=== PATIENT | male | born 1965 | race Caucasian/White ===

== ENCOUNTER 2019-03-27 14:45 | Inpatient (IN) ==
[2019-03-27 15:18] LABS: Microscopic, Urine URINE MICROSCOPIC (MICROSCOPIC)
[2019-03-27 15:21] LABS: Appearance,Urine CLEAR (Clear); Blood, Urine TRACE-I (Negative); Color,Urine YELLOW (Yellow); Glucose,Urine (UA) Negative (Negative); Ketones,Urine 3+ (Negative); Leukocyte Esterase,Urine Negative (Negative); Protein,Urine 1+ (Negative); Specific Gravity, Urine >= 1.030 (1.005-1.030)
--- NOTE | 2019-03-27 15:34 | Emergency Department Note ---
ED Disposition Clinical Impression: Dehydration, Intractable diarrhea, Colitis, Proctitis, Infectious colitis Disposition: Admitted as Observation Condition on Discharge: Fair Additional Instructions: Patient was admitted to the floor under Dr. Deng to Dr. Batista. Referrals: Cristobal Batista MD [Primary Care Provider] - Time of Disposition: 18:48 - Critical Care Critical Care Time: No Attestation: On 03/27/19, the high probability of a clinically significant, sudden or life threatening deterioration of the following system(s) required my full and direct attention, intervention and personal management. The time I documented below is in addition to time spent performing reported procedures but includes the following listed in this critical care notation. Medical Decision Making - Eusebio Inquiry Pt receiving controlled substance: No Vital Signs: 03/27/19 15:05 Temperature 98.4 F Temperature Source Oral Pulse Rate [Right Radial] 122 H Respiratory Rate 18 Blood Pressure [Right Arm] 129/71 Blood Pressure Mean [Right Arm] 90 02 Sat by Pulse Oximetry 97 Oxygen Delivery Method Room Air - Lab Data Lab results reviewed: Yes: I reviewed the patient's lab results. Lab Results 03/27/19 15:15: Urine Color Yellow, Urine Appearance Clear, Urine pH 6.0, Ur Specific [place] >= 1.030, Urine Protein 1+, Urine Glucose (UA) Negative, Urine Ketones 3+, Urine Blood Trace-i, Urine Nitrate Negative, Urine Bilirubin Negative, Urine Urobilinogen 1.0, Ur Leukocyte Esterase Negative, Urine RBC Occasional, Urine WBC 3-5, Ur Squamous Epith Cells 3-5, Urine Bacteria Trace 03/27/19 15:30: WBC 9.3, RBC 4.37 L, Hgb 12.8 L, Hct 38.1 L, MCV 87.2, MCH 29.3, MCHC 33.7, RDW 13.7, Plt Count 361, MPV 7.6, Neut % (Auto) 72.7, Lymph % (Auto) 13.7, [place] % (Auto) 9.2, Eos % (Auto) 3.7, Baso % (Auto) 0.7, Neut # (Auto) 6.8, Lymph # (Auto) 1.3, [place] # (Auto) 0.9, Eos # (Auto) 0.3, Baso # (Auto) 0.1 02/17/20 15:30: Sodium 135 L, Potassium 3.0 L, Chloride 99, Carbon Dioxide 20 L, Anion Gap 19.0 H, BUN 7, Creatinine 0.86, Estimated Creat Clear 119, Estimated GFR 93, Est GFR ( Amer) 112, Glucose 204 H, Calcium 7.8 L, Total Bilirubin 0.8, AST 11 L, ALT 13 L, Alkaline Phosphatase 52, C-Reactive Protein 24.3 H, Total Protein 6.5, Albumin 2.2 L, Globulin 4.3 H, Albumin/Globulin Ratio 0.5 L, Amylase 29, Lipase 148 03/27/19 15:30: ESR 94 H 03/27/19 15:30: Lactate 1.4 Result diagrams: 03/27/19 15:30 03/27/19 15:30 Orders (Tests/Meds): ED MEDICATIONS Generic Name Dose Route Start Last Admin Trade Name Freq PRN Reason Stop Dose Admin Sodium Chloride 1,000 mls @ 999 mls/hr 03/27/19 16:30 03/27/19 18:18 Sod Chlor 0.9% 1000ml Bag IV 03/27/19 17:30 999 mls/hr .Q1H1M DOMINIQUE Administration Sodium Chloride 10 ml 03/27/19 16:08 03/27/19 16:11 Rad-Saline Flush 10ml Syringe IV 04/26/19 16:07 10 ml NEEDED PRN Administration Maintain IV Site Sodium Chloride 10 ml 03/27/19 16:27 Saline Flush 10ml Syringe IV 03/28/19 04:27 NEEDED PRN Maintain IV Site Discontinued Medications Generic Name Dose Route Start Last Admin Trade Name Freq PRN Reason Stop Dose Admin Sodium Chloride 1,000 mls @ 999 mls/hr 03/27/19 15:15 03/27/19 15:30 Sod Chlor 0.9% 1000ml Bag IV 03/27/19 16:15 999 mls/hr .Q1H1M DOMINIQUE Administration Ioversol 75 ml 03/27/19 16:08 03/27/19 16:11 Rad-Optiray 350 100ml Vial IV 03/27/19 16:09 75 ml ONCE ONE Administration Protocol ORDERS Category Date Time Status Diarrhea 6-11 Panel, Cdiff PCR Stat Lab 03/27/19 15:11 Ordered Blood Culture Stat Micro 03/27/19 15:30 Received - CT Data CT Scan: Abdomen Time Received: 18:[address] Reviewed: Yes: I discussed the CT results w/the radiologist Findings Narrative: CT ABDOMEN PELVIS W CON CLINICAL INDICATION: DIARRHEA COMPARISON: CT ABDOMEN PELVIS W CON from 03/09/2019 TECHNIQUE: IV Contrast: 75ML OPTIRAY 350 Oral Contrast 20ml Gastroview Axial images obtained with sagittal and coronal reformats. All CT scans at the facility use one or more dose reduction, viz: automated exposure control, ma/kV adjustment per patient size (including targeted exams where dose is matched to indication, i.e. head), or iterative reconstruction technique. FINDINGS: LOWER THORAX: No acute finding coronary arterial calcifications are noted. ABDOMEN & PELVIS: There is fatty infiltration of the liver. The liver, spleen, pancreas, adrenal glands, and kidneys show no acute finding. No intestinal obstruction or free air. No evidence of appendicitis or diverticulitis. No pelvic mass, or abnormal fluid collection. There is colitis increased over the interval extending from the splenic flexure to the rectum. There is wall thickening and increased attenuation of adjacent pericolonic/rectal fat planes. There is some fluid within the lumen of the involved colon. No abscess free air free fluid or bowel obstruction is apparent. There is some wall thickening of nondistended urinary bladder probably nonpathological related to the nondistention. Cystitis is felt to be less likely. Degenerative disc disease is noted L5-S1. No acute bony anomalies. IMPRESSION: Colitis/proctitis from the level of the splenic flexure. This is increased over the interval. Dictated by: Esau Serna 03/27/2019 16:30 Electronically signed by Esau Serna in [place] 03/27/2019 16:30 - Physician Consults Physician Consulted: Dr. Deng Time: 18:40 Reason -: Admission Comment/Response: Discussed with Dr. Deng, regarding the patient and plan to get the patient admitted for IV antibiotics as well as IV hydration and surgical consult for colonoscopy and further management. - Reevaluation(s) Time: 18:45 Reevaluation #1: Patient has been stable throughout the course of stay in the ER. Discussed the lab values and the CT scan finding with the patient and the family. Plan to discuss the case with the primary care provider in regards to admission and colonoscopy through surgical consult. Discussed with Dr. Deng regarding the patient and he agreed to admit the patient. Nausea/Vomiting/Diarrhea HPI - General Chief complaint: Nausea/Vomiting/Diarrhea Stated complaint: diarrhea,abd pain Time Seen by Provider: 03/27/19 15:31 Mode of Arrival: Ambulatory Source of Information: Patient Limitations: No Limitations Description of Symptoms (Recalled from ER Triage Doc. by RN): received to exam 11 with c/o diarrhea x 1 month. pt states he has seen sandra for complaint but today when he called he was told to come to ed for eval. - History of Present Illness HPI Narrative: 53-year-old male presents to the emergency department with chief complaint of having nausea and vomiting since yesterday. Patient states he has been having diarrheal episode for more than a month. He states he is not able to eat much. He has history of diabetes. Every time he eats a few bites he gets full. Every time he eats he has to go to the bathroom after the eating. He had come to the emergency department about 2 weeks ago had a CT scan done for the same. No acute definitive diagnosis was found. He has taken medications for the same. Still his symptoms have been persistent. He has a scheduled a GI appointment through his primary care provider but the appointment is after 2 months. Denies having any fever or chills. Denies having any dysuria or hematuria. - Related Data Home Medications Medication Instructions Recorded Confirmed Aspirin [Aspir-Low] 81 mg PO DAILY 03/27/19 03/27/19 Atorvastatin Calcium [Atorvastatin 80 mg PO HS 03/27/19 03/27/19 80mg Tab] Clopidogrel Bisulfate [Plavix 75mg 75 mg PO DAILY 03/27/19 03/27/19 Tab] Empagliflozin [Jardiance] 25 mg PO DAILY 03/27/19 03/27/19 Glimepiride 4 mg PO BID 03/27/19 03/27/19 Metformin HCl [Metformin 1000mg 1,000 mg PO BID 03/27/19 03/27/19 Tablets] Metoprolol Tartrate [Lopressor 12.5 mg PO BID 03/27/19 03/27/19 25mg tablet] lisinopriL [Lisinopril 5mg 5 mg PO DAILY 03/27/19 03/27/19 Tablet] Allergies Allergy/AdvReac Type Severity Reaction Status Date / Time No Known Allergies Allergy Verified 03/27/19 15:10 [facility] History - Hepatitis A Screen Drug use history?: No High risk sexual behaviors?: No History of sexually transmitted infection?: No Currently employed?: No Childcare worker?: No Do you have indoor plumbing?: Yes Do you have electricity?: Yes Attestation statement:: This patient has been screened for Hepatitis A risk factors. I have reviewed the patient's past medical history: Yes Medical History: Reports:: Diabetes Mellitus Type 2 Denies:: Diabetes Mellitus Type 1 - Social History Smoking Status: Former smoker Alcohol Intake: never Occupational Status: other ROS Obtained: Yes All systems reviewed & no additional complaints Physical Exam - General General appearance: alert, in no apparent distress - Head Head exam: atraumatic, normocephalic, normal inspection - Eye Eye exam: Present: normal appearance, PERRL, EOMI - ENT ENT exam: Present: normal exam, normal oropharynx, mucous membranes moist, normal external ear exam - Neck Neck exam: Present: normal inspection, full ROM, trachea midline - Chest Chest inspection: Present: normal inspection, symmetric chest wall rise. Absent: tenderness - Respiratory Respiratory exam: Present: normal lung sounds bilaterally. Absent: respiratory distress - Cardiovascular Cardiovascular exam: Present: regular rate, normal rhythm. Absent: JVD - Abdominal Exam Abdominal exam: Present: soft, normal bowel sounds. Absent: distention, tenderness, guarding - Extremities Exam Extremities exam: Present: normal inspection, full ROM, normal capillary refill. Absent: calf tenderness - Back Exam Back exam: Present: normal inspection. Absent: tenderness - Neurological Exam Neurological exam: Present: alert, oriented X3, CN II-XII intact - Psychiatric Psychiatric exam: Present: normal affect, normal mood - Skin Skin exam: Present: warm, dry, intact, normal color
[2019-03-27 15:51] LABS: Albumin Level 2.2 g/dL (3.4-5.0); Albumin/Globulin Ratio 0.5 (1.1-1.8); Bilirubin,Total 0.8 mg/dL (0.2-1.0); Calcium 7.8 mg/dL (8.5-10.1); Globulin 4.3 gm/dl (1.3-3.2); Total Protein,Serum 6.5 g/dL (6.4-8.2)
[2019-03-27 15:54] LABS: Bacteria,Urine Trace /lpf; Bilirubin,Urine Negative (Negative); RBC,Urine Occasional #/hpf (0-3)
[2019-03-27 15:56] LABS: Basophils # 0.1 K/mm3 (0-0.2); Basophils % 0.7 % (0.1-2.0); Eosinophils # 0.3 K/mm3 (0.0-0.4); Eosinophils % 3.7 % (0.1-12.0); Hematocrit 38.1 % (42.0-52.0); Hemoglobin 12.8 g/dL (14.1-18.0); Lymphocytes # 1.3 K/mm3 (0.7-4.5); Lymphocytes % 13.7 % (10-50); Mean Corpuscular HGB Conc 33.7 g/dL (31.8-35.4); Mean Corpuscular Volume 87.2 fl (80-94); Mean Platelet Volume 7.6 fl (7.4-10.4); Monocytes # 0.9 K/mm3 (0.1-1.0); Monocytes % 9.2 % (1.7-9.3); Neutrophils # 6.8 K/mm3 (1.8-7.8); Neutrophils % 72.7 % (37.0-80.0); Platelet Count 361 K/mm3 (142-424); Red Blood Count 4.37 M/mm3 (4.60-6.20); Red Cell Distribution Width 13.7 % (11.5-17.5); White Blood Count 9.3 K/mm3 (4.8-10.8)
[2019-03-27 16:14] LABS: C-Reactive Protein 24.3 mg/dL (0.0-0.9)
--- NOTE | 2019-03-28 07:28 | Pharmacy Consult Notes ---
[facility] Pharmacy VTE Monitoring - Patient Demographics Admission date: 03/27/19 Report Date: 03/28/19 Time: 07:28 Allergies/Adverse Reactions: Patient Allergies No Known Allergies Allergy (Verified 03/27/19 15:10) Height: 1.7 m Weight: 78.13 kg Patient Problems: Current Active Problems Infectious colitis (Acute) Dehydration (Acute) Intractable diarrhea (Acute) Colitis (Acute) Proctitis (Acute) - VTE Risk Labs: VTE Related Lab Results Hgb 12.8 g/dL (14.1-18.0) L 03/27/19 15:30 Hct 38.1 % (42.0-52.0) L 03/27/19 15:30 Plt Count 361 K/mm3 (142-424) 03/27/19 15:30 BUN 7 mg/dL (7-18) 03/27/19 15:30 Creatinine 0.86 mg/dL (0.70-1.30) 03/27/19 15:30 Estimated Creat Clear 119 mL/min (50-200) 03/27/19 15:30 VTE Score: 3 VTE Risk Level: Low Risk - Prophylaxis VTE Prophylaxis Ordered?: Yes Types of VTE Prophylaxis: TEDS Knee High Location of Applied Device: Bilateral Lower Extremeties Pharmacologic Type: Other (clopidogrel)
[2019-03-28 07:31] LABS: Eosinophils # 0.3 K/mm3 (0.0-0.4); Monocytes # 0.8 K/mm3 (0.1-1.0)
[2019-03-28 07:48] LABS: Anion Gap 15.6 mEq/L (5-15); Basophils % 0.5 % (0.1-2.0); Calcium 7.1 mg/dL (8.5-10.1); Eosinophils % 3.4 % (0.1-12.0); Hematocrit 33.5 % (42.0-52.0); Lymphocytes # 0.9 K/mm3 (0.7-4.5); Mean Corpuscular HGB Conc 32.9 g/dL (31.8-35.4); Mean Corpuscular Volume 88.2 fl (80-94); Mean Platelet Volume 7.7 fl (7.4-10.4); Monocytes % 9.1 % (1.7-9.3); Neutrophils # 6.5 K/mm3 (1.8-7.8); Platelet Count 317 K/mm3 (142-424); Red Cell Distribution Width 13.6 % (11.5-17.5); White Blood Count 8.5 K/mm3 (4.8-10.8)
--- NOTE | 2019-03-28 08:16 | Consult Report ---
*Admission Date: 03/27/19 *Reason for consult:: Colitis, possible colonoscopy *History of present illness: Patient is a 53-year-old white male. He states that for about a month he has had some symptoms of diarrhea and some vague abdominal pain. He is also had some diminished appetite. He had been seen in the emergency department about 3 weeks ago with the symptoms and CT scan at that time was reportedly unremarkable. Of note, the patient is on Plavix for history of coronary artery disease. He has had some rectal bleeding. His symptoms have been progressive yesterday with development of some nausea and ongoing diarrhea. He presented to the emergency department where he was seen and evaluated. CT scan revealed findings of diffuse left-sided colitis with thickening from the splenic flexure to the rectum reportedly. He was admitted for inpatient management and surgical consultation was requested. Review of Systems - Review of Systems Review of systems:: pertinent systems reviewed and negative unless documented below [facility] History Medical History: Reports:: Diabetes Mellitus Type 2, Hyperlipidemia, Hypertension, Myocardial Infarction (10 YEARS AGO) Denies:: Diabetes Mellitus Type 1 *Have you ever received a pneumonia vaccine?: No *Have you received a flu vaccine this season?: Yes Other Surgeries: Yes: Cardiac Catheterization - *Social History Educational Level: Completed High School Smoking Status: Former smoker Tobacco Type: cigarettes # Packs/Day (cigarettes): 1 #Yrs smoked (if former smoker): 18 Alcohol Intake: never *Occupational Status:: employed Housing: house Household Members: spouse, children *Travel in the last 8 weeks: None Family Hx:: Heart Attack Meds Home Medications Medication Instructions Recorded Confirmed Type Aspirin [Aspir-Low] 81 mg PO DAILY 03/27/19 03/27/19 History Atorvastatin Calcium [Atorvastatin 80 mg PO HS 03/27/19 03/28/19 History 80mg Tab] Clopidogrel Bisulfate [Plavix 75mg 75 mg PO DAILY 03/27/19 03/28/19 History Tab] Empagliflozin [Jardiance] 25 mg PO DAILY 03/27/19 03/28/19 History Glimepiride 4 mg PO BID 03/27/19 03/28/19 History Metformin HCl [Metformin 1000mg 1,000 mg PO BID 03/27/19 03/28/19 History Tablets] Metoprolol Tartrate [Lopressor 12.5 mg PO BID 03/27/19 03/28/19 History 25mg tablet] lisinopriL [Lisinopril 5mg 5 mg PO DAILY 03/27/19 03/28/19 History Tablet] Allergies Allergy/AdvReac Type Severity Reaction Status Date / Time No Known Allergies Allergy Verified 03/27/19 15:10 Exam Vital signs and Labs for Last 24 Hours: Temp Pulse Resp BP Pulse Ox 99.5 F 99 H 17 97/52 L 97 03/28/19 04:00 03/28/19 04:00 03/28/19 04:00 03/28/19 04:00 03/28/19 04:00 Laboratory Results - last 24 hr 03/27/19 15:15: Urine Color Yellow, Urine Appearance Clear, Urine pH 6.0, Ur Specific [place] >= 1.030, Urine Protein 1+, Urine Glucose (UA) Negative, Urine Ketones 3+, Urine Blood Trace-i, Urine Nitrate Negative, Urine Bilirubin Negat tonie, Urine Urobilinogen 1.0, Ur Leukocyte Esterase Negative, Urine RBC Occasional, Urine WBC 3-5, Ur Squamous Epith Cells 3-5, Urine Bacteria Trace 03/27/19 15:30: WBC 9.3, RBC 4.37 L, Hgb 12.8 L, Hct 38.1 L, MCV 87.2, MCH 29.3, MCHC 33.7, RDW 13.7, Plt Count 361, MPV 7.6, Neut % (Auto) 72.7, Lymph % (Auto) 13.7, [place] % (Auto) 9.2, Eos % (Auto) 3.7, Baso % (Auto) 0.7, Neut # (Auto) 6.8, Lymph # (Auto) 1.3, [place] # (Auto) 0.9, Eos # (Auto) 0.3, Baso # (Auto) 0.1 03/27/19 15:30: Sodium 135 L, Potassium 3.0 L, Chloride 99, Carbon Dioxide 20 L, Anion Gap 19.0 H, BUN 7, Creatinine 0.86, Estimated Creat Clear 119, Estimated GFR 93, Est GFR ( Amer) 112, Glucose 204 H, Calcium 7.8 L, Total Bilirubin 0.8, AST 11 L, ALT 13 L, Alkaline Phosphatase 52, C-Reactive Protein 24.3 H, Total Protein 6.5, Albumin 2.2 L, Globulin 4.3 H, Albumin/Globulin Ratio 0.5 L, Amylase 29, Lipase 148 03/27/19 15:30: ESR 94 H 03/27/19 15:30: Lactate 1.4 03/27/19 18:40: Stl Aeromonas (PCR) Not detected, Stl C. cayetanensis PCR Not detected, Stool Rotavirus (PCR) Not detected, Stl Adenov F 40/41 PCR Not detected, Stool Astrovirus (PCR) Not detected, Stool Campylobacter PCR Not detected, Stl C.difficile Tox PCR Not detected, Stool Cryptosporidium PCR Not detected, Stl E.coli Shiga Tox PCR Not detected, Stool E coli O157 PCR Not detected, Stl Enterotoxigenic E PCR Not detected, Stool EPEC (PCR) Not detected, Stool EAEC (PCR) Not detected, Stl E. histolytica PCR Not detected, Stool Giardia Lamblia PCR Not detected, Stool Salmonella PCR Not detected, Stool S apovirus (PCR) Not detected, Stl P. shigelloides PCR Not detected, Stl Shigella/EIEC PCR Not detected, St Y.enterocolitica PCR Not detected, Stool Vibrio (PCR) Not detected, Stl Vibrio cholerae PCR Not detected, Stl Norovirus GI/GII PCR Not detected 03/28/19 01:00: POC Glucose 218 H 03/28/19 06:50: WBC 8.5, RBC 3.80 L, Hgb 11.0 L D, Hct 33.5 L, MCV 88.2, MCH 29.0, MCHC 32.9, RDW 13.6, Plt Count 317, MPV 7.7, Neut % (Auto) 77.0, Lymph % (Auto) 10.0, [place] % (Auto) 9.1, Eos % (Auto) 3.4, Baso % (Auto) 0.5, Neut # (Auto) 6.5, Lymph # (Auto) 0.9, [place] # (Auto) 0.8, Eos # (Auto) 0.3, Baso # (Auto) 0.0 03/28/19 06:50: Sodium 134 L, Potassium 2.6 L*, Chloride 101, Carbon Dioxide 20 L, Anion Gap 15.6 H, BUN 4 L D, Creatinine 0.79, Estimated Creat Clear 118, Estimated GFR 102, Est GFR ( Amer) 124, Glucose 177 H, Calcium 7.1 L I & O for Last 24 hours: Intake & Output 03/25/19 03/26/19 03/27/19 03/28/19 11:59 11:59 11:59 11:59 Intake Total 250 / 250 Output Total 121 / 121 Balance 129 / 129 Weight 172 lb 3.954 oz Narrative: On examination his abdomen is soft. He does have some tenderness without guarding or rebound in the left lower quadrant. Results - Labs 03/28/19 06:50 03/28/19 06:50 Laboratory Results - last 24 hr 03/27/19 15:15: Urine Color Yellow, Urine Appearance Clear, Urine pH 6.0, Ur Specific [place] >= 1.030, Urine Protein 1+, Urine Glucose (UA) Negative, Urine Ketones 3+, Urine Blood Trace-i, Urine Nitrate Negative, Urine Bilirubin Negative, Urine Urobilinogen 1.0, Ur Leukocyte Esterase Negative, Urine RBC Occasional, Urine WBC 3-5, Ur Squamous Epith Cells 3-5, Urine Bacteria Trace 03/27/19 15:30: WBC 9.3, RBC 4.37 L, Hgb 12.8 L, Hct 38.1 L, MCV 87.2, MCH 29.3, MCHC 33.7, RDW 13.7, Plt Count 361, MPV 7.6, Neut % (Auto) 72.7, Lymph % (Auto) 13.7, [place] % (Auto) 9.2, Eos % (Auto) 3.7, Baso % (Auto) 0.7, Neut # (Auto) 6.8, Lymph # (Auto) 1.3, [place] # (Auto) 0.9, Eos # (Auto) 0.3, Baso # (Auto) 0.1 03/27/19 15:30: Sodium 135 L, Potassium 3.0 L, Chloride 99, Carbon Dioxide 20 L, Anion Gap 19.0 H, BUN 7, Creatinine 0.86, Estimated Creat Clear 119, Estimated GFR 93, Est GFR ( Amer) 112, Glucose 204 H, Calcium 7.8 L, Total Bilirubin 0.8, AST 11 L, ALT 13 L, Alkaline Phosphatase 52, C-Reactive Protein 24.3 H, Total Protein 6.5, Albumin 2.2 L, Globulin 4.3 H, Albumin/Globulin Ratio 0.5 L, Amylase 29, Lipase 148 03/27/19 15:30: ESR 94 H 03/27/19 15:30: Lactate 1.4 03/27/19 18:40: Stl Aeromonas (PCR) Not detected, Stl C. cayetanensis PCR Not detected, Stool Rotavirus (PCR) Not detected, Stl Adenov F 40/41 PCR Not detected, Stool Astrovirus (PCR) Not detected, Stool Campylobacter PCR Not detected, Stl C.difficile Tox PCR Not detected, Stool Cryptosporidium PCR Not detected, Stl E.coli Shiga Tox PCR Not detected, Stool E coli O157 PCR Not detected, Stl Enterotoxigenic E PCR Not detected, Stool EPEC (PCR) Not detected, Stool EAEC (PCR) Not detected, Stl E. histolytica PCR Not detected, Stool Giardia Lamblia PCR Not detected, Stool Salmonella PCR Not detected, Stool Sapovirus (PCR) Not detected, Stl P. shigelloides PCR Not detected, Stl Shigella/EIEC PCR Not detected, St Y.enterocolitica PCR Not detected, Stool Vibrio (PCR) Not detected, Stl Vibrio cholerae PCR Not detected, Stl Norovirus GI/GII PCR Not detected 03/28/19 01:00: POC Glucose 218 H 03/28/19 06:50: WBC 8.5, RBC 3.80 L, Hgb 11.0 L D, Hct 33.5 L, MCV 88.2, MCH 29.0, MCHC 32.9, RDW 13.6, Plt Count 317, MPV 7.7, Neut % (Auto) 77.0, Lymph % (Auto) 10.0, [place] % (Auto) 9.1, Eos % (Auto) 3.4, Baso % (Auto) 0.5, Neut # (Auto) 6.5, Lymph # (Auto) 0.9, [place] # (Auto) 0.8, Eos # (Auto) 0.3, Baso # (Auto) 0.0 03/28/19 06:50: Sodium 134 L, Potassium 2.6 L*, Chloride 101, Carbon Dioxide 20 L, Anion Gap 15.6 H, BUN 4 L D, Creatinine 0.79, Estimated Creat Clear 118, Ludy mated GFR 102, Est GFR ( Amer) 124, Glucose 177 H, Calcium 7.1 L Assessment and Plan - Assessment and plan all Dx Assessment and Plan for all problems:: Patient has findings and clinical scenario consistent with colitis. Etiology is uncertain. Stool PCR panel is negative for infectious etiology at this time. No indications for immediate colonoscopy for diagnostic purposes at this time. Recommend continuation of medical therapy. Could require sigmoidoscopy if etiol ogy of left-sided colitis is unclear.
--- NOTE | 2019-03-28 09:27 | History & Physical Report ---
*Admission Date: 03/27/19 <Arin Alejandra 03/28/19 09:37> *Chief complaint: Nausea, vomiting, diarrhea <Arin Alejandra 03/28/19 09:37> *History of present illness: Mr. Fountain is a 53-year-old male with a history of hypertension, diabetes, hyperlipidemia, and acute MS in 2009 with stent placement who presented to the emergency room with acute nausea, vomiting, and diarrhea. Patient reports that he has had diarrhea for the past month. Symptoms progressed and he has been worse for the last 5 days. He has been unable to retain food, liquids or meds. He denies having a fever. He has had some bloody stools but denies hematemesis. He describes stomach cramping. He thus presented to [facility] emergency room for evaluation. In the emergency room he received a liter of IV fluids. CT of the abdomen revealed colitis/proctitis from the level of the splenic flexure which had increased from previous CT scan 2 weeks ago. He was then admitted for IV fluids, antibiotics, and surgical consult. He has been seen by surgeon Dr. Summers today. With assessment that the patient's findings and clinical scenario are more consistent with colitis with negative stool PCR panel for infectious etiology. He felt that there were no indications for immediate colonoscopy and recommended continuation of medical therapy. This a.m. patient is feeling somewhat better. He has been n.p.o. for the consult this morning. He did have diarrhea stools during the night since admission. He will try clear liquids this morning. <Arin Alejandra 03/28/19 09:37> [facility] History I have reviewed the patient's past medical history: Yes <Arin Alejandra 03/28/19 09:37> Medical History: Reports:: Diabetes Mellitus Type 2, Hyperlipidemia, Hypertension, Myocardial Infarction (10 YEARS AGO) Denies:: Diabetes Mellitus Type 1 <JustynArin 03/28/19 09:37> *Have you ever received a pneumonia vaccine?: No <JustynArin - 03/28/19 09:37> *Have you received a flu vaccine this season?: Yes <Arin Alejandra 03/28/19 09:37> Other Surgeries: Yes: Cardiac Catheterization, Coronary Stent <Arin Alejandra 03/28/19 09:37> - *Social History Educational Level: Completed High School <JustynArin 03/28/19 09:37> Smoking Status: Former smoker <JustynArin 03/28/19 09:37> Tobacco Type: cigarettes <JustynArin 03/28/19 09:37> # Packs/Day (cigarettes): 1 <JustynArin 03/28/19 09:37> #Yrs smoked (if former smoker): 18 <AlejandraArin 03/28/19 09:37> Alcohol Intake: never <JustynArin 03/28/19 09:37> *Occupational Status:: employed <AlejandraArin 03/28/19 09:37> Housing: house <JustynArin 03/28/19 09:37> Household Members: spouse, children <AlejandraArin 03/28/19 09:37> *Travel in the last 8 weeks: None <Alejandra,Arin 03/28/19 09:37> Family Hx:: Diabetes, Heart Attack <Alejandra,Arin 03/28/19 09:37> Review of Systems - Constitutional Reports weakness, Denies headache(s) <Alejandra,Arin 03/28/19 09:37> - Eyes Denies change in vision <JustynArin 03/28/19 09:37> - ENT Denies ear pain, Denies sore throat <Alejandra,Arin 03/28/19 09:37> - *Cardiovascular Reports leg swelling (Right knee and lower leg), Denies chest pain, Denies shortness of breath <Arin Alejandra 03/28/19 09:37> - *Respiratory Denies chest congestion, Denies cough, Denies shortness of breath <Alejandra,Arin 03/28/19 09:37> - *Gastrointestinal Reports abdominal pain, Reports loose stools, Reports bright, red blood in stools, Reports nausea, Reports vomiting, Denies heartburn, Denies vomiting blood <Arin Alejandra 03/28/19 09:37> - *Genitourinary Denies difficulty urinating <Arin Alejandra 03/28/19 09:37> - *Musculoskeletal Reports joint pain (Right knee; has been wearing soft knee brace) <Arin Alejandra - 03/28/19 09:37> - *Neurologic Denies frequent falls, Denies seizure-like activity, Denies fainting, Denies dizziness <Maddison Alejandrahy - 03/28/19 09:37> Meds Home Medications Medication Instructions Recorded Confirmed Type Aspirin [Aspir-Low] 81 mg PO DAILY 03/27/19 03/27/19 History Atorvastatin Calcium [Atorvastatin 80 mg PO HS 03/27/19 03/28/19 History 80mg Tab] Clopidogrel Bisulfate [Plavix 75mg 75 mg PO DAILY 03/27/19 03/28/19 History Tab] Empagliflozin [Jardiance] 25 mg PO DAILY 03/27/19 03/28/19 History Glimepiride 4 mg PO BID 03/27/19 03/28/19 History Metformin HCl [Metformin 1000mg 1,000 mg PO BID 03/27/19 03/28/19 History Tablets] Metoprolol Tartrate [Lopressor 12.5 mg PO BID 03/27/19 03/28/19 History 25mg tablet] lisinopriL [Lisinopril 5mg 5 mg PO DAILY 03/27/19 03/28/19 History Tablet] Diclofenac Sodium [Diclofenac 75mg 75 mg PO BID 03/28/19 03/28/19 History Tab] <Cristobal Batista - 03/28/19 14:32> Allergies Allergy/AdvReac Type Severity Reaction Status Date / Time No Known Allergies Allergy Verified 03/27/19 15:10 <Cristobal Batista - 03/28/19 14:32> Exam Vital signs and Labs for Last 24 Hours: Temp Pulse Resp BP Pulse Ox 99.0 F 98 H 18 82/50 L 96 03/28/19 08:00 03/28/19 08:00 03/28/19 08:00 03/28/19 08:00 03/28/19 08:00 Laboratory Results - last 24 hr 03/27/19 15:15: Urine Color Yellow, Urine Appearance Clear, Urine pH 6.0, Ur Specific Protection >= 1.030, Urine Protein 1+, Urine Glucose (UA) Negative, Urine Ketones 3+, Urine Blood Trace-i, Urine Nitrate Negative, Urine Bilirubin Negative, Urine Urobilinogen 1.0, Ur Leukocyte Esterase Negative, Urine RBC Occasional, Urine WBC 3-5, Ur Squamous Epith Cells 3-5, Urine Bacteria Trace 03/27/19 15:30: WBC 9.3, RBC 4.37 L, Hgb 12.8 L, Hct 38.1 L, MCV 87.2, MCH 29.3, MCHC 33.7, RDW 13.7, Plt Count 361, MPV 7.6, Neut % (Auto) 72.7, Lymph % (Auto) 13.7, [place] % (Auto) 9.2, Eos % (Auto) 3.7, Baso % (Auto) 0.7, Neut # (Auto) 6.8, Lymph # (Auto) 1.3, [place] # (Auto) 0.9, Eos # (Auto) 0.3, Baso # (Auto) 0.1 03/27/19 15:30: Sodium 135 L, Potassium 3.0 L, Chloride 99, Carbon Dioxide 20 L, Anion Gap 19.0 H, BUN 7, Creatinine 0.86, Estimated Creat Clear 119, Estimated GFR 93, Est GFR ( Amer) 112, Glucose 204 H, Calcium 7.8 L, Total Bilirubin 0.8, AST 11 L, ALT 13 L, Alkaline Phosphatase 52, C-Reactive Protein 24.3 H, Total Protein 6.5, Albumin 2.2 L, Globulin 4.3 H, Albumin/Globulin Ratio 0.5 L, Amylase 29, Lipase 148 03/27/19 15:30: ESR 94 H 03/27/19 15:30: Lactate 1.4 03/27/19 18:40: Stl Aeromonas (PCR) Not detected, Stl C. [place]ayet[place]ensis PCR Not detected, Stool Rotavirus (PCR) Not detected, Stl Adenov F 40/41 PCR Not detected, Stool Astrovirus (PCR) Not detected, Stool Campylobacter PCR Not detected, Stl C.difficile Tox PCR Not detected, Stool Cryptosporidium PCR Not detected, Stl E.coli Shiga Tox PCR Not detected, Stool E coli O157 PCR Not detected, Stl Enterotoxigenic E PCR Not detected, Stool EPEC (PCR) Not detected, Stool EAEC (PCR) Not detected, Stl E. histolytica PCR Not detected, Stool Giardia [place] PCR Not detected, Stool Salmonella PCR Not detected, Stool Sapovirus (PCR) Not detected, Stl P. shigelloides PCR Not detected, Stl Shigella/EIEC PCR Not detected, St Y.enterocolitica PCR Not detected, Stool Vibrio (PCR) Not detected, Stl Vibrio cholerae PCR Not detected, Stl Norovirus GI/GII PCR Not detected 03/28/19 01:00: POC Glucose 218 H 03/28/19 05:31: POC Glucose 175 H 03/28/19 06:50: WBC 8.5, RBC 3.80 L, Hgb 11.0 L D, Hct 33.5 L, MCV 88.2, MCH 29.0, MCHC 32.9, RDW 13.6, Plt Count 317, MPV 7.7, Neut % (Auto) 77.0, Lymph % (Auto) 10.0, [place] % (Auto) 9.1, Eos % (Auto) 3.4, Baso % (Auto) 0.5, Neut # (Auto) 6.5, Lymph # (Auto) 0.9, [place] # (Auto) 0.8, Eos # (Auto) 0.3, Baso # (Auto) 0.0 03/28/19 06:50: Sodium 134 L, Potassium 2.6 L*, Chloride 101, Carbon Dioxide 20 L, Anion Gap 15.6 H, BUN 4 L D, Creatinine 0.79, Estimated Creat Clear 118, Estimated GFR 102, Est GFR ( Amer) 124, Glucose 177 H, Calcium 7.1 L 03/28/19 11:33: POC Glucose 246 H <Cristobal Batista - 03/28/19 14:32> Temp Pulse Resp BP Pulse Ox 99.0 F 98 H 18 82/50 L 96 03/28/19 08:00 03/28/19 08:00 03/28/19 08:00 03/28/19 08:00 03/28/19 08:00 Laboratory Results - last 24 hr 03/27/19 15:15: Urine Color Yellow, Urine Appearance Clear, Urine pH 6.0, Ur Specific Protection >= 1.030, Urine Protein 1+, Urine Glucose (UA) Negative, Urine Ketones 3+, Urine Blood Trace-i, Urine Nitrate Negative, Urine Bilirubin Negative, Urine Urobilinogen 1.0, Ur Leukocyte Esterase Negative, Urine RBC Occasional, Urine WBC 3-5, Ur Squamous Epith Cells 3-5, Urine Bacteria Trace 03/27/19 15:30: WBC 9.3, RBC 4.37 L, Hgb 12.8 L, Hct 38.1 L, MCV 87.2, MCH 29.3, MCHC 33.7, RDW 13.7, Plt Count 361, MPV 7.6, Neut % (Auto) 72.7, Lymph % (Auto) 13.7, [place] % (Auto) 9.2, Eos % (Auto) 3.7, Baso % (Auto) 0.7, Neut # (Auto) 6.8, Lymph # (Auto) 1.3, [place] # (Auto) 0.9, Eos # (Auto) 0.3, Baso # (Auto) 0.1 03/27/19 15:30: Sodium 135 L, Potassium 3.0 L, Chloride 99, Carbon Dioxide 20 L, Anion Gap 19.0 H, BUN 7, Creatinine 0.86, Estimated Creat Clear 119, Estimated GFR 93, Est GFR ( Amer) 112, Glucose 204 H, Calcium 7.8 L, Total Bilirubin 0.8, AST 11 L, ALT 13 L, Alkaline Phosphatase 52, C-Reactive Protein 24.3 H, Total Protein 6.5, Albumin 2.2 L, Globulin 4.3 H, Albumin/Globulin Ratio 0.5 L, Amylase 29, Lipase 148 03/27/19 15:30: ESR 94 H 03/27/19 15:30: Lactate 1.4 03/27/19 18:40: Stl Aeromonas (PCR) Not detected, Stl C. cayetanensis PCR Not detected, Stool Rotavirus (PCR) Not detected, Stl Adenov F 40/41 PCR Not detected, Stool Astrovirus (PCR) Not detected, Stool Campylobacter PCR Not detected, Stl C.difficile Tox PCR Not detected, Stool Cryptosporidium PCR Not detected, Stl E.coli Shiga Tox PCR Not detected, Stool E coli O157 PCR Not detected, Stl Enterotoxigenic E PCR Not detected, Stool EPEC (PCR) Not detected, Stool EAEC (PCR) Not detected, Stl E. histolytica PCR Not detected, Stool Giardia [place] PCR Not detected, Stool Salmonella PCR Not detected, Stool Sapovirus (PCR) Not detected, Stl P. shigelloides PCR Not detected, Stl Shigella/EIEC PCR Not detected, St Y.enterocolitica PCR Not detected, Stool Vibrio (PCR) Not detected, Stl Vibrio cholerae PCR Not detected, Stl Norovirus GI/GII PCR Not detected 03/28/19 01:00: POC Glucose 218 H 03/28/19 06:50: WBC 8.5, RBC 3.80 L, Hgb 11.0 L D, Hct 33.5 L, MCV 88.2, MCH 29.0, MCHC 32.9, RDW 13.6, Plt Count 317, MPV 7.7, Neut % (Auto) 77.0, Lymph % (Auto) 10.0, [place] % (Auto) 9.1, Eos % (Auto) 3.4, Baso % (Auto) 0.5, Neut # (Auto) 6.5, Lymph # (Auto) 0.9, [place] # (Auto) 0.8, Eos # (Auto) 0.3, Baso # (Auto) 0.0 03/28/19 06:50: Sodium 134 L, Potassium 2.6 L*, Chloride 101, Carbon Dioxide 20 L, Anion Gap 15.6 H, BUN 4 L D, Creatinine 0.79, Estimated Creat Clear 118, Estimated GFR 102, Est GFR ( Amer) 124, Glucose 177 H, Calcium 7.1 L <Arin Alejandra - 03/28/19 09:37> I & O for Last 24 hours: Intake & Output 03/26/19 03/27/19 03/28/19 03/29/19 11:59 11:59 11:59 11:59 Intake Total 370 / 370 Output Total 121 / 121 Balance 249 / 249 Weight 172 lb 3.954 oz <Cristobal Batista - 03/28/19 14:32> Intake & Output 03/25/19 03/26/19 03/27/19 03/28/19 11:59 11:59 11:59 11:59 Intake Total 370 / 370 Output Total 121 / 121 Balance 249 / 249 Weight 172 lb 3.954 oz <Arin Alejandra - 03/28/19 09:37> Radiology Reports for the Last 24 Hours: 03/27/2019 CT of the abdomen IMPRESSION: Colitis/proctitis from the level of the splenic flexure. This is increased over the interval. <[facility] 03/28/19 09:37> - Constitutional no acute distress <[facility] 03/28/19 09:37> - *Routine HEENT Exam Head: Present: normocephalic, atraumatic <[facility] 03/28/19 09:37> Eye: Present: PERRL. Absent: conjunctival icterus, scleral injection <[facility] 03/28/19 09:37> ENT: Present: mucous membranes moist, oropharynx clear <[facility] 03/28/19 09:37> - *Routine Neck Exam Present: supple. Absent: carotid bruit, lymphadenopathy, thyromegaly <[facility] 03/28/19 09:37> - *Routine Respiratory Exam Present: CTA bilaterally (Anteriorly and posteriorly) <[facility] 03/28/19 09:37> - *Routine Cardiovascular Exam Present: RRR [facility] 03/28/[facility] 09:37> - *Routine Abdominal Exam Present: soft, normoactive bowel sounds, tenderness (in right and left lower quadrants). Absent: distended <[facility] 03/28/19 09:37> - *Routine Extremities Exam Present: edema (Right knee and lower leg). Absent: calf tenderness <[facility] 03/28/19 09:37> - *Routine Neurological Exam Present: alert, oriented X3 <Alejandra,[facility] 03/28/19 09:37> Assessment and Plan (1) Colitis Current visit: Yes Status: Acute Category: Medical Code(s): K52.9 - Noninfective gastroenteritis and colitis, unspecified (2) Proctitis Current visit: Yes Status: Acute Category: Medical Code(s): K62.89 - Other specified diseases of anus and rectum (3) Hypotension Current visit: Yes Status: Acute Category: Medical Code(s): I95.9 - Hypotension, unspecified (4) Type 2 diabetes mellitus Current visit: Yes Status: Acute Category: Medical Code(s): E11.9 - Type 2 diabetes mellitus without complications (5) ASCVD (arteriosclerotic cardiovascular disease) Current visit: Yes Status: Acute Category: Medical Code(s): I25.10 - Atherosclerotic heart disease of [place] coronary artery without angina pectoris (6) Dehydration Current visit: Yes Status: Acute Category: Medical Code(s): E86.0 - Dehydration (7) Intractable diarrhea Current visit: Yes Status: Acute Category: Medical Code(s): R19.7 - Diarrhea, unspecified (8) Hypokalemia Current visit: Yes Status: Acute Category: Medical Code(s): E87.6 - Hypokalemia <Cristobal Batista - 03/28/19 14:32> (1) Hypotension Current visit: Yes Status: Acute Category: Medical Code(s): I95.9 - Hypotension, unspecified (2) Type 2 diabetes mellitus Current visit: Yes Status: Acute Category: Medical Code(s): E11.9 - Type 2 diabetes mellitus without complications (3) ASCVD (arteriosclerotic cardiovascular disease) Current visit: Yes Status: Acute Category: Medical Code(s): I25.10 - Atherosclerotic heart disease of [place] coronary artery without angina pectoris (4) Colitis Current visit: Yes Status: Acute Category: Medical Code(s): K52.9 - Noninfective gastroenteritis and colitis, unspecified (5) Dehydration Current visit: Yes Status: Acute Category: Medical Code(s): E86.0 - Dehydration (6) Infectious colitis Current visit: Yes Status: Acute Category: Medical Code(s): A09 - Infectious gastroenteritis and colitis, unspecified (7) Intractable diarrhea Current visit: Yes Status: Acute Category: Medical Code(s): R19.7 - Diarrhea, unspecified (8) Proctitis Current visit: Yes Status: Acute Category: Medical Code(s): K62.89 - Other specified diseases of anus and rectum (9) Hypokalemia Current visit: Yes Status: Acute Category: Medical Code(s): E87.6 - Hypokalemia <Arin Alejandra - 03/28/19 09:22> - Assessment and plan all Dx Assessment and Plan for all problems:: Patient seen and examined. Concur with above assessment and plan. Sugical c onsultation has also been ordered. <LynneCristobal vickers Humza - 03/28/19 14:32> CBC with a normal white blood cell count of 8500 and hemoglobin of 11 and hematocrit of 33.5 this a.m. Blood chemistry show a sodium of 134 and potassium of 2.6, BUN of 4 and creatinine of 0.79. Blood sugar was 218 this a.m. Patient has been started on IV fluids with potassium at 125/h. We will continue with the Levaquin and Flagyl IV. Diabetic medicines have been ordered. GI rest with clear liquids and Zofran as needed <Arin Alejandra - 03/28/19 09:37>
--- NOTE | 2019-03-29 07:00 | Progress Note ---
Subjective Narrative: When asked how he is feeling patient states "I am here". Specifically he does seem to be improved and states that he has less discomfort, tolerated clear liquids and it tasted good to him. He has had less bleeding and diarrhea. He denies any nausea. Exam Vital signs and Labs for Last 24 Hours: Temp Pulse Resp BP Pulse Ox 98.7 F 101 H 17 113/94 H 98 03/29/19 04:00 03/29/19 04:00 03/28/19 20:00 03/29/19 04:00 03/29/19 04:00 Laboratory Results - last 24 hr 03/28/19 05:31: POC Glucose 175 H 03/28/19 06:50: WBC 8.5, RBC 3.80 L, Hgb 11.0 L D, Hct 33.5 L, MCV 88.2, MCH 29.0, MCHC 32.9, RDW 13.6, Plt Count 317, MPV 7.7, Neut % (Auto) 77.0, Lymph % (Auto) 10.0, [place] % (Auto) 9.1, Eos % (Auto) 3.4, Baso % (Auto) 0.5, Neut # (Auto) 6.5, Lymph # (Auto) 0.9, [place] # (Auto) 0.8, Eos # (Auto) 0.3, Baso # (Auto) 0.0 03/28/19 06:50: Sodium 134 L, Potassium 2.6 L*, Chloride 101, Carbon Dioxide 20 L, Anion Gap 15.6 H, BUN 4 L D, Creatinine 0.79, Estimated Creat Clear 118, Estimated GFR 102, Est GFR ( Amer) 124, Glucose 177 H, Calcium 7.1 L 03/28/19 11:33: POC Glucose 246 H 03/28/19 16:38: POC Glucose 153 H 03/28/19 21:35: POC Glucose 157 H 03/29/19 05:18: POC Glucose 151 H I & O for Last 24 hours: Intake & Output 03/26/19 03/27/19 03/28/19 03/29/19 11:59 11:59 11:59 11:59 Intake Total 470 / 470 1714 / 1714 Output Total 121 / 121 850 / 850 Balance 349 / 349 864 / 864 Weight 172 lb 3.954 oz 172 lb 0.074 oz - *Routine Abdominal Exam Present: soft Progress Note: A&P (1) Colitis Status: Acute Current Visit: Yes (2) Proctitis Status: Acute Current Visit: Yes (3) Hypotension Status: Acute Current Visit: Yes (4) Type 2 diabetes mellitus Status: Acute Current Visit: Yes (5) ASCVD (arteriosclerotic cardiovascular disease) Status: Acute Current Visit: Yes (6) Dehydration Status: Acute Current Visit: Yes (7) Intractable diarrhea Status: Acute Current Visit: Yes (8) Hypokalemia Status: Acute Current Visit: Yes Assessment and Plan for All Diagnoses:: He is clinically improving with medical management of diffuse left-sided colitis. Patient does have an outpatient appointment with gastroenterology on June 04. If he remains an inpatient for the next 48 hours inpatient gastroenterology consultation may be considered with possible flexible sigmoidoscopy if felt to be indicated.
[2019-03-29 07:38] LABS: Basophils % 0.4 % (0.1-2.0); Eosinophils # 0.3 K/mm3 (0.0-0.4); Eosinophils % 3.5 % (0.1-12.0); Hematocrit 33.4 % (42.0-52.0); Lymphocytes # 0.9 K/mm3 (0.7-4.5); Lymphocytes % 9.7 % (10-50); Mean Corpuscular Volume 87.5 fl (80-94); Mean Platelet Volume 7.8 fl (7.4-10.4); Monocytes # 0.8 K/mm3 (0.1-1.0); Monocytes % 8.6 % (1.7-9.3); Neutrophils # 7.4 K/mm3 (1.8-7.8); Neutrophils % 77.7 % (37.0-80.0); Platelet Count 334 K/mm3 (142-424); Red Blood Count 3.81 M/mm3 (4.60-6.20); Red Cell Distribution Width 13.9 % (11.5-17.5); White Blood Count 9.6 K/mm3 (4.8-10.8)
[2019-03-29 07:46] LABS: Anion Gap 14.2 mEq/L (5-15); Calcium 7.7 mg/dl (8.4-10.2)
--- NOTE | 2019-03-29 08:14 | Progress Note ---
<Arin Alejandra - Last Filed: 03/29/19 08:10> Internal Medicine - PN: Subj *Date: 03/29/19 *Time: 08:10 Interval history: Patient states he feels better today. He and his both slept well. He was able to retain clear liquids yesterday. No further vomiting. He actually had some formed stool yesterday and states that he has seen less red stools. He is voiding QS now. Blood pressure is low this morning at 94/57. He is afebrile. Potassium has improved but is still low at 3.2. White blood cell count is 9600 with a hemoglobin of 11 hematocrit of 33.4. He has been seen by surgery who feels that he has clinically improved with medical management of diffuse left-sided colitis. Exam Vital signs and Labs for Last 24 Hours: Temp Pulse Resp BP Pulse Ox 98.1 F 103 H 16 94/57 L 97 03/29/19 07:59 03/29/19 07:59 03/29/19 07:59 03/29/19 07:59 03/29/19 07:59 Laboratory Results - last 24 hr 03/28/19 05:31: POC Glucose 175 H 03/28/19 11:33: POC Glucose 246 H 03/28/19 16:38: POC Glucose 153 H 03/28/19 21:35: POC Glucose 157 H 03/29/19 05:18: POC Glucose 151 H 03/29/19 06:50: WBC 9.6, RBC 3.81 L, Hgb 11.0 L, Hct 33.4 L, MCV 87.5, MCH 28.9, MCHC 33.0, RDW 13.9, Plt Count 334, MPV 7.8, Neut % (Auto) 77.7, Lymph % (Auto) 9.7 L, [place] % (Auto) 8.6, Eos % (Auto) 3.5, Baso % (Auto) 0.4, Neut # (Auto) 7.4, Lymph # (Auto) 0.9, [place] # (Auto) 0.8, Eos # (Auto) 0.3, Baso # (Auto) 0.0 03/29/19 06:50: Sodium 137, Potassium 3.2 L, Chloride 104, Carbon Dioxide 22, Anion Gap 14.2, BUN 2 L, Creatinine 0.80, Estimated Creat Clear 116, Estimated GFR 101, Est GFR ( Amer) 122, Glucose 125 H, Calcium 7.7 L I & O for Last 24 hours: Intake & Output 03/26/19 03/27/19 03/28/19 03/29/19 11:59 11:59 11:59 11:59 Intake Total 470 / 470 1714 / 1714 Output Total 121 / 121 850 / 850 Balance 349 / 349 864 / 864 Weight 172 lb 3.954 oz 172 lb 0.074 oz Assessment and Plan (1) Colitis Current visit: Yes Status: Acute Category: Medical Code(s): K52.9 - Noninfective gastroenteritis and colitis, unspecified (2) Proctitis Current visit: Yes Status: Acute Category: Medical Code(s): K62.89 - Other specified diseases of anus and rectum (3) Hypotension Current visit: Yes Status: Acute Category: Medical Code(s): I95.9 - Hypotension, unspecified (4) Type 2 diabetes mellitus Current visit: Yes Status: Acute Category: Medical Code(s): E11.9 - Type 2 diabetes mellitus without complications (5) ASCVD (arteriosclerotic cardiovascular disease) Current visit: Yes Status: Acute Category: Medical Code(s): I25.10 - Atherosclerotic heart disease of [place] coronary artery without angina pectoris (6) Dehydration Current visit: Yes Status: Acute Category: Medical Code(s): E86.0 - Dehydration (7) Intractable diarrhea Current visit: Yes Status: Acute Category: Medical Code(s): R19.7 - Diarrhea, unspecified (8) Hypokalemia Current visit: Yes Status: Acute Category: Medical Code(s): E87.6 - H ypokalemia - Assessment and plan all Dx Assessment and Plan for all problems:: We will need to continue with IV antibiotics and IV fluids. We will try adv ancing diet to full liquids. <Cristobal Batista - Last Filed: 03/29/19 09:35> Internal Medicine - PN: Subj *Date: 03/29/19 *Time: 09:35 Exam Vital signs and Labs for Last 24 Hours: Temp Pulse Resp BP Pulse Ox 98.1 F 103 H 16 94/57 L 97 03/29/19 07:59 03/29/19 07:59 03/29/19 07:59 03/29/19 07:59 03/29/19 07:59 Laboratory Results - last 24 hr 03/28/19 05:31: POC Glucose 175 H 03/28/19 11:33: POC Glucose 246 H 03/28/19 16:38: POC Glucose 153 H 03/28/19 21:35: POC Glucose 157 H 03/29/19 05:18: POC Glucose 151 H 03/29/19 06:50: WBC 9.6, RBC 3.81 L, Hgb 11.0 L, Hct 33.4 L, MCV 87.5, MCH 28.9, MCHC 33.0, RDW 13.9, Plt Count 334, MPV 7.8, Neut % (Auto) 77.7, Lymph % (Auto) 9.7 L, [place] % (Auto) 8.6, Eos % (Auto) 3.5, Baso % (Auto) 0.4, Neut # (Auto) 7.4, Lymph # (Auto) 0.9, [place] # (Auto) 0.8, Eos # (Auto) 0.3, Baso # (Auto) 0.0 03/29/19 06:50: Sodium 137, Potassium 3.2 L, Chloride 104, Carbon Dioxide 22, Anion Gap 14.2, BUN 2 L, Creatinine 0.80, Estimated Creat Clear 116, Estimated GFR 101, Est GFR ( Amer) 122, Glucose 125 H, Calcium 7.7 L I & O for Last 24 hours: Intake & Output 03/26/19 03/27/19 03/28/19 03/29/19 11:59 11:59 11:59 11:59 Intake Total 470 / 470 2073 / 2073 Output Total 121 / 121 850 / 850 Balance 349 / 349 1224 / 1224 Weight 172 lb 3.954 oz 172 lb 0.074 oz Assessment and Plan (1) Colitis Current visit: Yes Status: Acute Category: Medical Code(s): K52.9 - Noninfective gastroenteritis and colitis, unspecified (2) Proctitis Current visit: Yes Status: Acute Category: Medical Code(s): K62.89 - Other specified diseases of anus and rectum (3) Hypotension Current visit: Yes Status: Acute Category: Medical Code(s): I95.9 - Hypotension, unspecified (4) Type 2 diabetes mellitus Current visit: Yes Status: Acute Category: Medical Code(s): E11.9 - Type 2 diabetes mellitus without complications (5) ASCVD (arteriosclerotic cardiovascular disease) Current visit: Yes Status: Acute Category: Medical Code(s): I25.10 - Atherosclerotic heart disease of [place] coronary artery without angina pectoris (6) Dehydration Current visit: Yes Status: Acute Category: Medical Code(s): E86.0 - Dehydration (7) Intractable diarrhea Current visit: Yes Status: Acute Category: Medical Code(s): R19.7 - Diarrhea, unspecified (8) Hypokalemia Current visit: Yes Status: Acute Category: Medical Code(s): E87.6 - Hypokalemia - Assessment and plan all Dx Assessment and Plan for all problems:: Patient seen and examined. Concur with above assessment and plan.
--- NOTE | 2019-03-30 06:50 | Progress Note ---
Subjective Patient reports: feels better Exam Vital signs and Labs for Last 24 Hours: Temp Pulse Resp BP Pulse Ox 98.5 F 113 H 17 95/54 L 96 03/30/19 04:00 03/30/19 04:00 03/30/19 04:00 03/30/19 04:00 03/30/19 04:00 Laboratory Results - last 24 hr 03/29/19 06:50: WBC 9.6, RBC 3.81 L, Hgb 11.0 L, Hct 33.4 L, MCV 87.5, MCH 28.9, MCHC 33.0, RDW 13.9, Plt Count 334, MPV 7.8, Neut % (Auto) 77.7, Lymph % (Auto) 9.7 L, [place] % (Auto) 8.6, Eos % (Auto) 3.5, Baso % (Auto) 0.4, Neut # (Auto) 7.4, Lymph # (Auto) 0.9, [place] # (Auto) 0.8, Eos # (Auto) 0.3, Baso # (Auto) 0.0 03/29/19 06:50: Sodium 137, Potassium 3.2 L, Chloride 104, Carbon Dioxide 22, Anion Gap 14.2, BUN 2 L, Creatinine 0.80, Estimated Creat Clear 116, Estimated GFR 101, Est GFR ( Amer) 122, Glucose 125 H, Calcium 7.7 L 03/29/19 10:36: POC Glucose 220 H 03/29/19 16:02: POC Glucose 116 H 03/29/19 20:34: POC Glucose 115 H I & O for Last 24 hours: Intake & Output 03/27/19 03/28/19 03/29/19 03/30/19 11:59 11:59 11:59 11:59 Intake Total 470 / 470 2324 / 2324 3440 / 3440 Output Total 121 / 121 850 / 850 Balance 349 / 349 1474 / 1474 3440 / 3440 Weight 172 lb 3.954 oz 172 lb 0.074 oz 171 lb 4 oz Microbiology Reports for the Last 24 Hours: Microbiology 03/27/19 15:30 Blood Blood Culture - Preliminary NO GROWTH AFTER 48 HOURS 03/27/19 15:30 Blood Blood Culture - Preliminary NO GROWTH AFTER 48 HOURS - Constitutional no acute distress - *Routine Respiratory Exam Absent: respiratory distress - *Routine Abdominal Exam Present: soft Progress Note: A&P (1) Colitis Status: Acute Assessment and plan: Continuing to slowly improve clinically. He states that he "feels even better this morning". Continue current therapy (antibiotics) Colonoscopy in relatively near future; however, no need for urgent evaluation if he continues to improve Current Visit: Yes (2) Proctitis Status: Acute Current Visit: Yes (3) Hypotension Status: Acute Current Visit: Yes (4) Type 2 diabetes mellitus Status: Acute Current Visit: Yes (5) ASCVD (arteriosclerotic cardiovascular disease) Status: Acute Current Visit: Yes (6) Dehydration Status: Acute Current Visit: Yes (7) Intractable diarrhea Status: Acute Current Visit: Yes (8) Hypokalemia Status: Acute Current Visit: Yes
--- NOTE | 2019-03-30 08:09 | Progress Note ---
<Evelyn Gallagher - Last Filed: 03/30/19 08:05> Internal Medicine - PN: Subj *Date: 03/30/19 *Time: 08:05 Interval history: Patient states he had a rough day yesterday. He vomited around 7 times. He tried to eat but was unable. He is still having diarrhea but there is no blood. He is having stomach upset when taking his medications. He was able to rest better last night. Exam Vital signs and Labs for Last 24 Hours: Temp Pulse Resp BP Pulse Ox 98.1 F 102 H 18 94/56 L 100 03/30/19 07:40 03/30/19 07:40 03/30/19 07:40 03/30/19 07:40 03/30/19 07:40 Laboratory Results - last 24 hr 03/29/19 10:36: POC Glucose 220 H 03/29/19 16:02: POC Glucose 116 H 03/29/19 20:34: POC Glucose 115 H I & O for Last 24 hours: Intake & Output 03/27/19 03/28/19 03/29/19 03/30/19 11:59 11:59 11:59 11:59 Intake Total 470 / 470 2324 / 2324 3440 / 3440 Output Total 121 / 121 850 / 850 Balance 349 / 349 1474 / 1474 3440 / 3440 Weight 172 lb 3.954 oz 172 lb 0.074 oz 171 lb 4 oz Microbiology Reports for the Last 24 Hours: Microbiology 03/27/19 15:30 Blood Blood Culture - Preliminary NO GROWTH AFTER 48 HOURS 03/27/19 15:30 Blood Blood Culture - Preliminary NO GROWTH AFTER 48 HOURS - Constitutional no acute distress - *Routine Respiratory Exam Present: CTA bilaterally - *Routine Cardiovascular Exam Present: RRR - *Routine Abdominal Exam Present: soft, normoactive bowel sounds. Absent: tenderness - *Routine Extremities Exam Absent: cyanosis, clubbing, edema - *Routine Skin Exam Present: warm. Absent: rash - *Routine Neurological Exam Present: alert, oriented X3 Assessment and Plan (1) Colitis Current visit: Yes Status: Acute Category: Medical Code(s): K52.9 - Noninfective gastroenteritis and colitis, unspecified (2) Proctitis Current visit: Yes Status: Acute Category: Medical Code(s): K62.89 - Other specified diseases of anus and rectum (3) Hypotension Current visit: Yes Status: Acute Category: Medical Code(s): I95.9 - Hypotension, unspecified (4) Type 2 diabetes mellitus Current visit: Yes Status: Acute Category: Medical Code(s): E11.9 - Type 2 diabetes mellitus without complications (5) ASCVD (arteriosclerotic cardiovascular disease) Current visit: Yes Status: Acute Category: Medical Code(s): I25.10 - Atherosclerotic heart disease of [place] coronary artery without angina pectoris (6) Dehydration Current visit: Yes Status: Acute Category: Medical Code(s): E86.0 - Dehydration (7) Intractable diarrhea Current visit: Yes Status: Acute Category: Medical Code(s): R19.7 - Diarrhea, unspecified (8) Hypokalemia Current visit: Yes Status: Acute Category: Medical Code(s): E87.6 - Hypokalemia - Assessment and plan all Dx Assessment and Plan for all problems:: We will continue antibiotics. Patient did not tolerate diet yesterday. We will see if he tolerates a diet today. <Cristobal Batista - Last Filed: 03/30/19 09:07> Internal Medicine - PN: Subj *Date: 03/30/19 *Time: 09:06 Exam Vital signs and Labs for Last 24 Hours: Temp Pulse Resp BP Pulse Ox 98.1 F 102 H 18 94/56 L 100 03/30/19 07:40 03/30/19 07:40 03/30/19 07:40 03/30/19 07:40 03/30/19 07:40 Laboratory Results - last 24 hr 03/29/19 10:36: POC Glucose 220 H 03/29/19 16:02: POC Glucose 116 H 03/29/19 20:34: POC Glucose 115 H I & O for Last 24 hours: Intake & Output 03/27/19 03/28/19 03/29/19 03/30/19 11:59 11:59 11:59 11:59 Intake Total 470 / 470 2324 / 2324 3800 / 3800 Output Total 121 / 121 850 / 850 400 / 400 Balance 349 / 349 1474 / 1474 3400 / 3400 Weight 172 lb 3.954 oz 172 lb 0.074 oz 171 lb 4 oz Microbiology Reports for the Last 24 Hours: Microbiology 03/27/19 15:30 Blood Blood Culture - Preliminary NO GROWTH AFTER 48 HOURS 03/27/19 15:30 Blood Blood Culture - Preliminary NO GROWTH AFTER 48 HOURS Assessment and Plan (1) Colitis Current visit: Yes Status: Acute Category: Medical Code(s): K52.9 - Noninfective gastroenteritis and colitis, unspecified (2) Proctitis Current visit: Yes Status: Acute Category: Medical Code(s): K62.89 - Other specified diseases of anus and rectum (3) Hypotension Current visit: Yes Status: Acute Category: Medical Code(s): I95.9 - Hypotension, unspecified (4) Type 2 diabetes mellitus Current visit: Yes Status: Acute Category: Medical Code(s): E11.9 - Type 2 diabetes mellitus without complications (5) ASCVD (arteriosclerotic cardiovascular disease) Current visit: Yes Status: Acute Category: Medical Code(s): I25.10 - Atherosclerotic heart disease of [place] coronary artery without angina pectoris (6) Dehydration Current visit: Yes Status: Acute Category: Medical Code(s): E86.0 - Dehydration (7) Intractable diarrhea Current visit: Yes Status: Acute Category: Medical Code(s): R19.7 - Diarrhea, unspecified (8) Hypokalemia Current visit: Yes Status: Acute Category: Medical Code(s): E87.6 - Hypokalemia - Assessment and plan all Dx Assessment and Plan for all problems:: Patient seen and examined. Concur with above. Note he refused Zofran several times yesterday. Encouraged him to use when needed.
[2019-03-31 06:31] LABS: Basophils # 0.1 K/mm3 (0-0.2); Basophils % 0.6 % (0.1-2.0); Eosinophils # 0.3 K/mm3 (0.0-0.4); Eosinophils % 2.7 % (0.1-12.0); Hemoglobin 11.5 g/dL (14.1-18.0); Lymphocytes # 1.3 K/mm3 (0.7-4.5); Mean Corpuscular HGB Conc 33.9 g/dL (31.8-35.4); Mean Platelet Volume 7.5 fl (7.4-10.4); Monocytes # 1.1 K/mm3 (0.1-1.0); Monocytes % 10.5 % (1.7-9.3); Neutrophils % 74.3 % (37.0-80.0); Platelet Count 364 K/mm3 (142-424); Red Blood Count 3.95 M/mm3 (4.60-6.20); White Blood Count 10.8 K/mm3 (4.8-10.8)
[2019-03-31 06:39] LABS: Calcium 7.4 mg/dl (8.4-10.2)
--- NOTE | 2019-03-31 08:06 | Progress Note ---
<Evelyn Gallagher - Last Filed: 03/31/19 08:03> Internal Medicine - PN: Subj *Date: 03/31/19 *Time: 08:03 Interval history: Patient states he has had no further vomiting. He did have a few more diarrheal stools yesterday but no blood. This morning he states he feels like he needs to pass a stool, but is unable. He is worried about an obstruction. He was unable to eat any solid foods but is drinking liquid. He slept better last night. Exam Vital signs and Labs for Last 24 Hours: Temp Pulse Resp BP Pulse Ox 98.4 F 99 H 18 112/62 100 03/31/19 04:28 03/31/19 04:28 03/31/19 04:28 03/31/19 04:28 03/31/19 04:28 Laboratory Results - last 24 hr 03/30/19 06:34: POC Glucose 117 H 03/30/19 11:05: POC Glucose 112 H 03/30/19 16:27: POC Glucose 78 03/30/19 21:17: POC Glucose 119 H 03/31/19 05:10: POC Glucose 108 03/31/19 06:23: Sodium 136, Potassium 3.0 L, Chloride 105, Carbon Dioxide 23, Anion Gap 11.0, BUN 2 L, Creatinine 0.70, Estimated Creat Clear 133, Estimated GFR 118, Est GFR ( Amer) 142, Glucose 82, Calcium 7.4 L I & O for Last 24 hours: Intake & Output 03/28/19 03/29/19 03/30/19 03/31/19 11:59 11:59 11:59 11:59 Intake Total 470 / 470 2324 / 2324 4050 / 4050 2733 / 2733 Output Total 121 / 121 850 / 850 400 / 400 300 / 300 Balance 349 / 349 1474 / 1474 3650 / 3650 2433 / 2433 Weight 172 lb 3.954 oz 172 lb 0.074 oz 171 lb 4 oz 172 lb - Constitutional no acute distress - *Routine Respiratory Exam Present: CTA bilaterally - *Routine Cardiovascular Exam Present: RRR - *Routine Abdominal Exam Present: soft, normoactive bowel sounds, tenderness (RLQ) - *Routine Extremities Exam Absent: cyanosis, clubbing, edema - *Routine Skin Exam Present: warm. Absent: rash - *Routine Neurological Exam Present: alert, oriented X3 Assessment and Plan (1) Colitis Current visit: Yes Status: Acute Category: Medical Code(s): K52.9 - Noninfective gastroenteritis and colitis, unspecified (2) Proctitis Current visit: Yes Status: Acute Category: Medical Code(s): K62.89 - Other specified diseases of anus and rectum (3) Hypotension Current visit: Yes Status: Acute Category: Medical Code(s): I95.9 - Hypotension, unspecified (4) Type 2 diabetes mellitus Current visit: Yes Status: Acute Category: Medical Code(s): E11.9 - Type 2 diabetes mellitus without complications (5) ASCVD (arteriosclerotic cardiovascular disease) Current visit: Yes Status: Acute Category: Medical Code(s): I25.10 - Atherosclerotic heart disease of [place] coronary artery without angina pectoris (6) Dehydration Current visit: Yes Status: Acute Category: Medical Code(s): E86.0 - Dehydration (7) Intractable diarrhea Current visit: Yes Status: Acute Category: Medical Code(s): R19.7 - Diarrhea, unspecified (8) Hypokalemia Current visit: Yes Status: Acute Category: Medical Code(s): E87.6 - Hypokalemia - Assessment and plan all Dx Assessment and Plan for all problems:: Will likely need more abdominal imaging today. Will discuss with Dr. Batista. Potassium is lower today. Will start on oral potassium supplementation. <Cristobal Batista - Last Filed: 03/31/19 12:29> Internal Medicine - PN: Subj *Date: 03/31/19 *Time: 12:25 Exam Vital signs and Labs for Last 24 Hours: Temp Pulse Resp BP Pulse Ox 98.2 F 96 H 16 98/61 L 95 03/31/19 08:00 03/31/19 08:00 03/31/19 08:00 03/31/19 08:00 03/31/19 08:00 Laboratory Results - last 24 hr 03/30/19 16:27: POC Glucose 78 03/30/19 21:17: POC Glucose 119 H 03/31/19 05:10: POC Glucose 108 03/31/19 06:23: WBC 10.8, RBC 3.95 L, Hgb 11.5 L, Hct 34.0 L, MCV 86.0, MCH 29.1, MCHC 33.9, RDW 14.0, Plt Count 364, MPV 7.5, Neut % (Auto) 74.3, Lymph % (Auto) 12.0, [place] % (Auto) 10.5 H, Eos % (Auto) 2.7, Baso % (Auto) 0.6, Neut # (Auto) 8.0 H, Lymph # (Auto) 1.3, [place] # (Auto) 1.1 H, Eos # (Auto) 0.3, Baso # (Auto) 0.1 03/31/19 06:23: Sodium 136, Potassium 3.0 L, Chloride 105, Carbon Dioxide 23, Anion Gap 11.0, BUN 2 L, Creatinine 0.70, Estimated Creat Clear 133, Estimated GFR 118, Est GFR ( Amer) 142, Glucose 82, Calcium 7.4 L 03/31/19 11:28: POC Glucose 126 H I & O for Last 24 hours: Intake & Output 03/29/19 03/30/19 03/31/19 04/01/19 11:59 11:59 11:59 11:59 Intake Total 2324 / 2324 4050 / 4050 2853 / 2853 Output Total 850 / 850 400 / 400 300 / 300 Balance 1474 / 1474 3650 / 3650 2553 / 2553 Weight 172 lb 0.074 oz 171 lb 4 oz 172 lb Assessment and Plan (1) Colitis Current visit: Yes Status: Acute Category: Medical Code(s): K52.9 - Noninfective gastroenteritis and colitis, unspecified (2) Proctitis Current visit: Yes Status: Acute Category: Medical Code(s): K62.89 - Other specified diseases of anus and rectum (3) Hypotension Current visit: Yes Status: Acute Category: Medical Code(s): I95.9 - Hypotension, unspecified (4) Type 2 diabetes mellitus Current visit: Yes Status: Acute Category: Medical Code(s): E11.9 - Type 2 diabetes mellitus without complications (5) ASCVD (arteriosclerotic cardiovascular disease) Current visit: Yes Status: Acute Category: Medical Code(s): I25.10 - Atherosclerotic heart disease of [place] coronary artery without angina pectoris (6) Dehydration Current visit: Yes Status: Acute Category: Medical Code(s): E86.0 - Dehydration (7) Hypokalemia Current visit: Yes Status: Acute Category: Medical Code(s): E87.6 - Hypokalemia - Assessment and plan all Dx Assessment and Plan for all problems:: States he can not "stomach" his medication or solid foods. He is tolerating some fluids. No abdominal pain or vomiting. He is having frequent urge to defecate but stool frequency has decreased and occasionally has some form. Will add additional KCl supplement and repeat CT scan with contrast.
--- NOTE | 2019-03-31 08:59 | Progress Note ---
Internal Medicine - PN: Subj *Date: 03/31/19 *Time: 08:59 Exam Vital signs and Labs for Last 24 Hours: Temp Pulse Resp BP Pulse Ox 98.2 F 96 H 16 98/61 L 95 03/31/19 08:00 03/31/19 08:00 03/31/19 08:00 03/31/19 08:00 03/31/19 08:00 Laboratory Results - last 24 hr 03/30/19 06:34: POC Glucose 117 H 03/30/19 11:05: POC Glucose 112 H 03/30/19 16:27: POC Glucose 78 03/30/19 21:17: POC Glucose 119 H 03/31/19 05:10: POC Glucose 108 03/31/19 06:23: Sodium 136, Potassium 3.0 L, Chloride 105, Carbon Dioxide 23, Anion Gap 11.0, BUN 2 L, Creatinine 0.70, Estimated Creat Clear 133, Estimated GFR 118, Est GFR ( Amer) 142, Glucose 82, Calcium 7.4 L I & O for Last 24 hours: Intake & Output 03/28/19 03/29/19 03/30/19 03/31/19 23:59 23:59 23:59 23:59 Intake Total 1180 / 1180 3554 / 3554 2310 / 2310 2653 / 2653 Output Total 571 / 971 400 / 400 700 / 700 Balance 609 / 209 3154 / 3154 1610 / 1610 2653 / 2653 Weight 78.13 kg 78 kg 77.678 kg 78.018 kg Assessment and Plan (1) Colitis Current visit: Yes Status: Acute Category: Medical Code(s): K52.9 - Noninfective gastroenteritis and colitis, unspecified (2) Proctitis Current visit: Yes Status: Acute Category: Medical Code(s): K62.89 - Other specified diseases of anus and rectum (3) Hypotension Current visit: Yes Status: Acute Category: Medical Code(s): I95.9 - Hypotension, unspecified (4) Type 2 diabetes mellitus Current visit: Yes Status: Acute Category: Medical Code(s): E11.9 - Type 2 diabetes mellitus without complications (5) ASCVD (arteriosclerotic cardiovascular disease) Current visit: Yes Status: Acute Category: Medical Code(s): I25.10 - Atherosclerotic heart disease of [place] coronary artery without angina pectoris (6) Dehydration Current visit: Yes Status: Acute Category: Medical Code(s): E86.0 - Dehydration (7) Intractable diarrhea Current visit: Yes Status: Acute Category: Medical Code(s): R19.7 - Diarrhea, unspecified (8) Hypokalemia Current visit: Yes Status: Acute Category: Medical Code(s): E87.6 - Hypokalemia The patient's infection will respond to the chosen ABx?: Yes Is the patient receiving the right drug, dose, and route?: Yes Could a more targeted ABx be ordered?: No (STILL WITH DIARRHEA, UNABLE TO EAT, CONT ABX.)
--- NOTE | 2019-03-31 09:03 | Progress Note ---
Subjective Narrative: Patient complains of the sensation of incomplete defecation. Denies appreciable abdominal pain. Has tolerated liquids. Exam Vital signs and Labs for Last 24 Hours: Temp Pulse Resp BP Pulse Ox 98.2 F 96 H 16 98/61 L 95 03/31/19 08:00 03/31/19 08:00 03/31/19 08:00 03/31/19 08:00 03/31/19 08:00 Laboratory Results - last 24 hr 03/30/19 06:34: POC Glucose 117 H 03/30/19 11:05: POC Glucose 112 H 03/30/19 16:27: POC Glucose 78 03/30/19 21:17: POC Glucose 119 H 03/31/19 05:10: POC Glucose 108 03/31/19 06:23: Sodium 136, Potassium 3.0 L, Chloride 105, Carbon Dioxide 23, Anion Gap 11.0, BUN 2 L, Creatinine 0.70, Estimated Creat Clear 133, Estimated GFR 118, Est GFR ( Amer) 142, Glucose 82, Calcium 7.4 L I & O for Last 24 hours: Intake & Output 03/28/19 03/29/19 03/30/19 03/31/19 11:59 11:59 11:59 11:59 Intake Total 470 / 470 2324 / 2324 4050 / 4050 2853 / 2853 Output Total 121 / 121 850 / 850 400 / 400 300 / 300 Balance 349 / 349 1474 / 1474 3650 / 3650 2553 / 2553 Weight 172 lb 3.954 oz 172 lb 0.074 oz 171 lb 4 oz 172 lb - *Routine Abdominal Exam Present: soft Progress Note: A&P (1) Colitis Status: Acute Current Visit: Yes (2) Proctitis Status: Acute Current Visit: Yes (3) Hypotension Status: Acute Current Visit: Yes (4) Type 2 diabetes mellitus Status: Acute Current Visit: Yes (5) ASCVD (arteriosclerotic cardiovascular disease) Status: Acute Current Visit: Yes (6) Dehydration Status: Acute Current Visit: Yes (7) Intractable diarrhea Status: Acute Current Visit: Yes (8) Hypokalemia Status: Acute Current Visit: Yes Assessment and Plan for All Diagnoses:: Agree with follow-up CT scan with oral contrast as well as IV as this will help assess interval change advisor the past 4 days. No indications for surgical intervention at this time.
--- NOTE | 2019-03-31 15:54 | Progress Note ---
Subjective Narrative: Patient seen this afternoon after his CT scan. When asked how he is doing he states "I am here". He has had some loose nonbloody bowel movements. Exam Vital signs and Labs for Last 24 Hours: Temp Pulse Resp BP Pulse Ox 98.2 F 96 H 16 98/61 L 95 03/31/19 08:00 03/31/19 08:00 03/31/19 08:00 03/31/19 08:00 03/31/19 08:00 Laboratory Results - last 24 hr 03/30/19 16:27: POC Glucose 78 03/30/19 21:17: POC Glucose 119 H 03/31/19 05:10: POC Glucose 108 03/31/19 06:23: WBC 10.8, RBC 3.95 L, Hgb 11.5 L, Hct 34.0 L, MCV 86.0, MCH 29.1, MCHC 33.9, RDW 14.0, Plt Count 364, MPV 7.5, Neut % (Auto) 74.3, Lymph % (Auto) 12.0, [place] % (Auto) 10.5 H, Eos % (Auto) 2.7, Baso % (Auto) 0.6, Neut # (Auto) 8.0 H, Lymph # (Auto) 1.3, [place] # (Auto) 1.1 H, Eos # (Auto) 0.3, Baso # (Auto) 0.1 03/31/19 06:23: Sodium 136, Potassium 3.0 L, Chloride 105, Carbon Dioxide 23, Anion Gap 11.0, BUN 2 L, Creatinine 0.70, Estimated Creat Clear 133, Estimated GFR 118, Est GFR ( Amer) 142, Glucose 82, Calcium 7.4 L 03/31/19 11:28: POC Glucose 126 H I & O for Last 24 hours: Intake & Output 03/29/19 03/30/19 03/31/19 04/01/19 11:59 11:59 11:59 11:59 Intake Total 2324 / 2324 4050 / 4050 2953 / 2953 120 / 120 Output Total 850 / 850 400 / 400 300 / 300 Balance 1474 / 1474 3650 / 3650 2653 / 2653 120 / 120 Weight 172 lb 0.074 oz 171 lb 4 oz 172 lb - *Routine Abdominal Exam Comments: His abdomen is soft with some mild subjective tenderness in the right lower q uadrant without guarding or rebound. Progress Note: A&P (1) Colitis Status: Acute Current Visit: Yes (2) Proctitis Status: Acute Current Visit: Yes (3) Hypotension Status: Acute Current Visit: Yes (4) Type 2 diabetes mellitus Status: Acute Current Visit: Yes (5) ASCVD (arteriosclerotic cardiovascular disease) Status: Acute Current Visit: Yes (6) Dehydration Status: Acute Current Visit: Yes (7) Hypokalemia Status: Acute Current Visit: Yes Assessment and Plan for All Diagnoses:: I reviewed his CT scan images and then reviewed these with the radiologist. He does have persistent thickening of the wall with edema of the left colon from the splenic flexure to the rectum. I had noted some concern about the cecum on the imaging. When discussed with the radiologist there were findings of possible cecal pneumatosis coli. However, this seems rather unlikely given the marked anatomic distance between this and the thickening of the colon on the left. Also, there is no evidence of any thickening of the wall in the cecum. Also, clinically the patient seems to be slowly improving. Of note there is no evidence of any obstruction on the CT imaging. The mesenteric vessels including celiac, superior mesenteric artery, and inferior mesenteric artery appear to be patent on CT scan. At this time plan will be for very close monitoring with ongoing medical management and nonoperative management of diffuse left-sided colitis of uncertain etiology. I will slowly advance him to a full liquid diet.
[2019-04-01 07:22] LABS: Albumin Level 2.2 g/dl (3.5-5.0); Albumin/Globulin Ratio 0.8 (1.1-1.8); Anion Gap 11.4 mEq/L (5-15); Bilirubin,Total 0.3 mg/dl (0.2-1.3); Globulin 2.7 g/dL (1.3-3.2); Total Protein,Serum 4.9 g/dl (6.3-8.2)
[2019-04-01 07:23] LABS: Calcium 7.2 mg/dl (8.4-10.2)
[2019-04-01 07:33] LABS: Basophils # 0.1 K/mm3 (0-0.2); Basophils % 0.4 % (0.1-2.0); Eosinophils # 0.1 K/mm3 (0.0-0.4); Eosinophils % 0.8 % (0.1-12.0); Hematocrit 32.7 % (42.0-52.0); Hemoglobin 10.9 g/dL (14.1-18.0); Lymphocytes # 0.9 K/mm3 (0.7-4.5); Lymphocytes % 8.8 % (10-50); Mean Corpuscular HGB Conc 33.4 g/dL (31.8-35.4); Mean Corpuscular Volume 86.3 fl (80-94); Mean Platelet Volume 7.8 fl (7.4-10.4); Monocytes # 0.9 K/mm3 (0.1-1.0); Monocytes % 8.6 % (1.7-9.3); Neutrophils # 8.7 K/mm3 (1.8-7.8); Neutrophils % 81.4 % (37.0-80.0); Platelet Count 350 K/mm3 (142-424); Red Blood Count 3.79 M/mm3 (4.60-6.20); White Blood Count 10.7 K/mm3 (4.8-10.8)
--- NOTE | 2019-04-01 08:04 | Progress Note ---
Internal Medicine - PN: Subj *Date: 04/01/19 *Time: 08:22 Interval history: States he had a rough night. Having frequent, small BMs, mostly mucous. One episode of vomiting. Denies abdominal pain. Refusing po meds and diet. Exam Vital signs and Labs for Last 24 Hours: Temp Pulse Resp BP Pulse Ox 100.3 F H 110 H 18 93/57 L 96 04/01/19 04:00 04/01/19 04:00 04/01/19 04:00 04/01/19 04:00 04/01/19 04:00 Laboratory Results - last 24 hr 03/31/19 06:23: WBC 10.8, RBC 3.95 L, Hgb 11.5 L, Hct 34.0 L, MCV 86.0, MCH 29.1, MCHC 33.9, RDW 14.0, Plt Count 364, MPV 7.5, Neut % (Auto) 74.3, Lymph % (Auto) 12.0, [place] % (Auto) 10.5 H, Eos % (Auto) 2.7, Baso % (Auto) 0.6, Neut # (Auto) 8.0 H, Lymph # (Auto) 1.3, [place] # (Auto) 1.1 H, Eos # (Auto) 0.3, Baso # (Auto) 0.1 03/31/19 11:28: POC Glucose 126 H 03/31/19 16:38: POC Glucose 102 03/31/19 20:43: POC Glucose 112 H 04/01/19 06:05: POC Glucose 127 H 04/01/19 06:44: WBC 10.7, RBC 3.79 L, Hgb 10.9 L, Hct 32.7 L, MCV 86.3, MCH 28.8, MCHC 33.4, RDW 14.0, Plt Count 350, MPV 7.8, Neut % (Auto) 81.4 H, Lymph % (Auto) 8.8 L, [place] % (Auto) 8.6, Eos % (Auto) 0.8, Baso % (Auto) 0.4, Neut # (Auto) 8.7 H, Lymph # (Auto) 0.9, [place] # (Auto) 0.9, Eos # (Auto) 0.1, Baso # (Auto) 0.1 04/01/19 06:44: Lactate 1.0 04/01/19 06:44: Sodium 134 L, Potassium 3.4 L, Chloride 104, Carbon Dioxide 22, Anion Gap 11.4, BUN 3 L D, Creatinine 0.60 L, Estimated Creat Clear 156, Estimated GFR 140, Est GFR ( Amer) 170, Glucose 109 H, Calcium 7.2 L, Tot al Bilirubin 0.3, AST 25, ALT 10 L, Alkaline Phosphatase 45, Total Protein 4.9 L , Albumin 2.2 L, Globulin 2.7, Albumin/Globulin Ratio 0.8 L I & O for Last 24 hours: Intake & Output 03/29/19 03/30/19 03/31/19 04/01/19 11:59 11:59 11:59 11:59 Intake Total 2324 / 2324 4050 / 4050 3103 / 3103 3537 / 3537 Output Total 850 / 850 400 / 400 300 / 300 Balance 1474 / 1474 3650 / 3650 2803 / 2803 3537 / 3537 Weight 172 lb 0.074 oz 171 lb 4 oz 172 lb 172 lb 6.424 oz Narrative: He is aroused from sleep. Appears in no acute distress. Somewhat stoic. Lungs are clear. Abdomen is soft and nondistended. Minimal right lower quadrant tenderness. Assessment and Plan (1) Colitis Current visit: Yes Status: Acute Category: Medical Code(s): K52.9 - Noninfective gastroenteritis and colitis, unspecified (2) Proctitis Current visit: Yes Status: Acute Category: Medical Code(s): K62.89 - Other specified diseases of anus and rectum (3) Hypotension Current visit: Yes Status: Acute Category: Medical Code(s): I95.9 - Hypotension, unspecified (4) Type 2 diabetes mellitus Current visit: Yes Status: Acute Category: Medical Code(s): E11.9 - Type 2 diabetes mellitus without complications (5) ASCVD (arteriosclerotic cardiovascular disease) Current visit: Yes Status: Acute Category: Medical Code(s): I25.10 - Atherosclerotic heart disease of [place] coronary artery without angina pectoris (6) Dehydration Current visit: Yes Status: Acute Category: Medical Code(s): E86.0 - Dehydration (7) Hypokalemia Current visit: Yes Status: Acute Category: Medical Code(s): E87.6 - Hypokalemia - Assessment and plan all Dx Assessment and Plan for all problems:: CT scan reviewed and noted comments from Dr. Summers yesterday. Continue antibiotics for now.. He will need source of nutrition soon. GI consult for Wednesday.
--- NOTE | 2019-04-01 13:33 | Progress Note ---
Subjective Narrative: Patient states that he had a "rough night". He had numerous episodes of diarrhea fecal urgency. He did note mucus. Denies any blood. He denies any abdominal pain. He did have an episode of vomiting and has been reluctant to take full liquids for this reason. Exam Vital signs and Labs for Last 24 Hours: Temp Pulse Resp BP Pulse Ox 98.2 F 97 H 12 105/63 L 97 04/01/19 08:00 04/01/19 08:27 04/01/19 08:27 04/01/19 08:00 04/01/19 08:27 Laboratory Results - last 24 hr 03/31/19 16:38: POC Glucose 102 03/31/19 20:43: POC Glucose 112 H 04/01/19 06:05: POC Glucose 127 H 04/01/19 06:44: WBC 10.7, RBC 3.79 L, Hgb 10.9 L, Hct 32.7 L, MCV 86.3, MCH 28.8, MCHC 33.4, RDW 14.0, Plt Count 350, MPV 7.8, Neut % (Auto) 81.4 H, Lymph % (Auto) 8.8 L, [place] % (Auto) 8.6, Eos % (Auto) 0.8, Baso % (Auto) 0.4, Neut # (Auto) 8.7 H, Lymph # (Auto) 0.9, [place] # (Auto) 0.9, Eos # (Auto) 0.1, Baso # (Auto) 0.1 04/01/19 06:44: Lactate 1.0 04/01/19 06:44: Sodium 134 L, Potassium 3.4 L, Chloride 104, Carbon Dioxide 22, Anion Gap 11.4, BUN 3 L D, Creatinine 0.60 L, Estimated Creat Clear 156, Estimated GFR 140, Est GFR ( Amer) 170, Glucose 109 H, Calcium 7.2 L, Total Bilirubin 0.3, AST 25, ALT 10 L, Alkaline Phosphatase 45, Total Protein 4.9 L, Albumin 2.2 L, Globulin 2.7, Albumin/Globulin Ratio 0.8 L 04/01/19 11:43: POC Glucose 108 I & O for Last 24 hours: Intake & Output 03/30/19 03/31/19 04/01/19 04/02/19 11:59 11:59 11:59 11:59 Intake Total 4050 / 4050 3103 / 3103 3897 / 3897 Output Total 400 / 400 300 / 300 Balance 3650 / 3650 2803 / 2803 3897 / 3897 Weight 171 lb 4 oz 172 lb 172 lb 6.424 oz - *Routine Abdominal Exam Present: soft. Absent: tenderness Progress Note: A&P (1) Colitis Status: Acute Current Visit: Yes (2) Proctitis Status: Acute Current Visit: Yes (3) Hypotension Status: Acute Current Visit: Yes (4) Type 2 diabetes mellitus Status: Acute Current Visit: Yes (5) ASCVD (arteriosclerotic cardiovascular disease) Status: Acute Current Visit: Yes (6) Dehydration Status: Acute Current Visit: Yes (7) Hypokalemia Status: Acute Current Visit: Yes Assessment and Plan for All Diagnoses:: His colitis of uncertain etiology has shown minimal clinical or radiographic i mprovement. Of note, blood work today including lactate and CBC are unremarkable. Agree with gastroenterology evaluation. Plan for n.p.o. after midnight tomorrow night in case sigmoidoscopy is felt necessary. His progressive fecal urgency may be secondary to water-soluble contrast taken for his CT scan of the abdomen and pelvis yesterday. This does seem to be improving this morning.
--- NOTE | 2019-04-02 08:04 | Progress Note ---
Internal Medicine - PN: Subj *Date: 04/02/19 *Time: 08:57 Interval history: He again states he had a rough night. By this is he means he has continued urge to defecate but is having only very small amounts of stool and mucus. He still states he cannot eat but denies nausea, dysphagia, or vomiting. Exam Vital signs and Labs for Last 24 Hours: Temp Pulse Resp BP Pulse Ox 97.8 F 94 H 16 102/66 L 98 04/02/19 07:40 04/02/19 07:40 04/02/19 07:40 04/02/19 07:40 04/02/19 07:40 Laboratory Results - last 24 hr 04/01/19 11:43: POC Glucose 108 04/01/19 16:30: POC Glucose 145 H 04/01/19 20:45: POC Glucose 130 H 04/02/19 06:06: POC Glucose 139 H I & O for Last 24 hours: Intake & Output 03/30/19 03/31/19 04/01/19 04/02/19 11:59 11:59 11:59 11:59 Intake Total 4050 / 4050 3103 / 3103 4147 / 4147 2130 / 2130 Output Total 400 / 400 300 / 300 Balance 3650 / 3650 2803 / 2803 4147 / 4147 2130 / 2130 Weight 171 lb 4 oz 172 lb 172 lb 6.424 oz 172 lb 6.424 oz Microbiology Reports for the Last 24 Hours: Microbiology 03/27/19 15:30 Blood Blood Culture - Final NO GROWTH AFTER 5 DAYS 03/27/19 15:30 Blood Blood Culture - Final NO GROWTH AFTER 5 DAYS Assessment and Plan (1) Colitis Current visit: Yes Status: Acute Category: Medical Code(s): K52.9 - Noninfective gastroenteritis and colitis, unspecified (2) Proctitis Current visit: Yes Status: Acute Category: Medical Code(s): K62.89 - Other specified diseases of anus and rectum (3) Hypotension Current visit: Yes Status: Acute Category: Medical Code(s): I95.9 - Hypotension, unspecified (4) Type 2 diabetes mellitus Current visit: Yes Status: Acute Category: Medical Code(s): E11.9 - Type 2 diabetes mellitus without complications (5) ASCVD (arteriosclerotic cardiovascular disease) Current visit: Yes Status: Acute Category: Medical Code(s): I25.10 - Atherosclerotic heart disease of [place] coronary artery without angina pectoris (6) Dehydration Current visit: Yes Status: Acute Category: Medical Code(s): E86.0 - Dehydration (7) Hypokalemia Current visit: Yes Status: Acute Category: Medical Code(s): E87.6 - Hypokalemia - Assessment and plan all Dx Assessment and Plan for all problems:: He has shown minimal response with adequate antibiotic therapy. His white count has remained normal and he has been afebrile. This raises the question of inflammatory bowel disease as the etiology of his symptoms. He is scheduled for GI consultation tomorrow with Dr. Mcdaniels and will be made n.p.o. after midnight tonight for possible endoscopy. His inability and/or unwillingness to take anything by mouth is puzzling as he denies nausea, dysphagia, or pain with eating.
--- NOTE | 2019-04-02 08:10 | Progress Note ---
Subjective Narrative: Patient states that he had another "rough night". When asked specifically the etiology of this "rough night" he is somewhat unable to give specifics. He denies any abdominal pain, denies nausea and any additional vomiting. He states he has had some diarrhea and urgency. Exam Vital signs and Labs for Last 24 Hours: Temp Pulse Resp BP Pulse Ox 97.8 F 94 H 16 102/66 L 98 04/02/19 07:40 04/02/19 07:40 04/02/19 07:40 04/02/19 07:40 04/02/19 07:40 Laboratory Results - last 24 hr 04/01/19 11:43: POC Glucose 108 04/01/19 16:30: POC Glucose 145 H 04/01/19 20:45: POC Glucose 130 H 04/02/19 06:06: POC Glucose 139 H I & O for Last 24 hours: Intake & Output 03/30/19 03/31/19 04/01/19 04/02/19 11:59 11:59 11:59 11:59 Intake Total 4050 / 4050 3103 / 3103 4147 / 4147 2130 / 2130 Output Total 400 / 400 300 / 300 Balance 3650 / 3650 2803 / 2803 4147 / 4147 2130 / 2130 Weight 171 lb 4 oz 172 lb 172 lb 6.424 oz 172 lb 6.424 oz Microbiology Reports for the Last 24 Hours: Microbiology 03/27/19 15:30 Blood Blood Culture - Final NO GROWTH AFTER 5 DAYS 03/27/19 15:30 Blood Blood Culture - Final NO GROWTH AFTER 5 DAYS - *Routine Abdominal Exam Present: soft. Absent: tenderness Progress Note: A&P (1) Colitis Status: Acute Current Visit: Yes (2) Proctitis Status: Acute Current Visit: Yes (3) Hypotension Status: Acute Current Visit: Yes (4) Type 2 diabetes mellitus Status: Acute Current Visit: Yes (5) ASCVD (arteriosclerotic cardiovascular disease) Status: Acute Current Visit: Yes (6) Dehydration Status: Acute Current Visit: Yes (7) Hypokalemia Status: Acute Current Visit: Yes Assessment and Plan for All Diagnoses:: Patient has shown minimal subjective improvement in his symptoms of colitis. Gastroenterology consultation is planned for tomorrow. I will make the patient n.p.o. after midnight in case sigmoidoscopy is entertained for more definitive investigation into the etiology of his colitis.
--- NOTE | 2019-04-03 08:20 | Progress Note ---
<Arin Alejandra - Last Filed: 04/03/19 08:16> Internal Medicine - PN: Subj *Date: 04/03/19 *Time: 08:16 Interval history: Patient had a terrible night last night. He did not sleep. He was up several times to the bedside commode with liquid, mucousy, bloody stools. He has had several episodes of severe abdominal cramping requiring the position. He took a few sips of water yesterday and has been n.p.o. for GI consult today. He had no further vomiting or nausea. He denies chest pain and shortness of breath. He describes difficulty with swallowing pills. He denies sore throat and feels his throat is just dry. Nursing notes reviewed. He is is to be seen by gastroenterology today. He continues with IV fluids. Exam Vital signs and Labs for Last 24 Hours: Temp Pulse Resp BP Pulse Ox 98.6 F 101 H 14 100/64 L 97 04/03/19 04:00 04/03/19 04:00 04/03/19 04:00 04/03/19 04:00 04/03/19 04:00 Laboratory Results - last 24 hr 04/02/19 10:47: POC Glucose 146 H 04/02/19 16:22: POC Glucose 101 04/02/19 20:47: POC Glucose 121 H 04/03/19 05:23: POC Glucose 139 H I & O for Last 24 hours: Intake & Output 03/31/19 04/01/19 04/02/19 04/03/19 11:59 11:59 11:59 11:59 Intake Total 3103 / 3103 4147 / 4147 2380 / 2380 4182 / 4182 Output Total 300 / 300 600 / 600 Balance 2803 / 2803 4147 / 4147 2380 / 2380 3582 / 3582 Weight 172 lb 172 lb 6.424 oz 172 lb 6.424 oz 172 lb 6.424 oz - Constitutional no acute distress - *Routine Neck Exam Present: supple. Absent: lymphadenopathy, thyromegaly, tenderness - *Routine Respiratory Exam Present: CTA bilaterally - *Routine Cardiovascular Exam Present: RRR - *Routine Abdominal Exam Present: soft, normoactive bowel sounds. Absent: tenderness, distended - *Routine Extremities Exam Present: edema (Trace in lower legs) - *Routine Neurological Exam Present: alert, oriented X3 Assessment and Plan (1) Colitis Current visit: Yes Status: Acute Category: Medical Code(s): K52.9 - Noninfective gastroenteritis and colitis, unspecified (2) Proctitis Current visit: Yes Status: Acute Category: Medical Code(s): K62.89 - Other specified diseases of anus and rectum (3) Hypotension Current visit: Yes Status: Acute Category: Medical Code(s): I95.9 - Hypotension, unspecified (4) Type 2 diabetes mellitus Current visit: Yes Status: Acute Category: Medical Code(s): E11.9 - Type 2 diabetes mellitus without complications (5) ASCVD (arteriosclerotic cardiovascular disease) Current visit: Yes Status: Acute Category: Medical Code(s): I25.10 - Atherosclerotic heart disease of [place] coronary artery without angina pectoris (6) Dehydration Current visit: Yes Status: Acute Category: Medical Code(s): E86.0 - Dehydration (7) Hypokalemia Current visit: Yes Status: Acute Category: Medical Code(s): E87.6 - Hypokalemia - Assessment and plan all Dx Assessment and Plan for all problems:: We will give 2 more rounds of potassium IV today. We will obtain labs after this. Continue with IV fluids and antibiotics. Gastroenterology to see patient today. <Cristobal Batista - Last Filed: 04/03/19 17:18> Internal Medicine - PN: Subj *Date: 04/03/19 *Time: 17:17 Interval history: Patient seen and examined. Concur with above Exam Vital signs and Labs for Last 24 Hours: Temp Pulse Resp BP Pulse Ox 99.9 F H 90 16 115/71 96 04/03/19 13:57 04/03/19 15:10 04/03/19 15:10 04/03/19 15:10 04/03/19 15:10 Laboratory Results - last 24 hr 04/02/19 20:47: POC Glucose 121 H 04/03/19 05:23: POC Glucose 139 H 04/03/19 11:07: POC Glucose 109 04/03/19 16:07: Sodium 134 L, Potassium 4.5 D, Chloride 102, Carbon Dioxide 23, Anion Gap 13.5, BUN 4 L D, Creatinine 0.60 L, Estimated Creat Clear 156, Estimated GFR 140, Est GFR ( Amer) 170, Glucose 102 H, Calcium 7.5 L 04/03/19 16:07: ESR > 140 H 04/03/19 16:07: C-Reactive Protein 178.8 H 04/03/19 17:00: POC Glucose 104 I & O for Last 24 hours: Intake & Output 04/01/19 04/02/19 04/03/19 04/04/19 11:59 11:59 11:59 11:59 Intake Total 4147 / 4147 2380 / 2380 4522.833 / 4522.833 0 / 0 Output Total 601 / 601 Balance 4147 / 4147 2380 / 2380 3921.833 / 3921.833 0 / 0 Weight 172 lb 6.424 oz 172 lb 6.424 oz 172 lb 6.424 oz Assessment and Plan (1) Colitis Current visit: Yes Status: Acute Category: Medical Code(s): K52.9 - Noninfective gastroenteritis and colitis, unspecified (2) Proctitis Current visit: Yes Status: Acute Category: Medical Code(s): K62.89 - Other specified diseases of anus and rectum (3) Hypotension Current visit: Yes Status: Acute Category: Medical Code(s): I95.9 - Hypotension, unspecified (4) Type 2 diabetes mellitus Current visit: Yes Status: Acute Category: Medical Code(s): E11.9 - Type 2 diabetes mellitus without complications (5) ASCVD (arteriosclerotic cardiovascular disease) Current visit: Yes Status: Acute Category: Medical Code(s): I25.10 - Atherosclerotic heart disease of [place] coronary artery without angina pectoris (6) Dehydration Current visit: Yes Status: Acute Category: Medical Code(s): E86.0 - Dehydration (7) Hypokalemia Current visit: Yes Status: Acute Category: Medical Code(s): E87.6 - Hypokalemia
--- NOTE | 2019-04-03 13:54 | Progress Note ---
[facility] Anesthesia Checklist - Patient Identification Patient Identification: Arm Band - Structural Data Admitted From: Inpatient Planned Operative Procedure/s: flexible sigmoidoscopy Consent for Planned Operative Procedure(s) Verified: Yes Verified Documents: Surgical Consent, History and Physical - NPO Status Verified Time NPO: 00:00 - Additional verifications Anesthesia Reactions: No - Airway Assessment C-Spine Mobility Assessed: Yes (mp2) TMJ Mobility Assessed: Yes Dentition: Edentulous - Neurological Assessment Level of Consciousness: Awake, Alert - Anesthesia Plan Anesthesia Risk discussed: Yes Anesthesia Plan: Verified ASA Class: III Anesthesia Type: MAC [facility] History I have reviewed the patient's past medical history: Yes Medical History: Reports:: Coronary Artery Disease, Diabetes Mellitus Type 2, Hyperlipidemia, Hypertension, Myocardial Infarction (10 YEARS AGO) Denies:: Diabetes Mellitus Type 1 *Have you ever received a pneumonia vaccine?: No *Have you received a flu vaccine this season?: Yes Anesthesia experience/problems:: nac Other Surgeries: Yes: Cardiac Catheterization, Coronary Stent - *Social History Educational Level: Completed High School Smoking Status: Former smoker Tobacco Type: cigarettes # Packs/Day (cigarettes): 1 #Yrs smoked (if former smoker): 18 Alcohol Intake: never Substance Use Type: denies use *Occupational Status:: employed Housing: house Household Members: spouse, children *Travel in the last 8 weeks: None Family Hx:: Diabetes, Heart Attack
--- NOTE | 2019-04-03 13:56 | Procedure Note ---
[facility] Procedure Note Procedure Note:: Colonoscopy procedure Report: Colonoscopy to the hepatic flexure with cold biopsies Endoscopist: Savage Mcdaniels II, MD Referring physician: Humza Batista MD Date of Procedure: April 03, 2019 Equipment: Olympus 180 variable stiffness pediatric colonoscope Sedation: MAC sedation Indication: Mr. Fountain is a 53-year-old gentleman who is hospitalized with diarrhea, lower abdominal pressure and weight loss. The patient does report some rectal bleeding as well. His CAT scan did show proctocolitis from the level of the splenic flexure distal. His labs did show hemoglobin 12.8 and hematocrit 38.1 on March 27. These did decline down to 10.9 and 32.7 on April 01. The patient's PCR gastrointestinal panel was negative for microbial pathogens. The patient has not had any prior colonoscopy. He reports no family history of colitis, Crohn's disease or colon cancer. Procedure: Prior to the procedure, a history and physical exam was performed, and patient's medications and allergies were reviewed. The risks, benefits and alternatives of the sedation and procedure were discussed with the patient. All questions were answered and informed consent was obtained. The patient was brought to the procedure room. Patient identification and proposed procedure were verified by the physician and the nurse. The patient was placed in a left lateral decubitus position and the scope was passed under direct vision. Throughout the procedure, the patient's blood pressure, pulse, and oxygen saturations were monitored continuously. The colonoscopy was accomplished without difficulty. The patient tolerated the procedure well. Findings: On digital rectal examination there was normal rectal tone. There were no external hemorrhoids. There were no fistulas or fissures. The colonoscope was then introduced through the anal canal into the rectum and advanced to the hepatic flexure. There was some brown liquid stool at the hepatic flexure in the ascending colon and transverse. Starting at near the splenic flexure and the descending colon was moderate to severely active colitis with mucosal edema, erythema, loss of vascular pattern, granularity with spontaneous bleeding. There was also ulceration/erosion and the colitis with circumferential and from the splenic flexure all the way to the pectinate line/anus. This was consistent with moderate to severe left-sided ulcerative colitis. Multiple cold biopsies were taken. There were no pseudomembranes. Impression: 1. Moderate to severe left-sided ulcerative colitis (from splenic flexure to anal verge) Plan: I will follow-up the biopsies and send labs to include CRP, sed rate, iron studies and IBD panel. I suspect a positive p-ANCA. I am going to initiate corticosteroids with initial hydrocortisone (100 mg IV every 8 hours) or Solu-Medrol (60 mg IV every 8 hours). I would transition to oral prednisone 60 mg x 7 days, 50 mg x 7 days, 40 mg x 7 days, etc. If the biopsies and p-ANCA are most consistent with severe acute/chronic ulcerative colitis/IBD, I would favor initiation of a good biologic as induction and ma intenance of remission therapy. I would take a top down (rather than step up) approach because of the severity of this colitis. I will have him follow-up in the office within a couple of weeks.
[2019-04-03 16:30] LABS: Anion Gap 13.5 mEq/L (5-15); Calcium 7.5 mg/dl (8.4-10.2)
[2019-04-03 16:35] LABS: C-Reactive Protein 178.8 mg/L (0-4)
--- NOTE | 2019-04-04 08:29 | Progress Note ---
<Arin Alejandra - Last Filed: 04/04/19 08:26> Internal Medicine - PN: Subj *Date: 04/04/19 *Time: 08:26 Interval history: Patient feels better this a.m. He actually slept some during the night. He had only a brief episode of severe abdominal pain. describes a normal stool. He was up to the bathroom less frequently last night. He was able to eat some dinner last night without any nausea or vomiting. He says swallowing is normal today. He is actually eating eggs this morning and enjoying. Patient had colonoscopy yesterday per Dr. Mcdaniels with findings of moderate to severe left-sided ulcerative colitis from the splenic flexure to the anal verge. Biopsies were obtained as well. He was started on steroids IV which he will remain on until transitioned to oral prednisone. Laboratory yesterday after administration of IV potassium showed a sodium of 134 and improvement of potassium to normal at 4.5. BUN was 4 and creatinine was 0.6. Exam Vital signs and Labs for Last 24 Hours: Temp Pulse Resp BP Pulse Ox 97.8 F 85 18 97/54 L 98 04/04/19 04:15 04/04/19 04:15 04/04/19 04:15 04/04/19 04:15 04/04/19 04:15 Laboratory Results - last 24 hr 04/03/19 11:07: POC Glucose 109 04/03/19 16:07: Sodium 134 L, Potassium 4.5 D, Chloride 102, Carbon Dioxide 23, Anion Gap 13.5, BUN 4 L D, Creatinine 0.60 L, Estimated Creat Clear 156, Estimated GFR 140, Est GFR ( Amer) 170, Glucose 102 H, Calcium 7.5 L 04/03/19 16:07: ESR > 140 H 04/03/19 16:07: Ferritin 662 H, C-Reactive Protein 178.8 H 04/03/19 17:00: POC Glucose 104 04/03/19 21:03: POC Glucose 193 H 04/04/19 06:29: POC Glucose 221 H I & O for Last 24 hours: Intake & Output 04/01/19 04/02/19 04/03/19 04/04/19 11:59 11:59 11:59 11:59 Intake Total 4147 / 4147 2380 / 2380 4522.833 / 4522.833 2357 / 2357 Output Total 601 / 601 Balance 4147 / 4147 2379 / 2379 3921.833 / 3921.833 2357 Weight 172 lb 6.424 oz 172 lb 6.424 oz 172 lb 6.424 oz 172 lb 6.424 oz - Constitutional no acute distress (Sitting up in the bed and appears comfortable and happy eating his breakfast.) - *Routine Respiratory Exam Present: CTA bilaterally (Anteriorly and posteriorly) - *Routine Cardiovascular Exam Present: RRR - *Routine Abdominal Exam Present: soft, normoactive bowel sounds. Absent: tenderness, distended - *Routine Extremities Exam Present: MIGUEL stockings. Absent: edema, calf tenderness - *Routine Neurological Exam Present: alert, oriented X3 Assessment and Plan (1) Colitis Current visit: Yes Status: Acute Category: Medical Code(s): K52.9 - Noninfective gastroenteritis and colitis, unspecified (2) Proctitis Current visit: Yes Status: Acute Category: Medical Code(s): K62.89 - Other specified diseases of anus and rectum (3) Hypotension Current visit: Yes Status: Acute Category: Medical Code(s): I95.9 - Hypotension, unspecified (4) Type 2 diabetes mellitus Current visit: Yes Status: Acute Category: Medical Code(s): E11.9 - Type 2 diabetes mellitus without complications (5) ASCVD (arteriosclerotic cardiovascular disease) Current visit: Yes Status: Acute Category: Medical Code(s): I25.10 - Atherosclerotic heart disease of [place] coronary artery without angina pectoris (6) Dehydration Current visit: Yes Status: Acute Category: Medical Code(s): E86.0 - Dehydration (7) Hypokalemia Current visit: Yes Status: Acute Category: Medical Code(s): E87.6 - Hypokalemia (8) Ulcerative colitis Current visit: Yes Status: Acute Category: Medical Code(s): K51.90 - Ulcerative colitis, unspecified, without complications - Assessment and plan all Dx Assessment and Plan for all problems:: With addition of steroids patient is feeling better and symptoms are greatly improved. We will need to watch blood sugar with initiation of the steroids. Encouraged to be out of bed today. Patient states he may try to take some of his p.o. medicines. <Cristobal Batista - Last Filed: 04/04/19 08:39> Internal Medicine - PN: Subj *Date: 04/04/19 *Time: 08:38 Exam Vital signs and Labs for Last 24 Hours: Temp Pulse Resp BP Pulse Ox 97.9 F 89 16 110/70 95 04/04/19 08:00 04/04/19 08:00 04/04/19 08:00 04/04/19 08:00 04/04/19 08:00 Laboratory Results - last 24 hr 04/03/19 11:07: POC Glucose 109 04/03/19 16:07: Sodium 134 L, Potassium 4.5 D, Chloride 102, Carbon Dioxide 23, Anion Gap 13.5, BUN 4 L D, Creatinine 0.60 L, Estimated Creat Clear 156, Estimated GFR 140, Est GFR ( Amer) 170, Glucose 102 H, Calcium 7.5 L 04/03/19 16:07: ESR > 140 H 04/03/19 16:07: Ferritin 662 H, C-Reactive Protein 178.8 H 04/03/19 17:00: POC Glucose 104 04/03/19 21:03: POC Glucose 193 H 04/04/19 06:29: POC Glucose 221 H I & O for Last 24 hours: Intake & Output 04/01/19 04/02/19 04/03/19 04/04/19 11:59 11:59 11:59 11:59 Intake Total 4147 / 4147 2380 / 2380 4522.833 / 4522.833 2358 / 2358 Output Total 601 / 601 Balance 4147 / 4147 2380 / 2380 3921.833 / 3921.833 2358 / 2358 Weight 172 lb 6.424 oz 172 lb 6.424 oz 172 lb 6.424 oz 169 lb 2 oz Assessment and Plan (1) Ulcerative colitis Current visit: Yes Status: Acute Category: Medical Code(s): K51.90 - Ulcerative colitis, unspecified, without complications (2) Hypotension Current visit: Yes Status: Acute Category: Medical Code(s): I95.9 - Hypotension, unspecified (3) Type 2 diabetes mellitus Current visit: Yes Status: Acute Category: Medical Code(s): E11.9 - Type 2 diabetes mellitus without complications (4) ASCVD (arteriosclerotic cardiovascular disease) Current visit: Yes Status: Acute Category: Medical Code(s): I25.10 - Atherosclerotic heart disease of [place] coronary artery without angina pectoris (5) Dehydration Current visit: Yes Status: Acute Category: Medical Code(s): E86.0 - Dehydration (6) Hypokalemia Current visit: Yes Status: Acute Category: Medical Code(s): E87.6 - Hypokalemia - Assessment and plan all Dx Assessment and Plan for all problems:: Patient seen and examined. Concur with above assessment and plan.
[2019-04-05 07:09] LABS: Basophils % 0.3 % (0.1-2.0); Eosinophils % 0.3 % (0.1-12.0); Hematocrit 31.8 % (42.0-52.0); Hemoglobin 10.1 g/dL (14.1-18.0); Lymphocytes # 0.6 K/mm3 (0.7-4.5); Lymphocytes % 8.3 % (10-50); Mean Corpuscular HGB Conc 31.9 g/dL (31.8-35.4); Mean Corpuscular Volume 91.5 fl (80-94); Monocytes # 0.7 K/mm3 (0.1-1.0); Monocytes % 9.6 % (1.7-9.3); Neutrophils # 5.8 K/mm3 (1.8-7.8); Neutrophils % 81.5 % (37.0-80.0); Platelet Count 300 K/mm3 (142-424); Red Blood Count 3.47 M/mm3 (4.60-6.20); Red Cell Distribution Width 13.9 % (11.5-17.5); White Blood Count 7.2 K/mm3 (4.8-10.8)
[2019-04-05 07:19] LABS: Anion Gap 12.3 mEq/L (5-15)
[2019-04-05 07:20] LABS: Calcium 7.4 mg/dl (8.4-10.2)
--- NOTE | 2019-04-05 08:51 | Progress Note ---
<Arin Alejandra - Last Filed: 04/05/19 08:47> Internal Medicine - PN: Subj *Date: 04/05/19 *Time: 08:47 Interval history: Patient did not have a very good night. He was up to the bedside commode several times. He states he slept about 1 hour. He describes 2 severe cramping episodes. He did eat well yesterday without nausea and vomiting. He did ambulate in the room. This a.m. patient seems quite frustrated. Is tired of having stools. He describes them as being more normal now. A.m. labs show a hemoglobin of 10.1 hematocrit of 31.8 with a white blood cell count of 7200 blood chemistries show a sodium of 133 and a normal potassium of 4.3. Blood sugars have been more elevated since being started on the steroids Exam Vital signs and Labs for Last 24 Hours: Temp Pulse Resp BP Pulse Ox 97.7 F 89 18 131/78 95 04/05/19 08:00 04/05/19 08:00 04/05/19 08:00 04/05/19 08:00 04/05/19 08:00 Laboratory Results - last 24 hr 04/04/19 11:41: POC Glucose 254 H 04/04/19 16:31: POC Glucose 247 H 04/04/19 20:24: POC Glucose 239 H 04/05/19 06:15: POC Glucose 284 H 04/05/19 06:37: WBC 7.2, RBC 3.47 L, Hgb 10.1 L, Hct 31.8 L, MCV 91.5, MCH 29.2, MCHC 31.9, RDW 13.9, Plt Count 300, MPV 8.0, Neut % (Auto) 81.5 H, Lymph % (Auto) 8.3 L, [place] % (Auto) 9.6 H, Eos % (Auto) 0.3, Baso % (Auto) 0.3, Neut # (Auto) 5.8, Lymph # (Auto) 0.6 L, [place] # (Auto) 0.7, Eos # (Auto) 0.0, Baso # (Auto) 0.0 04/05/19 06:37: Sodium 133 L, Potassium 4.3, Chloride 103, Carbon Dioxide 22, Anion Gap 12.3, BUN 11 D, Creatinine 0.60 L, Estimated Creat Clear 153, Estimated GFR 140, Est GFR ( Amer) 170, Glucose 288 H, Calcium 7.4 L I & O for Last 24 hours: Intake & Output 04/02/19 04/03/19 04/04/19 04/05/19 11:59 11:59 11:59 11:59 Intake Total 2380 / 2380 4522.833 / 4522.833 2608 / 2608 440 / 440 Output Total 601 / 601 Balance 2380 / 2380 3921.833 / 3921.833 2608 / 2608 440 / 440 Weight 172 lb 6.424 oz 172 lb 6.424 oz 169 lb 2 oz 169 lb 2.007 oz - Constitutional no acute distress - *Routine Respiratory Exam Present: CTA bilaterally (Anteriorly and posteriorly) - *Routine Cardiovascular Exam Present: RRR - *Routine Abdominal Exam Present: soft, normoactive bowel sounds. Absent: tenderness, distended - *Routine Extremities Exam Present: MIGUEL stockings. Absent: edema - *Routine Neurological Exam Present: alert, oriented X3 Assessment and Plan (1) Ulcerative colitis Current visit: Yes Status: Acute Category: Medical Code(s): K51.90 - Ulcerative colitis, unspecified, without complications (2) Hypotension Current visit: Yes Status: Acute Category: Medical Code(s): I95.9 - Hypotension, unspecified (3) Type 2 diabetes mellitus Current visit: Yes Status: Acute Category: Medical Code(s): E11.9 - Type 2 diabetes mellitus without complications (4) ASCVD (arteriosclerotic cardiovascular disease) Current visit: Yes Status: Acute Category: Medical Code(s): I25.10 - Atherosclerotic heart disease of [place] coronary artery without angina pectoris (5) Dehydration Current visit: Yes Status: Acute Category: Medical Code(s): E86.0 - Dehydration (6) Hypokalemia Current visit: Yes Status: Acute Category: Medical Code(s): E87.6 - Hypokalemia - Assessment and plan all Dx Assessment and Plan for all problems:: Continue current care <Cristobal Batista - Last Filed: 04/05/19 15:30> Internal Medicine - PN: Subj *Date: 04/05/19 *Time: 15:26 Exam Vital signs and Labs for Last 24 Hours: Temp Pulse Resp BP Pulse Ox 97.7 F 89 18 131/78 95 04/05/19 08:00 04/05/19 08:00 04/05/19 08:00 04/05/19 08:00 04/05/19 08:00 Laboratory Results - last 24 hr 04/04/19 16:31: POC Glucose 247 H 04/04/19 20:24: POC Glucose 239 H 04/05/19 06:15: POC Glucose 284 H 04/05/19 06:37: WBC 7.2, RBC 3.47 L, Hgb 10.1 L, Hct 31.8 L, MCV 91.5, MCH 29.2, MCHC 31.9, RDW 13.9, Plt Count 300, MPV 8.0, Neut % (Auto) 81.5 H, Lymph % (Auto) 8.3 L, [place] % (Auto) 9.6 H, Eos % (Auto) 0.3, Baso % (Auto) 0.3, Neut # (Auto) 5.8, Lymph # (Auto) 0.6 L, [place] # (Auto) 0.7, Eos # (Auto) 0.0, Baso # (Auto) 0.0 04/05/19 06:37: Sodium 133 L, Potassium 4.3, Chloride 103, Carbon Dioxide 22, Anion Gap 12.3, BUN 11 D, Creatinine 0.60 L, Estimated Creat Clear 153, Estimated GFR 140, Est GFR ( Amer) 170, Glucose 288 H, Calcium 7.4 L 04/05/19 11:47: POC Glucose 246 H I & O for Last 24 hours: Intake & Output 04/03/19 04/04/19 04/05/19 04/06/19 11:59 11:59 11:59 11:59 Intake Total 4522.833 / 4522.833 2608 / 2608 440 / 440 Output Total 601 / 601 Balance 3921.833 / 3921.833 2608 / 2608 440 / 440 Weight 172 lb 6.424 oz 169 lb 2 oz 169 lb 2.007 oz Assessment and Plan (1) Ulcerative colitis Current visit: Yes Status: Acute Category: Medical Code(s): K51.90 - Ulcerative colitis, unspecified, without complications (2) Hypotension Current visit: Yes Status: Acute Category: Medical Code(s): I95.9 - Hypotension, unspecified (3) Type 2 diabetes mellitus Current visit: Yes Status: Acute Category: Medical Code(s): E11.9 - Type 2 diabetes mellitus without complications (4) ASCVD (arteriosclerotic cardiovascular disease) Current visit: Yes Status: Acute Category: Medical Code(s): I25.10 - Atherosclerotic heart disease of [place] coronary artery without angina pectoris (5) Dehydration Current visit: Yes Status: Acute Category: Medical Code(s): E86.0 - Dehydration (6) Hypokalemia Current visit: Yes Status: Acute Category: Medical Code(s): E87.6 - Hypokalemia - Assessment and plan all Dx Assessment and Plan for all problems:: Concur with above assessment. I explained to the patient that he is progressing as expected and should not be surprised that he is still having loose stools and it is encouraging that his stools are beginning to have some form. His labs are stable. He is again reluctant, and indeed refusing to take his oral medication. I explained the plan to transition him from the IV steroids to oral steroids today and encouraged him to take the medication as directed with anticipation of discharge soon.
--- NOTE | 2019-04-05 14:46 | Progress Note ---
Subjective Narrative: Patient complains of some ongoing symptoms of cramping pain and some diarrhea. He is frustrated with his clinical progress. He does, however, states that his stools are becoming more formed. He did tolerate his lunch. Exam Vital signs and Labs for Last 24 Hours: Temp Pulse Resp BP Pulse Ox 97.7 F 89 18 131/78 95 04/05/19 08:00 04/05/19 08:00 04/05/19 08:00 04/05/19 08:00 04/05/19 08:00 Laboratory Results - last 24 hr 04/04/19 16:31: POC Glucose 247 H 04/04/19 20:24: POC Glucose 239 H 04/05/19 06:15: POC Glucose 284 H 04/05/19 06:37: WBC 7.2, RBC 3.47 L, Hgb 10.1 L, Hct 31.8 L, MCV 91.5, MCH 29.2, MCHC 31.9, RDW 13.9, Plt Count 300, MPV 8.0, Neut % (Auto) 81.5 H, Lymph % (Auto) 8.3 L, [place] % (Auto) 9.6 H, Eos % (Auto) 0.3, Baso % (Auto) 0.3, Neut # (Auto) 5.8, Lymph # (Auto) 0.6 L, [place] # (Auto) 0.7, Eos # (Auto) 0.0, Baso # (Auto) 0.0 04/05/19 06:37: Sodium 133 L, Potassium 4.3, Chloride 103, Carbon Dioxide 22, Anion Gap 12.3, BUN 11 D, Creatinine 0.60 L, Estimated Creat Clear 153, Estimated GFR 140, Est GFR ( Amer) 170, Glucose 288 H, Calcium 7.4 L 04/05/19 11:47: POC Glucose 246 H I & O for Last 24 hours: Intake & Output 04/03/19 04/04/19 04/05/19 04/06/19 11:59 11:59 11:59 11:59 Intake Total 4522.833 / 4522.833 2608 / 2608 440 / 440 Output Total 601 / 601 Balance 3921.833 / 3921.833 2608 / 2608 440 / 440 Weight 172 lb 6.424 oz 169 lb 2 oz 169 lb 2.007 oz - *Routine Abdominal Exam Present: soft. Absent: tenderness Progress Note: A&P (1) Ulcerative colitis Status: Acute Current Visit: Yes (2) Hypotension Status: Acute Current Visit: Yes (3) Type 2 diabetes mellitus Status: Acute Current Visit: Yes (4) ASCVD (arteriosclerotic cardiovascular disease) Status: Acute Current Visit: Yes (5) Dehydration Status: Acute Current Visit: Yes (6) Hypokalemia Status: Acute Current Visit: Yes Assessment and Plan for All Diagnoses:: Continue medical management for probable ulcerative colitis
--- NOTE | 2019-04-06 08:07 | Progress Note ---
<Evelyn Gallagher - Last Filed: 04/06/19 08:06> Internal Medicine - PN: Subj *Date: 04/06/19 *Time: 08:06 Interval history: Patient states he is feeling better this morning. He denies any abdominal pain and has been able to tolerate some food. His stools are starting to form. He slept well last night. Exam Vital signs and Labs for Last 24 Hours: Temp Pulse Resp BP Pulse Ox 97.9 F 63 17 105/63 L 96 04/06/19 07:49 04/06/19 07:49 04/06/19 07:49 04/06/19 07:49 04/06/19 07:49 Laboratory Results - last 24 hr 04/03/19 16:07: Iron 24 L, TIBC 110 L, Iron Saturation 22, Unsaturated IBC 86 L 04/05/19 11:47: POC Glucose 246 H 04/05/19 16:20: POC Glucose 199 H 04/05/19 19:57: POC Glucose 279 H 04/06/19 06:07: POC Glucose 223 H I & O for Last 24 hours: Intake & Output 04/03/19 04/04/19 04/05/19 04/06/19 11:59 11:59 11:59 11:59 Intake Total 4522.833 / 4522.833 2608 / 2608 440 / 440 3203 / 3203 Output Total 601 / 601 602 / 602 Balance 3921.833 / 3921.833 2608 / 2608 440 / 440 2601 / 2601 Weight 172 lb 6.424 oz 169 lb 2 oz 169 lb 2.007 oz 169 lb 2.007 oz - Constitutional no acute distress - *Routine Respiratory Exam Present: CTA bilaterally - *Routine Cardiovascular Exam Present: RRR - *Routine Abdominal Exam Present: soft, normoactive bowel sounds. Absent: tenderness - *Routine Extremities Exam Absent: cyanosis, clubbing, edema - *Routine Skin Exam Present: warm. Absent: rash Assessment and Plan (1) Ulcerative colitis Status: Acute Category: Medical Code(s): K51.90 - Ulcerative colitis, unspecified, without complications (2) Hypotension Status: Acute Category: Medical Code(s): I95.9 - Hypotension, unspecified (3) Type 2 diabetes mellitus Status: Acute Category: Medical Code(s): E11.9 - Type 2 diabetes mellitus without complications (4) ASCVD (arteriosclerotic cardiovascular disease) Status: Acute Category: Medical Code(s): I25.10 - Atherosclerotic heart disease of [place] coronary artery without angina pectoris (5) Dehydration Status: Acute Category: Medical Code(s): E86.0 - Dehydration (6) Hypokalemia Status: Acute Category: Medical Code(s): E87.6 - Hypokalemia - Assessment and plan all Dx Assessment and Plan for all problems:: Possible discharge home today on continued steroids. The patient does have a follow-up with Dr. Mcdaniels in early April. <Cristobal Batista - Last Filed: 04/07/19 08:47> Internal Medicine - PN: Subj *Date: 04/07/19 *Time: 08:46 Exam Vital signs and Labs for Last 24 Hours: Temp Pulse Resp BP Pulse Ox 97.9 F 63 17 105/63 L 96 04/06/19 07:49 04/06/19 07:49 04/06/19 07:49 04/06/19 07:49 04/06/19 07:49 Laboratory Results - last 24 hr 04/03/19 16:07: Iron 24 L, TIBC 110 L, Iron Saturation 22, Unsaturated IBC 86 L, Atypical p-ANCA <1:20, S.cerevisiae IgG Ab <20.0, S.cerevisiae IgA Ab 33.5 H I & O for Last 24 hours: Intake & Output 04/04/19 04/05/19 04/06/19 04/07/19 11:59 11:59 11:59 11:59 Intake Total 2608 / 2608 440 / 440 3203 / 3203 Output Total 602 / 602 Balance 2608 / 2608 440 / 440 2601 / 2601 Weight 169 lb 2 oz 169 lb 2.007 oz 169 lb 2.007 oz Assessment and Plan (1) Ulcerative colitis Status: Acute Category: Medical Code(s): K51.90 - Ulcerative colitis, unspecified, without complications (2) Hypotension Status: Acute Category: Medical Code(s): I95.9 - Hypotension, unspecified (3) Type 2 diabetes mellitus Status: Acute Category: Medical Code(s): E11.9 - Type 2 diabetes mellitus without complications (4) ASCVD (arteriosclerotic cardiovascular disease) Status: Acute Category: Medical Code(s): I25.10 - Atherosclerotic heart disease of [place] coronary artery without angina pectoris (5) Dehydration Status: Acute Category: Medical Code(s): E86.0 - Dehydration (6) Hypokalemia Status: Acute Category: Medical Code(s): E87.6 - Hypokalemia - Assessment and plan all Dx Assessment and Plan for all problems:: Patient seen and examined this AM. He is stable for discharge home on oral steroids.
--- NOTE | 2019-04-10 14:02 | Discharge Summary ---
General - General Admission date:: 03/27/19 <Cristobal Batista - 04/22/19 08:45> 03/27/19 <Evelyn Gallagher - 04/10/19 14:04> Discharge date: 04/06/19 <AileenEvelyn - 04/10/19 14:04> HPI HPI: Mr. Fountain is a 53-year-old male with a history of hypertension, diabetes, hyperlipidemia, and acute [place] in 2009 with stent placement who presented to the emergency room with acute nausea, vomiting, and diarrhea. Patient reports that he has had diarrhea for the past month. Symptoms progressed and he has been worse for the last 5 days. He has been unable to retain food, liquids or meds. He denies having a fever. He has had some bloody stools but denies hematemesis. He describes stomach cramping. He thus presented to [facility] emergency room for evaluation. In the emergency room he received a liter of IV fluids. CT of the abdomen revealed colitis/proctitis from the level of the splenic flexure which had increased from previous CT scan 2 weeks ago. He was then admitted for IV fluids, antibiotics, and surgical consult. <Evelyn Gallagher - 04/10/19 14:04> Hospital Course Hospital Course: Patient was started on Levaquin and Flagyl IV. Antiemetics were ordered as well. Patient was seen in consultation by Dr. Summers and he felt that the patient's presentation was consistent with colitis. His stool PCR panel was negative for infectious etiology. Dr. Summers felt there was no need for immediate colonoscopy and recommended continued medical therapy. The patient was able to retain some clear liquids. His diet was therefore advanced to full liquids. He was unable to tolerate this and vomited around 7 times. He continued with diarrhea, but the blood in the stool did improve. The patient refused numerous medications and solid food. He stated he just could not "stomach" them. He was having a frequent urge to defecate, but his stool frequency had decreased. A CT of the abdomen was ordered with contrast and he was started on some potassium supplementation due to hypokalemia. His abdominal CT showed continued colitis/proctitis of uncertain etiology. There was also a small amount of ascites noted as well. The patient continued to refuse p.o. meds and his diet. He continued with small frequent bowel movements and some nausea and vomiting. GI was consulted but was unable to see the patient until 04/03/2019. He was continued on IV antibiotics and IV fluids as well as a liquid diet. His white blood cell count did normalize and he was afebrile. This raised the question of inflammatory bowel disease as the etiology of his symptoms. He was made n.p.o. for possible endoscopy by Dr. Mcdaniels. Dr. Mcdaniels saw the patient on 04/03/2019 and performed a colonoscopy. He found moderate to left-sided ulcerative colitis and initiated the patient on corticosteroid therapy. He did further lab work as well as biopsies. He wanted to follow-up with the patient in a few weeks in his office. Once on the steroids, the patient began feeling better. His abdominal pain improved and he was able to eat small amounts without nausea or vomiting. His stools became mor e formed. The patient was transitioned from IV steroids to oral steroids. He had been reluctant and refused most of his oral medication and Dr. Batista encouraged him to take the medication as directed with the anticipation of discharge. By 04/06/2019, he was feeling better and had finally rested well. He was able to tolerate some of his diet. He was stable to be discharged home on continued oral steroids and will follow-up with Dr. Mcdaniels. <Evelyn Gallagher - 04/10/19 14:04> Objective Vital signs: Temp Pulse Resp BP Pulse Ox 97.9 F 63 17 105/63 L 96 04/06/19 07:49 04/06/19 07:49 04/06/19 07:49 04/06/19 07:49 04/06/19 07:49 <Cristobal Batista - 04/22/19 08:45> Temp Pulse Resp BP Pulse Ox 97.9 F 63 17 105/63 L 96 04/06/19 07:49 04/06/19 07:49 04/06/19 07:49 04/06/19 07:49 04/06/19 07:49 <Evelyn Gallagher - 04/10/19 14:04> Narrative: - Constitutional no acute distress - *Routine Respiratory Exam Present: CTA bilaterally - *Routine Cardiovascular Exam Present: RRR - *Routine Abdominal Exam Present: soft, normoactive bowel sounds. Absent: tenderness - *Routine Extremities Exam Absent: cyanosis, clubbing, edema - *Routine Skin Exam Present: warm. Absent: rash <Evelyn Gallagher - 04/10/19 14:04> DS: Diagnosis - Discharge Diagnosis (1) Ulcerative colitis Status: Acute (2) Hypotension Status: Acute (3) Type 2 diabetes mellitus Status: Acute (4) ASCVD (arteriosclerotic cardiovascular disease) Status: Acute (5) Dehydration Status: Acute (6) Hypokalemia Status: Acute <Evelyn Gallagher - 04/10/19 13:53> (1) Ulcerative colitis Status: Acute (2) Hypotension Status: Acute (3) Type 2 diabetes mellitus Status: Acute (4) ASCVD (arteriosclerotic cardiovascular disease) Status: Acute (5) Dehydration Status: Acute (6) Hypokalemia Status: Acute <Cristobal Batista - 04/22/19 08:45> Discharge Plan - Patient Discharge Instructions ACTIVITY: Continue current activity <Evelyn Gallagher - 04/10/19 14:04> DIET: diabetic diet <Evelyn Gallagher 04/10/19 14:04> Patient Instructions: Ulcerative Colitis, DI for Hypokalemia <Cristobal Batista - 04/22/19 08:45> Forms: <Cristobal Batista - 04/22/19 08:45> - Follow up Plan Follow up with: Cristobal Batista MD [Primary Care Provider] - 04/11/19 Ayesha Marcus APRN [Nurse Practitioner] - 04/17/19 1:30 pm <Cristobal Batista - 04/22/19 08:45> Disposition: Home, Self-Care <Cristobal Batista - 04/22/19 08:45> Home Medications: Home Medications Medication Instructions Recorded Confirmed Type Aspirin [Aspir-Low] 81 mg PO DAILY 03/27/19 03/27/19 History Atorvastatin Calcium [Atorvastatin 80 mg PO HS 03/27/19 03/28/19 History 80mg Tab] Clopidogrel Bisulfate [Plavix 75mg 75 mg PO DAILY 03/27/19 03/28/19 History Tab] Empagliflozin [Jardiance] 25 mg PO DAILY 03/27/19 03/28/19 History Glimepiride 4 mg PO BID 03/27/19 03/28/19 History Metformin HCl [Metformin 1000mg 1,000 mg PO BID 03/27/19 03/28/19 History Tablets] Metoprolol Tartrate [Lopressor 12.5 mg PO BID 03/27/19 03/28/19 History 25mg tablet] lisinopriL [Lisinopril 5mg 5 mg PO DAILY 03/27/19 03/28/19 History Tablet] Diclofenac Sodium [Diclofenac 75mg 75 mg PO BID 03/28/19 03/28/19 History Tab] predniSONE [Deltasone 20mg 20 mg PO TID #20 tab 04/06/19 Rx tablet] <Cristobal Batista - 04/22/19 08:45> Prescriptions/Medication Reconciliation: New predniSONE [Deltasone 20mg tablet] 20 mg PO TID #20 tab Continued Metformin HCl [Metformin 1000mg Tablets] 1,000 mg PO BID lisinopriL [Lisinopril 5mg Tablet] 5 mg PO DAILY Glimepiride 4 mg PO BID Empagliflozin [Jardiance] 25 mg PO DAILY Clopidogrel Bisulfate [Plavix 75mg Tab] 75 mg PO DAILY Metoprolol Tartrate [Lopressor 25mg tablet] 12.5 mg PO BID Aspirin [Aspir-Low] 81 mg PO DAILY Diclofenac Sodium [Diclofenac 75mg Tab] 75 mg PO BID Atorvastatin Calcium [Atorvastatin 80mg Tab] 80 mg PO HS <Cristobal Batista - 04/22/19 08:45> - Problem Reconciliation Problems Reviewed?: Yes <Cristobal Batista - 04/22/19 08:45> Yes <Evelyn Gallagher - 04/10/19 14:04> - Additional Information Additional Information: Concur with plan for discharge as outlined above. <Cristobal Batista - 04/22/19 08:45>
== END 2019-04-06 09:48 | disposition home or self-care (01) | DRG 387 ==
LOC: 2ND 14:45 → ER 14:45 → OBSVTOIN 19:51 → 2ND 19:52
PROVIDERS: ADMIT Family Medicine; ATTEND Family Medicine
CPT/HCPCS: 36415; 74177; 80048; 80053; 81001; 82150; 82728; 82962; 83540; 83550; 83605; 83690; 85025; 85651; 86140; 86256; 86671; 87040; 87506; 96365; 96366; 99284; J1956; J2405; Q9967

== ENCOUNTER 2019-04-24 10:37 | Inpatient (IN) ==
[2019-04-24 12:12] LABS: Albumin Level 2.8 g/dl (3.5-5.0); Albumin/Globulin Ratio 0.8 (1.1-1.8); Anion Gap 13.5 mEq/L (5-15); Bilirubin,Total 0.4 mg/dl (0.2-1.3); Globulin 3.5 g/dL (1.3-3.2); Total Protein,Serum 6.3 g/dl (6.3-8.2)
[2019-04-24 12:13] LABS: Calcium 8.6 mg/dl (8.4-10.2)
[2019-04-24 12:18] LABS: C-Reactive Protein 153.2 mg/L (0-4)
--- NOTE | 2019-04-24 12:30 | Pharmacy Consult Notes ---
[facility] Pharmacy VTE Monitoring - Patient Demographics Admission date: 04/24/19 Report Date: 04/24/19 Time: 12:30 Allergies/Adverse Reactions: Patient Allergies No Known Allergies Allergy (Verified 03/27/19 15:10) Height: 1.75 m Weight: 62.766 kg - VTE Risk Labs: VTE Related Lab Results BUN 6 mg/dl (9-20) L 04/24/19 11:10 Creatinine 0.50 mg/dl (0.66-1.25) L 04/24/19 11:10 Estimated Creat Clear 150 mL/min (50-200) 04/24/19 11:10 Clinical Trial Participant: No - Prophylaxis VTE Prophylaxis Ordered?: Yes Types of VTE Prophylaxis: TEDS Knee High
[2019-04-24 12:35] LABS: Basophils % 0.2 % (0.1-2.0); Eosinophils # 0.3 K/mm3 (0.0-0.4); Eosinophils % 4.8 % (0.1-12.0); Hematocrit 27.5 % (42.0-52.0); Hemoglobin 8.6 g/dL (14.1-18.0); Lymphocytes # 1.3 K/mm3 (0.7-4.5); Lymphocytes % 19.6 % (10-50); Mean Corpuscular HGB Conc 31.5 g/dL (31.8-35.4); Mean Corpuscular Volume 90.3 fl (80-94); Mean Platelet Volume 7.3 fl (7.4-10.4); Monocytes # 0.2 K/mm3 (0.1-1.0); Monocytes % 3.7 % (1.7-9.3); Neutrophils # 4.6 K/mm3 (1.8-7.8); Neutrophils % 71.6 % (37.0-80.0); Platelet Count 550 K/mm3 (142-424); Red Blood Count 3.04 M/mm3 (4.60-6.20); Red Cell Distribution Width 14.4 % (11.5-17.5); White Blood Count 6.4 K/mm3 (4.8-10.8)
[2019-04-24 13:25] LABS: Erythrocyte Sedimentation Rate > 140 mm/hr (0-20)
--- NOTE | 2019-04-24 18:08 | History & Physical Report ---
*Admission Date: 04/24/19 *Chief complaint: vomting and weight loss *History of present illness: Mr. Fountain is a 53-year-old white male with a history of heart disease, hypertension, hyperlipidemia, and diabetes mellitus who was hospitalized at [facility] last month for 10 days when he was diagnosed with ulcerative colitis for the first time. He was discharged home on high-dose steroids with plans to follow-up with Dr. Mcdaniels to consider initiation of biologic agents. Since going home, he has had a very slow recovery. He has never had a real good appetite. He has persisted with diarrhea which initially was bloody but over the last week or two, he has had more formed stools although still 5 or 6/day but has not seen any blood. Two weeks prior to being diagnosed with ulcerative colitis, a documented weight in the office was 195 on 03/16/2019. On his first post hospital visit in the office on 04/11/2019, his weight was down to 168. He returned to the office today with a 2-day history of nausea, vomiting, anorexia. Weight in the office today was down to 148. He appeared weak and cachectic and mucous membranes were dry and his blood pressure was low. I spoke with Ayesha Marcus APRN for Dr. Mcdaniels and made her aware of his condition. Of note, he was started on mesalamine and iron per Dr. Mcdaniels about a week ago. He has continued on a tapering schedule of steroids. He has not been able to take any medications for the past 2 days. He is being admitted for IV fluid hydration, further laboratory work-up, and repeat CT scan of the abdomen. [facility] History Medical History: Reports:: Coronary Artery Disease, Diabetes Mellitus Type 2, Hyperlipidemia, Hypertension, Myocardial Infarction Denies:: Cancer, Diabetes Mellitus Type 1, MRSA *Have you ever received a pneumonia vaccine?: No *Have you received a flu vaccine this season?: Yes Other Medical History: Reports: Hypothyroidism. Denies: Arthritis Other Surgeries: Yes: Cardiac Catheterization, Colonoscopy, Coronary Stent Amputation: No - *Social History Educational Level: Completed High School Smoking Status: Former smoker Tobacco Type: cigarettes # Packs/Day (cigarettes): 1 #Yrs smoked (if former smoker): 18 Alcohol Intake: never Substance Use Type: denies use *Occupational Status:: employed Housing: house Household Members: children *Travel in the last 8 weeks: None Family Hx:: Diabetes, Heart Attack Review of Systems - Constitutional Reports anorexia, Reports fatigue, Reports lack of energy, Reports weakness, Reports weight loss - Eyes Denies change in vision - ENT Reports dry mouth, Denies hearing loss, Denies nasal congestion, Denies sore throat - *Cardiovascular Denies chest pain, Denies shortness of breath, Denies irregular heart rhythm - *Respiratory Denies chest congestion, Denies cough - *Gastrointestinal Reports abdominal pain (mild cramps), Denies heartburn, Denies difficulty swallowing, Denies bright, red blood in stools - *Genitourinary Denies difficulty urinating - *Musculoskeletal Denies joint swelling - Integumentary/Breasts Denies change in skin color - *Neurologic Reports behavioral changes, Denies confusion - Psychiatric Reports lack of enjoyment - Endocrine Denies cold intolerance, Denies excessive sweating - Hematologic/Lymphatic Denies easy bruising Meds Home Medications Medication Instructions Recorded Confirmed Type Aspirin [Aspir-Low] 81 mg PO DAILY 03/27/19 04/24/19 History Atorvastatin Calcium [Atorvastatin 80 mg PO HS 03/27/19 04/24/19 History 80mg Tab] Clopidogrel Bisulfate [Plavix 75mg 75 mg PO DAILY 03/27/19 04/24/19 History Tab] Glimepiride 4 mg PO BID 03/27/19 04/24/19 History Metformin HCl [Metformin 1000mg 1,000 mg PO BID 03/27/19 04/24/19 History Tablets] Metoprolol Tartrate [Lopressor 25 mg PO BID 03/27/19 04/24/19 History 25mg tablet] Diclofenac Sodium [Diclofenac 75mg 75 mg PO BID 03/28/19 04/24/19 History Tab] Ferrous Gluconate [Ferrous 324 mg PO DAILY 04/24/19 04/24/19 History Gluconate 324mg Tab] Mesalamine [Mesalamine ER] 4 cap PO DAILY 04/24/19 04/24/19 History predniSONE [Deltasone 20mg 20 mg PO TID 04/24/19 04/24/19 History tablet] Allergies Allergy/AdvReac Type Severity Reaction Status Date / Time No Known Allergies Allergy Verified 03/27/19 15:10 Exam Vital signs and Labs for Last 24 Hours: Temp Pulse Resp BP Pulse Ox 97.9 F 95 H 16 102/55 L 100 04/24/19 16:00 04/24/19 16:00 04/24/19 16:00 04/24/19 16:00 04/24/19 16:00 Laboratory Results - last 24 hr 04/24/19 11:10: WBC 6.4, RBC 3.04 L, Hgb 8.6 L, Hct 27.5 L, MCV 90.3, MCH 28.4, MCHC 31.5 L, RDW 14.4, Plt Count 550 H, MPV 7.3 L, Neut % (Auto) 71.6, Lymph % (Auto) 19.6, Emanuel % (Auto) 3.7, Eos % (Auto) 4.8, Baso % (Auto) 0.2, Neut # (Auto) 4.6, Lymph # (Auto) 1.3, Emanuel # (Auto) 0.2, Eos # (Auto) 0.3, Baso # (Auto) 0.0, ESR > 140 H 04/24/19 11:10: Sodium 132 L, Potassium 3.5, Chloride 94 L, Carbon Dioxide 28, Anion Gap 13.5, BUN 6 L, Creatinine 0.50 L, Estimated Creat Clear 150, Estimated GFR 173, Est GFR ( Amer) 210, Glucose 162 H, Calcium 8.6, Total Bilirubin 0.4, AST 20, ALT 23, Alkaline Phosphatase 67, C-Reactive Protein 153.2 H, Total Protein 6.3 D, Albumin 2.8 L, Globulin 3.5 H, Albumin/Globulin Ratio 0.8 L I & O for Last 24 hours: Intake & Output 04/22/19 04/23/19 04/24/19 04/25/19 11:59 11:59 11:59 11:59 Weight 138 lb 6 oz Narrative: Appears weak and cachectic. Color is pale. Voice is hoarse. No respiratory distress. HEENT shows the cranium to be atraumatic and normocephalic. Sclera and conjunctive are clear. Nares patent. Mucous membranes are slightly dry. Neck is supple with no masses, thyromegaly, or bruits. Lungs are clear to auscultation. Heart is regular with no murmurs. Abdomen is soft and nondistended with no unusual masses or tenderness. Bowel sounds are present but diminished. Lower extremities show no edema. Assessment and Plan (1) Nausea and vomiting Current visit: Yes Status: Acute Category: Medical Code(s): R11.2 - Nausea with vomiting, unspecified (2) Weight loss Current visit: Yes Status: Acute Category: Medical Code(s): R63.4 - Abnormal weight loss (3) Hypovolemia Current visit: Yes Status: Acute Category: Medical Code(s): E86.1 - Hypovolemia (4) Hypotension Current visit: No Status: Acute Category: Medical Code(s): I95.9 - Hypotension, unspecified (5) Ulcerative colitis Current visit: No Status: Acute Category: Medical Code(s): K51.90 - Ulcerative colitis, unspecified, without complications (6) History of coronary artery disease Current visit: Yes Status: Acute Category: Medical Code(s): Z86.79 - Personal history of other diseases of the circulatory system (7) Type 2 diabetes mellitus Current visit: No Status: Acute Category: Medical Code(s): E11.9 - Type 2 diabetes mellitus without complications - Assessment and plan all Dx Assessment and Plan for all problems:: He has had a nearly 40 pound weight loss since his diagnosis of ulcerative colitis. According to his , his appetite was starting to fruit or nut picker some last week but over the weekend he developed nausea and vomiting and could not estrellita erate any solid foods or medication. He was able to drink some liquids. When he was seen in the office today, he was very weak and appeared cachectic and his blood pressure was low. He is being admitted for IV fluid hydration. We will also plan to repeat his CT scan of the abdomen and pelvis.
[2019-04-25 06:58] LABS: Anion Gap 7.3 mEq/L (5-15)
[2019-04-25 07:23] LABS: Basophils % 0.2 % (0.1-2.0); Eosinophils # 0.2 K/mm3 (0.0-0.4); Eosinophils % 5.9 % (0.1-12.0); Lymphocytes # 0.5 K/mm3 (0.7-4.5); Lymphocytes % 15.7 % (10-50); Mean Corpuscular HGB Conc 30.2 g/dL (31.8-35.4); Mean Corpuscular Volume 91.1 fl (80-94); Mean Platelet Volume 7.9 fl (7.4-10.4); Monocytes # 0.1 K/mm3 (0.1-1.0); Monocytes % 4.5 % (1.7-9.3); Neutrophils # 2.3 K/mm3 (1.8-7.8); Neutrophils % 73.7 % (37.0-80.0); Platelet Count 433 K/mm3 (142-424); Red Blood Count 2.56 M/mm3 (4.60-6.20); Red Cell Distribution Width 14.4 % (11.5-17.5); White Blood Count 3.2 K/mm3 (4.8-10.8)
[2019-04-25 07:45] LABS: Calcium 7.5 mg/dl (8.4-10.2)
[2019-04-25 07:46] LABS: Hemoglobin 7.1 g/dL (14.1-18.0)
[2019-04-25 07:47] LABS: Hematocrit 23.4 % (42.0-52.0)
--- NOTE | 2019-04-25 09:09 | Progress Note ---
Internal Medicine - PN: Subj *Date: 04/25/19 *Time: 08:17 Interval history: States he was up to the bedside commode several times during the night with diarrhea. No reports of blood in the stool. Denies abdominal pain. No vomiting since admission but has refuses oral medications out of fear of upsetting his stomach. Exam Vital signs and Labs for Last 24 Hours: Temp Pulse Resp BP Pulse Ox 99.8 F H 93 H 16 94/58 L 98 04/25/19 08:00 04/25/19 08:00 04/25/19 08:00 04/25/19 08:00 04/25/19 08:00 Laboratory Results - last 24 hr 04/24/19 11:10: WBC 6.4, RBC 3.04 L, Hgb 8.6 L, Hct 27.5 L, MCV 90.3, MCH 28.4, MCHC 31.5 L, RDW 14.4, Plt Count 550 H, MPV 7.3 L, Neut % (Auto) 71.6, Lymph % (Auto) 19.6, [place] % (Auto) 3.7, Eos % (Auto) 4.8, Baso % (Auto) 0.2, Neut # (Auto) 4.6, Lymph # (Auto) 1.3, [place] # (Auto) 0.2, Eos # (Auto) 0.3, Baso # (Auto) 0.0, ESR > 140 H 04/24/19 11:10: Sodium 132 L, Potassium 3.5, Chloride 94 L, Carbon Dioxide 28, Anion Gap 13.5, BUN 6 L, Creatinine 0.50 L, Estimated Creat Clear 150, Estimated GFR 173, Est GFR ( Amer) 210, Glucose 162 H, Calcium 8.6, Total Bilirubin 0.4, AST 20, ALT 23, Alkaline Phosphatase 67, C-Reactive Protein 153.2 H, Total Protein 6.3 D, Albumin 2.8 L, Globulin 3.5 H, Albumin/Globulin Ratio 0.8 L 04/24/19 11:10: TSH 2.30 04/24/19 20:10: POC Glucose 273 H 04/25/19 06:05: WBC 3.2 L D, RBC 2.56 L, Hgb 7.1 L*, Hct 23.4 L*, MCV 91.1, MCH 27.5, MCHC 30.2 L, RDW 14.4, Plt Count 433 H, MPV 7.9, Neut % (Auto) 73.7, Lymph % (Auto) 15.7, [place] % (Auto) 4.5, Eos % (Auto) 5.9, Baso % (Auto) 0.2, Neut # (Auto) 2.3, Lymph # (Auto) 0.5 L, [place] # (Auto) 0.1, Eos # (Auto) 0.2, Baso # (Auto) 0.0 04/25/19 06:05: Sodium 132 L, Potassium 3.3 L, Chloride 100, Carbon Dioxide 28, Anion Gap 7.3, BUN 2 L D, Creatinine 0.50 L, Estimated Creat Clear 153, Estimated GFR 173, Est GFR ( Amer) 210, Glucose 138 H, Calcium 7.5 L D I & O for Last 24 hours: Intake & Output 04/22/19 04/23/19 04/24/19 04/25/19 11:59 11:59 11:59 11:59 Intake Total 2735 / 2735 Output Total 300 / 300 Balance 2435 / 2435 Weight 138 lb 6 oz 141 lb 6 oz Narrative: Affect is flat. He appears in no distress. Color is pale. Lungs are clear to auscultation. Abdomen is thin, soft, nondistended with no tenderness. Assessment and Plan (1) Nausea and vomiting Current visit: Yes Status: Acute Category: Medical Code(s): R11.2 - Nausea with vomiting, unspecified (2) Weight loss Current visit: Yes Status: Acute Category: Medical Code(s): R63.4 - Abnormal weight loss (3) Hypovolemia Current visit: Yes Status: Acute Category: Medical Code(s): E86.1 - Hypovolemia (4) Hypotension Current visit: No Status: Acute Category: Medical Code(s): I95.9 - Hypotension, unspecified (5) Ulcerative colitis Current visit: No Status: Acute Category: Medical Code(s): K51.90 - Ulcerative colitis, unspecified, without complications (6) History of coronary artery disease Current visit: Yes Status: Acute Category: Medical Code(s): Z86.79 - Personal history of other diseases of the circulatory system (7) Type 2 diabetes mellitus Current visit: No Status: Acute Category: Medical Code(s): E11.9 - Type 2 diabetes mellitus without complications (8) Anemia Current visit: Yes Status: Acute Category: Medical Code(s): D64.9 - Anemia, unspecified - Assessment and plan all Dx Assessment and Plan for all problems:: As expected, his hemoglobin has dropped further to 7.1 related to hemodilution from the IV fluids. Blood pressure is stable but remains low. CT scan from yesterday shows persistent colitis in the sigmoid rectum but overall improved from his previous CT scan. Plan is to transfuse with 2 units of blood today and encourage his diet. Will likely be able to discharge home later today or tomorrow.
[2019-04-25 19:40] LABS: Hematocrit 27.9 % (42.0-52.0)
[2019-04-25 19:56] LABS: Hemoglobin 8.9 g/dL (14.1-18.0)
--- NOTE | 2019-04-26 08:41 | Progress Note ---
<Arin Alejandra - Last Filed: 04/26/19 08:38> Internal Medicine - PN: Subj *Date: 04/26/19 *Time: 08:38 Interval history: Patient's states he is better. Patient states he was up several times during the night due to having stools. He describes them as loose. He has been up to the bedside commode and sat on the side of the bed for eating. He did eat his breakfast this morning and thus far no nausea and no vomiting. He denies abdominal pain. He also denies chest pain and shortness of breath. As per nursing notes patient has been refusing p.o. medicines. Patient did receive 2 units of packed red blood cells yesterday; Posttransfusion H&H were 8.9/27.9. Exam Vital signs and Labs for Last 24 Hours: Temp Pulse Resp BP Pulse Ox 98.9 F 78 16 107/62 L 99 04/26/19 08:00 04/26/19 08:00 04/26/19 08:00 04/26/19 08:00 04/26/19 08:00 Laboratory Results - last 24 hr 04/25/19 09:35: Blood Type B Positive, Antibody Screen Negative, Crossmatch (AHG) See Detail 04/25/19 10:47: POC Glucose 120 H 04/25/19 12:20: Blood Type Confirm B Positive 04/25/19 17:39: POC Glucose 128 H 04/25/19 19:25: Hgb 8.9 L D, Hct 27.9 L 04/25/19 21:47: POC Glucose 165 H 04/26/19 05:05: POC Glucose 147 H I & O for Last 24 hours: Intake & Output 04/23/19 04/24/19 04/25/19 04/26/19 11:59 11:59 11:59 11:59 Intake Total 3095 / 3095 1210 / 1210 Output Total 600 / 600 500 / 500 Balance 2495 / 2495 710 / 710 Weight 138 lb 6 oz 141 lb 6 oz 143 lb 1 oz - Constitutional no acute distress, thin - *Routine Respiratory Exam Present: CTA bilaterally (Anteriorly and posteriorly) - *Routine Cardiovascular Exam Present: RRR - *Routine Abdominal Exam Present: soft, normoactive bowel sounds. Absent: tenderness, distended - *Routine Extremities Exam Absent: edema, calf tenderness - *Routine Neurological Exam Present: alert, oriented X3 Assessment and Plan (1) Nausea and vomiting Status: Acute Category: Medical Code(s): R11.2 - Nausea with vomiting, unspecified (2) Weight loss Status: Acute Category: Medical Code(s): R63.4 - Abnormal weight loss (3) Hypovolemia Status: Acute Category: Medical Code(s): E86.1 - Hypovolemia (4) Hypotension Status: Acute Category: Medical Code(s): I95.9 - Hypotension, unspecified (5) Ulcerative colitis Status: Acute Category: Medical Code(s): K51.90 - Ulcerative colitis, unspecified, without complications (6) History of coronary artery disease Status: Acute Category: Medical Code(s): Z86.79 - Personal history of other diseases of the circulatory system (7) Type 2 diabetes mellitus Status: Acute Category: Medical Code(s): E11.9 - Type 2 diabetes mellitus without complications (8) Anemia Status: Acute Category: Medical Code(s): D64.9 - Anemia, unspecified - Assessment and plan all Dx Assessment and Plan for all problems:: Continue with current care. Patient encouraged to take p.o. medicines. <Cristobal Batista - Last Filed: 04/26/19 10:20> Internal Medicine - PN: Subj *Date: 04/26/19 *Time: 10:18 Exam Vital signs and Labs for Last 24 Hours: Temp Pulse Resp BP Pulse Ox 98.9 F 78 16 107/62 L 99 04/26/19 08:00 04/26/19 08:00 04/26/19 08:00 04/26/19 08:00 04/26/19 08:00 Laboratory Results - last 24 hr 04/25/19 09:35: Blood Type B Positive, Antibody Screen Negative, Crossmatch (AHG) See Detail 04/25/19 10:47: POC Glucose 120 H 04/25/19 12:20: Blood Type Confirm B Positive 04/25/19 17:39: POC Glucose 128 H 04/25/19 19:25: Hgb 8.9 L D, Hct 27.9 L 04/25/19 21:47: POC Glucose 165 H 04/26/19 05:05: POC Glucose 147 H I & O for Last 24 hours: Intake & Output 03/15/20 03/16/20 03/17/20 03/18/20 11:59 11:59 11:59 11:59 Intake Total 3095 / 3095 1210 / 1210 Output Total 600 / 600 500 / 500 Balance 2495 / 2495 710 / 710 Weight 138 lb 6 oz 141 lb 6 oz 143 lb 1 oz Assessment and Plan (1) Nausea and vomiting Status: Acute Category: Medical Code(s): R11.2 - Nausea with vomiting, unspecified (2) Weight loss Status: Acute Category: Medical Code(s): R63.4 - Abnormal weight loss (3) Hypovolemia Status: Acute Category: Medical Code(s): E86.1 - Hypovolemia (4) Hypotension Status: Acute Category: Medical Code(s): I95.9 - Hypotension, unspecified (5) Ulcerative colitis Status: Acute Category: Medical Code(s): K51.90 - Ulcerative colitis, unspecified, without complications (6) History of coronary artery disease Status: Acute Category: Medical Code(s): Z86.79 - Personal history of other diseases of the circulatory system (7) Type 2 diabetes mellitus Status: Acute Category: Medical Code(s): E11.9 - Type 2 diabetes mellitus without complications (8) Anemia Status: Acute Category: Medical Code(s): D64.9 - Anemia, unspecified - Assessment and plan all Dx Assessment and Plan for all problems:: Patient seen and examined this morning. He appears to feel better after receiving the blood. Appetite is improving. He has had no vomiting since admission. He is still refusing p.o. medications because of fear of upsetting his stomach. This makes me question his compliance at home and have encouraged him to take his medications as prescribed. He is stable for discharge home today. We will send a prescription for Zofran to curb any nausea. He will be following up with Dr. Mcdaniels for additional recommendations.
--- NOTE | 2019-04-26 14:26 | Discharge Summary ---
General - General Admission date:: 04/24/19 Discharge date: 04/26/19 HPI HPI: Mr. Fountain is a 53-year-old white male with a history of heart disease, hypertension, hyperlipidemia, and diabetes mellitus who was hospitalized at [facility] last month for 10 days when he was diagnosed with ulcerative colitis for the first time. He was discharged home on high-dose steroids with plans to follow-up with Dr. Mcdaniels to consider initiation of biologic agents. Since going home, he has had a very slow recovery. He has never had a real good appetite. He has persisted with diarrhea which initially was bloody but over the last week or two, he has had more formed stools although still 5 or 6/day but has not seen any blood. Two weeks prior to being diagnosed with ulcerative colitis, a documented weight in the office was 195 on 03/16/2019. On his first post hospital visit in the office on 04/11/2019, his weight was down to 168. He returned to the office today with a 2-day history of nausea, vomiting, anorexia. Weight in the office today was down to 148. He appeared weak and cachectic and mucous membranes were dry and his blood pressure was low. I spoke with Ayesha Marcus APRN for Dr. Mcdaniels and made her aware of his condition. Of note, he was started on mesalamine and iron per Dr. Mcdaniels about a week ago. He has continued on a tapering schedule of steroids. He has not been able to take any medications for the past 2 days. He is being admitted for IV fluid hydration, further laboratory work-up, and repeat CT scan of the abdomen. Hospital Course Hospital Course: The patient's abdominal CT showed diffuse colitis from the splenic flexure to the rectum appearing slightly improved compared to his previous study. He was started on IV fluids and labs were ordered. The patient's vomiting subsided after admission, but he refused oral medications out of fear of upsetting his stomach. He did continue with diarrhea. His hemoglobin was initially 8.6 but dropped to 7.1 with hydration. His blood pressure was stable but low. He was transfused with 2 units of packed red blood cells and a diet was encouraged. He did feel better after his blood transfusion. He continued to have stools but was able to eat some breakfast and had no further nausea or vomiting. His posttransfusion H&H was 8.9 and 27.9. He continued to refuse p.o. medications because of fear of upsetting his stomach. His compliance at home was also questionable. He was encouraged to take his medications as prescribed and was stable to be discharged home with a prescription for Zofran to curb any nausea. He will follow-up with Dr. Mcdaniels for additional recommendations. Objective Vital signs: Temp Pulse Resp BP Pulse Ox 98.9 F 78 16 107/62 L 99 04/26/19 08:00 04/26/19 08:00 04/26/19 08:00 04/26/19 08:00 04/26/19 08:00 Narrative: - Constitutional no acute distress, thin - *Routine Respiratory Exam Present: CTA bilaterally (Anteriorly and posteriorly) - *Routine Cardiovascular Exam Present: RRR - *Routine Abdominal Exam Present: soft, normoactive bowel sounds. Absent: tenderness, distended - *Routine Extremities Exam Absent: edema, calf tenderness - *Routine Neurological Exam Present: alert, oriented X3 Results Labs on day of discharge: Labs from last 24 hours 04/26/19 04/25/19 04/25/19 05:05 21:47 19:25 Hgb 8.9 L D Hct 27.9 L POC Glucose 147 H 165 H Blood Type Antibody Screen Crossmatch (AHG) 04/25/19 04/25/19 04/25/19 17:39 09:35 06:06 Hgb Hct POC Glucose 128 H 156 H Blood Type B Positive Antibody Screen Negative Crossmatch (AHG) See Detail DS: Diagnosis - Discharge Diagnosis (1) Nausea and vomiting Status: Acute (2) Weight loss Status: Acute (3) Hypovolemia Status: Acute (4) Hypotension Status: Acute (5) Ulcerative colitis Status: Acute (6) History of coronary artery disease Status: Acute (7) Type 2 diabetes mellitus Status: Acute (8) Anemia Status: Acute Discharge Plan - Patient Discharge Instructions ACTIVITY: Continue current activity DIET: continue same diet Patient Instructions: Ulcerative Colitis, DI for Dehydration -- Adult - Follow up Plan Follow up with: Cristobal Batista MD [Primary Care Provider] - 05/09/19 10:00 am Disposition: Home, Self-Shelter Medications: Home Medications Medication Instructions Recorded Confirmed Type Aspirin [Aspir-Low] 81 mg PO DAILY 03/27/19 04/24/19 History Atorvastatin Calcium [Atorvastatin 80 mg PO HS 03/27/19 04/24/19 History 80mg Tab] Clopidogrel Bisulfate [Plavix 75mg 75 mg PO DAILY 03/27/19 04/24/19 History Tab] Glimepiride 4 mg PO BID 03/27/19 04/24/19 History Metformin HCl [Metformin 1000mg 1,000 mg PO BID 03/27/19 04/24/19 History Tablets] Metoprolol Tartrate [Lopressor 25 mg PO BID 03/27/19 04/24/19 History 25mg tablet] Diclofenac Sodium [Diclofenac 75mg 75 mg PO BID 03/28/19 04/24/19 History Tab] Ferrous Gluconate [Ferrous 324 mg PO DAILY 04/24/19 04/24/19 History Gluconate 324mg Tab] Mesalamine [Mesalamine ER] 4 cap PO DAILY 04/24/19 04/24/19 History predniSONE [Deltasone 20mg 20 mg PO TID 04/24/19 04/24/19 History tablet] ondansetron HCL [Zofran 4mg Tab*] 4 mg PO TIDP PRN #20 tab 04/26/19 Rx Prescriptions/Medication Reconciliation: New ondansetron HCL [Zofran 4mg Tab*] 4 mg PO TIDP PRN #20 tab PRN Reason: Nausea Continued Metformin HCl [Metformin 1000mg Tablets] 1,000 mg PO BID Glimepiride 4 mg PO BID Clopidogrel Bisulfate [Plavix 75mg Tab] 75 mg PO DAILY Metoprolol Tartrate [Lopressor 25mg tablet] 25 mg PO BID Aspirin [Aspir-Low] 81 mg PO DAILY Diclofenac Sodium [Diclofenac 75mg Tab] 75 mg PO BID Mesalamine [Mesalamine ER] 4 cap PO DAILY Ferrous Gluconate [Ferrous Gluconate 324mg Tab] 324 mg PO DAILY Atorvastatin Calcium [Atorvastatin 80mg Tab] 80 mg PO HS predniSONE [Deltasone 20mg tablet] 20 mg PO TID - Problem Reconciliation Problems Reviewed?: Yes
== END 2019-04-26 10:15 | disposition home or self-care (01) | DRG 641 ==
LOC: 2ND → OBSVTOIN 10:45
PROVIDERS: ADMIT Family Medicine; ATTEND Family Medicine
CPT/HCPCS: 36415; 74177; 80048; 80053; 82962; 84443; 85014; 85018; 85025; 85651; 86140; 86850; P9016; Q9967

== ENCOUNTER 2019-08-05 10:51 | Observation (INO) | payer OTHER, SELFPAY ==
[2019-08-05 11:40] VITALS: BP 86/56; PULSE 95; RESP 18; TEMP 36.9; O2SAT 98
[2019-08-05 11:44] VITALS: BMI 20.8
[2019-08-05 11:45] VITALS: O2SAT 98
--- NOTE | 2019-08-05 12:00 | P.CONPHA_ITS ---
[facility] Pharmacy VTE Monitoring - Patient Demographics Admission date: 08/05/19 Report Date: 08/05/19 Time: 12:00 Allergies/Adverse Reactions: Patient Allergies No Known Allergies Allergy (Verified 03/27/19 15:10) Height: 1.75 m Weight: 64.098 kg - Prophylaxis VTE Prophylaxis Ordered?: Yes Types of VTE Prophylaxis: TEDS Knee High, Pharmacological Location of Applied Device: Bilateral Lower Extremeties Pharmacologic Type: Enoxaparin - VTE Diagnosis Confirmed Treatment or plan recommended: Continue Current Treatment
--- NOTE | 2019-08-05 12:14 | HMH.HP ---
*Admission Date: 08/05/19 *Chief complaint: vomiting *History of present illness: 53 year old male who appears older than stated age presented to office of [facility] this morning with a 1 week history of nausea, vomiting, diarrhea and some abdominal pain. Patient states everything he tries to eat makes him sick. He has had problems tolerating his medications as well. He has noted a small amount of blood in a few of his bowel movements. He denies fever and chills, he has had some weight loss. He has had no recent travel. He was diagnosed with ulcerative colitis about [address] Mcdaniels[address] [facility] History Medical History: Reports:: Coronary Artery Disease, Diabetes Mellitus Type 2, Hyperlipidemia, Hypertension, Myocardial Infarction (2009) Denies:: Cancer, Diabetes Mellitus Type 1, MRSA *Have you ever received a pneumonia vaccine?: No *Have you received a flu vaccine this season?: Yes Other Medical History: Reports: Hypothyroidism, Other (Ulcerative colitis). Denies: Arthritis Other Surgeries: Yes: Cardiac Catheterization, Colonoscopy, Coronary Stent (, 2009) Amputation: No - *Social History Educational Level: Completed High School Smoking Status: Former smoker Tobacco Type: cigarettes # Packs/Day (cigarettes): 1 #Yrs smoked (if former smoker): 18 Smoking End Date: 02/08/2009 Alcohol Intake: never Substance Use Type: denies use *Occupational Status:: employed Housing: house Household Members: spouse, children *Travel in the last 8 weeks: None Family Hx:: Coronary Artery Disease, Diabetes, Heart Attack, Hypertension Review of Systems - Constitutional Reports weakness, Reports weight loss, Denies chills, Denies fever(s) - Eyes Denies blurry vision - ENT Reports dry mouth - *Cardiovascular Denies chest pain - *Respiratory Denies cough - *Genitourinary Denies difficulty urinating - *Musculoskeletal Denies joint pain - Integumentary/Breasts Denies rash - *Neurologic Denies dizziness - Psychiatric Denies confusion - Hematologic/Lymphatic Denies easy bruising Meds Home Medications Medication Instructions Recorded Confirmed Type Aspirin [Aspir-Low] 81 mg PO DAILY 03/27/19 04/24/19 History Atorvastatin Calcium [Lipitor 80mg 80 mg PO HS 03/27/19 04/24/19 History Tab] Clopidogrel Bisulfate [Plavix 75mg 75 mg PO DAILY 03/27/19 04/24/19 History Tab] Glimepiride 4 mg PO BID 03/27/19 04/24/19 History Metformin HCl [Metformin 1000mg 1,000 mg PO BID 03/27/19 04/24/19 History Tablets] Metoprolol Tartrate [Lopressor 25 mg PO BID 03/27/19 04/24/19 History 25mg tablet] Allergies Allergy/AdvReac Type Severity Reaction Status Date / Time No Known Allergies Allergy Verified 03/27/19 15:10 Exam I & O for Last 24 hours: Intake & Output 08/02/19 08/03/19 08/04/19 08/05/19 23:59 23:59 23:59 23:59 Weight 141 lb 5 oz - Constitutional no acute distress, thin Comments: appears not to feel well - *Routine HEENT Exam Head: Present: normocephalic Eye: Present: EOMI, PERRL ENT: Present: mucous membranes dry - *Routine Neck Exam Present: supple. Absent: lymphadenopathy - *Routine Respiratory Exam Present: CTA bilaterally - *Routine Cardiovascular Exam Present: RRR, tachycardia - *Routine Abdominal Exam Present: soft, normoactive bowel sounds. Absent: tenderness - *Routine Extremities Exam Absent: cyanosis, clubbing, edema - *Routine Skin Exam Present: warm. Absent: rash - *Routine Neurological Exam Present: alert, oriented X3 uses a cane to assist with ambulation Assessment and Plan (1) Tachycardia Current visit: Yes Status: Acute Category: Medical Code(s): R00.0 - Tachycardia, unspecified (2) Dehydration Current visit: No Status: Acute Category: Medical Code(s): E86.0 - Dehydration (3) History of coronary artery disease Current visit: No Status: Acute Category: Medical Code(s): Z86.79 - Person
[2019-08-05 12:17] LABS: Basophils % 0.3 % (0.1-2.0); Eosinophils # 0.1 K/mm3 (0.0-0.4); Eosinophils % 1.1 % (0.1-12.0); Hematocrit 31.6 % (42.0-52.0); Hemoglobin 10.2 g/dL (14.1-18.0); Lymphocytes # 1.4 K/mm3 (0.7-4.5); Mean Corpuscular HGB Conc 32.4 g/dL (31.8-35.4); Mean Corpuscular Hemoglobin 28.2 pg (27.0-31.2); Monocytes # 0.6 K/mm3 (0.1-1.0); Monocytes % 7.2 % (1.7-9.3); Neutrophils # 6.7 K/mm3 (1.8-7.8); Neutrophils % 75.4 % (37.0-80.0); Platelet Count 544 K/mm3 (142-424); Red Blood Count 3.63 M/mm3 (4.60-6.20); Red Cell Distribution Width 14.7 % (11.5-17.5); White Blood Count 8.9 K/mm3 (4.8-10.8)
[2019-08-05 12:20] LABS: Chloride 95 mmol/L (98-107); Sodium 128 mmol/L (136-145)
[2019-08-05 12:21] LABS: Potassium 4.5 mmoL/L (3.5-5.1)
[2019-08-05 12:23] LABS: Alanine Aminotransferase 11 U/L (12-78); Albumin Level 2.1 g/dl (3.5-5.0); Albumin/Globulin Ratio 0.7 (1.1-1.8); Alkaline Phosphatase 67 U/L (38-126); Anion Gap 12.5 mEq/L (5-15); Aspartate Amino Transferase 13 U/L (17-59); Bilirubin,Total 0.4 mg/dl (0.2-1.3); Blood Urea Nitrogen 9 mg/dl (9-20); Carbon Dioxide 25 mmol/L (22.0-30.0); Creatinine Clearance Estimated 85 mL/min (50-200); Estimated Glomerular Filt Rate 88 ml/min (>60); GFR (African American) 106 ML/MIN (>60); Globulin 2.9 g/dL (1.3-3.2)
[2019-08-05 12:24] LABS: Calcium 7.6 mg/dl (8.4-10.2); Glucose 171 mg/dl (74-100)
[2019-08-05 12:26] LABS: Lactic Acid 2.5 mmol/L (0.7-2.1)
[2019-08-05 12:30] VITALS: BP 96/54; PULSE 92; RESP 16; O2SAT 98
--- NOTE | 2019-08-05 13:05 | HMH.PHAINT ---
MEDICATION RECONCILIATION COMPLETED ON PATIENT USING EXTERNAL FILL HISTORY FROM PHARMACY. -COLLIN DE OLIVEIRA, DEE DEED
[2019-08-05 14:02] LABS: Adenovirus F 40/41, stool Not Detected (NotDetected); Astrovirus Not Detected (NotDetected); Campylobacter Not Detected (NotDetected); Clostridium Difficile A/B, PCR Not Detected (NotDetected); Cryptosporidium Not Detected (NotDetected); Cyclospora Cayetanesis Not Detected (NotDetected); Entamoeba histolytica Not Detected (NotDetected); Enteroaggregative E coli Not Detected (NotDetected); Enteropathogenic E coli Not Detected (NotDetected); Enterotoxigenic E coli Not Detected (NotDetected); Giardia lamblia Not Detected (NotDetected); Microscopic, Urine URINE MICROSCOPIC (MICROSCOPIC); Norovirus Not Detected (NotDetected); Plesimonas Shigalloides, PCR Not Detected (NotDetected); Rotavirus A Not Detected (NotDetected); Salmonella, PCR Not Detected (NotDetected); Sapovirus Not Detected (NotDetected); Shiga-like toxin E coli Not Detected (NotDetected); Shigella Enterovasive E coli Not Detected (NotDetected); Vibrio Cholerae Not Detected (NotDetected); Vibrio, PCR Not Detected (NotDetected); Yersinia Entercolitica, PCR Not Detected (NotDetected)
[2019-08-05 14:06] LABS: Appearance,Urine CLEAR (Clear); Blood, Urine 2+ (Negative); Color,Urine YELLOW (Yellow); Glucose,Urine (UA) Negative (Negative); Ketones,Urine 2+ (Negative); Leukocyte Esterase,Urine Negative (Negative); Nitrate,Urine Negative (Negative); Protein,Urine Negative (Negative); Specific Gravity, Urine 1.025 (1.005-1.030); Urobilinogen,Urine 0.2 EU/dl (0.2)
[2019-08-05 14:09] LABS: Bilirubin,Urine Negative (Negative)
[2019-08-05 14:13] LABS: Bacteria,Urine Trace /lpf; Squamous Epithelial Cell,Urine Occasional #/hpf (0-5)
[2019-08-05 15:47] VITALS: BP 97/57; PULSE 97; RESP 18; TEMP 36.7; O2SAT 100
--- NOTE | 2019-08-05 15:49 | PC.NURSE ---
Patient admitted this shift with nausea/vomiting and dehydration, catherine not vomited since arrival and currently denies any nausea. He has had two loose dark red stools with mucus, diarrhea panel sent to lab awaiting results. Pt remains on RA, lungs CTA, denies any SOA or chest pain, receiving IV fluid for rehydration, no s/s of distress noted, vss, will continue to monitor.
[2019-08-05 16:03] LABS: Reflex Lactic Add Lactic Reflex
[2019-08-05 16:30] LABS: POC Glucose,Bedside 120 (70-110)
[2019-08-05 20:00] VITALS: BP 91/57; PULSE 98; RESP 16; TEMP 36.8; O2SAT 100
[2019-08-05 20:17] LABS: POC Glucose,Bedside 103 (70-110)
[2019-08-06] VITALS (7 sets, daily range): BP systolic 81–110; BP diastolic 47–67; PULSE 88–112; RESP 16–18; TEMP 36.7–37.1; O2SAT 96–100; BMI 21.5
--- NOTE | 2019-08-06 05:41 | PC.NURSE ---
shift summary, pt rested well t/o shift, had 3 episodes of loose stools earlier in the shift, denies nausea or vomiting
[2019-08-06 06:17] LABS: POC Glucose,Bedside 93 (70-110)
--- NOTE | 2019-08-06 08:53 | HMH.ACPN2 ---
Internal Medicine - PN: Subj *Date: 08/06/19 *Time: 08:53 Interval history: Patient seen and examined this AM. Further to his admission history, he states he has not been able to take any of his medications for the past month because he can not swallow them without geting sick. States he has continued to have bloody stools. When last seen by me in the office in May, he was doing well, appetite had improved and he had gained some weight. His symptoms began recurring about a month ago. Note that his current medications also include Humira injections [id number] and Mesalamine, which he has not been able to take. He continues to follow with Dr. Mcdaniels. He has had no vomiting since admission. Denies abdominal pain. Tolerating a few liquids. No fever Exam Vital signs and Labs for Last 24 Hours: Temp Pulse Resp BP Pulse Ox 98.0 F 92 H 16 81/51 L 97 08/06/19 08:00 08/06/19 08:00 08/06/19 08:00 08/06/19 08:00 08/06/19 08:00 Laboratory Results - last 24 hr 08/05/19 12:00: WBC 8.9, RBC 3.63 L, Hgb 10.2 L, Hct 31.6 L, MCV 87.0, MCH 28.2, MCHC 32.4, RDW 14.7, Plt Count 544 H, MPV 7.0 L, Neut % (Auto) 75.4, Lymph % (Auto) 16.0, [place] % (Auto) 7.2, Eos % (Auto) 1.1, Baso % (Auto) 0.3, Neut # (Auto) 6.7, Lymph # (Auto) 1.4, [place] # (Auto) 0.6, Eos # (Auto) 0.1, Baso # (Auto) 0.0 08/05/19 12:00: Sodium 128 L, Potassium 4.5, Chloride 95 L, Carbon Dioxide 25, Anion Gap 12.5, BUN 9, Creatinine 0.90, Estimated Creat Clear 85, Estimated GFR 88, Est GFR ( Amer) 106, Glucose 171 H, Calcium 7.6 L, Total Bilirubin 0.4, AST 13 L, ALT 11 L, Alkaline Phosphatase 67, Total Protein 5.0 L, Albumin 2.1 L, Globulin 2.9, Albumin/Globulin Ratio 0.7 L 08/05/19 12:00: Lactate 2.5 H 08/05/19 13:53: Urine Color Yellow, Urine Appearance Clear, Urine pH 6.0, Ur Specific Diagonal 1.025, Urine Protein Negative, Urine Glucose (UA) Negative, Urine Ketones 2+, Urine Blood 2+, Urine Nitrate Negative, Urine Bilirubin Negative, Urine Urobilinogen 0.2, Ur Leukocyte Esterase Negative, Urine WBC 3-5, Ur Squamous Epith Cells Occasional, Urine Bacteria Trace 08/05/19 13:53: Stl Aeromonas (PCR) Not detected, Stl C. cayetanensis PCR Not detected, Stool Rotavirus (PCR) Not detected, Stl Adenov F 40/41 PCR Not detected, Stool Astrovirus (PCR) Not detected, Stool Campylobacter PCR Not detected, Stl C.difficile Tox PCR Not detected, Stool Cryptosporidium PCR Not detected, Stl E.coli Shiga Tox PCR Not detected, Stool E coli O157 PCR Not detected, Stl Enterotoxigenic E PCR Not detected, Stool EPEC (PCR) Not detected, Stool EAEC (PCR) Not detected, Stl E. histolytica PCR Not detected, Stool Giardia Lamblia PCR Not detected, Stool Salmonella PCR Not detected, Stool Sapovirus (PCR) Not detected, Stl P. shigelloides PCR Not detected, Stl Shigella/EIEC PCR Not detected, St Y.enterocolitica PCR Not detected, Stool Vibrio (PCR) Not detected, Stl Vibrio cholerae PCR Not detected, Stl Norovirus GI/GII PCR Not detected 08/05/19 16:09: POC Glucose 120 H 08/05/19 16:12: Lactate 1.0 08/05/19 20:06: POC Glucose 103 08/06/19 06:09: POC Glucose 93 I & O for Last 24 hours: Intake & Output 08/03/19 08/04/19 08/05/19 08/06/19 11:59 11:59 11:59 11:59 Intake Total 4522 / 4522 Output Total 304 / 304 Balance 4218 / 4218 Weight 141 lb 5 oz 145 lb 5 oz Narrative: ALert and in NAD. Color is adequate. Lungs clear. RRR (tachycardia has resolved). Abdomen soft, NT. Few faint bowel sounds. Assessment and Plan (1) Ulcerative colitis Current visit: No Status: Acute Category: Medical Code(s): K51.90 - Ulcerative colitis, unspecified, without complications (2) Tachycardia Current visit: Yes Status: Acute Category: Medical Code(s): R00.0 - Tachycardia, unspecified (3) Dehydration Current visit: No Status: Acute Category: Medical Code(s): E86.0 - Dehydration (4) History of coronary artery disease Current visit: No Status: Acute Category: Medical Cod
[2019-08-06 09:34] LABS: Basophils % 0.4 % (0.1-2.0); Eosinophils % 1.7 % (0.1-12.0); Hematocrit 31.6 % (42.0-52.0); Hemoglobin 10.3 g/dL (14.1-18.0); Lymphocytes % 18.6 % (10-50); Mean Corpuscular HGB Conc 32.5 g/dL (31.8-35.4); Mean Corpuscular Hemoglobin 28.4 pg (27.0-31.2); Mean Corpuscular Volume 87.4 fl (80-94); Mean Platelet Volume 7.5 fl (7.4-10.4); Monocytes % 5.9 % (1.7-9.3); Neutrophils # 6.6 K/mm3 (1.8-7.8); Neutrophils % 73.4 % (37.0-80.0); Platelet Count 535 K/mm3 (142-424); Red Blood Count 3.61 M/mm3 (4.60-6.20); Red Cell Distribution Width 14.6 % (11.5-17.5)
[2019-08-06 09:35] LABS: Eosinophils # 0.2 K/mm3 (0.0-0.4); Lymphocytes # 1.7 K/mm3 (0.7-4.5); Monocytes # 0.5 K/mm3 (0.1-1.0)
[2019-08-06 11:29] LABS: POC Glucose,Bedside 123 (70-110)
--- NOTE | 2019-08-06 15:13 | PC.NURSE ---
PT IS RESTING IN BED WITH FAMILY AT BEDSIDE. ALERT AND ORIENTED X4. PT WAS ABLE TO TOLERATE DIABETIC DIET WHICH WAS TOMATO SOUP AND GRILLED CHEESE SANDWICH. PT TOLERATED 240 ML'S OF VANILLA GLUCERNA. CONTINUES TO HAVE LOOSE BLOODY STOOLS. PT WAS ABLE TO AMBULATE TO THE BATHROOM TO TAKE A SHOWER. LOW BP WAS REPORTED TO PCP THIS MORNING. NO NAUSEA/VOMITING THIS SHIFT. LUNG SOUNDS CLEAR. BOWEL SOUNDS HYPOACTIVE. ABDOMEN SOFT/NONTENDER. WILL CONTINUE TO MONITOR.
[2019-08-06 16:41] LABS: POC Glucose,Bedside 259 (70-110)
--- NOTE | 2019-08-06 17:31 | PC.NURSE ---
pt states he has had a total of 20 bowel movements this shift but most have them have been small.
[2019-08-06 21:07] LABS: POC Glucose,Bedside 317 (70-110)
--- NOTE | 2019-08-06 22:39 | XR_ITS ---
PROCEDURE: XR CHEST PORTABLE CLINICAL HISTORY: Chest Pain Heart disease the COMPARISON: No exams were available for comparison FINDINGS: The cardiomediastinal silhouette and pulmonary vascularity are within normal limits. No lobar consolidation or collapse. Vague density noted in the left mid lower lung zone and may be due to soft tissue attenuation and may be confirmed with follow-up PA and lateral chest. No acute bony abnormalities. IMPRESSION: Probably no acute finding. PA and lateral chest may confirm. Dictated by: Reno Luna MD 08/07/2019 08:00 Electronically signed by Reno Luna MD in [facility] 08/07/2019 08:00
--- NOTE | 2019-08-06 22:41 | ECG_ITS ---
APPROVED REPORT Exam: Resting ECG HR:102 bpm ECG Measurements Heart Rate 102 AXES AL 152 P 76 QRSd 78 QRS -44 QT 344 T 74 QTc 448 <Conclusion> Sinus tachycardia Left axis deviation Low voltage QRS Septal infarct, age undetermined Abnormal ECG Electronically signed by : Carlos Smith, 08/14/2019 17:17:07
--- NOTE | 2019-08-06 23:00 | PC.NURSE ---
2227- pt c/o of chest pain radiating to left arm 2229- Vital signs taken: 110/67 100 HR 100% 16 breaths per minute EKG performed by this nurse and ALECIA VALENTINO 2234- Troponin series and CXR ordered 2235-EKG taken down to ED and read by MD Quiros, NO ACUTE CHANGES 2240- sublingual nitro given to pt 2244- blood donor unit assistant for MD Batista paged 2248- MD Deng returned call, MD aware of all interventions Orders: Mag Hydrox/ Aluminum Hyd 30 ml PO ONCE Keep on chro 650 mg Acetaminophen Nitro 0.4 mg subling ONCE MD Deng advised against the aspirin per protocol due to pt's GI hx
[2019-08-06 23:30] LABS: Troponin I 0.07 ng/ml (0.00-0.034)
[2019-08-07] VITALS (37 sets, daily range): BP systolic 82–110; BP diastolic 44–69; PULSE 59–95; RESP 14–20; TEMP 36.4–36.8; O2SAT 94–100; BMI 21.5
--- NOTE | 2019-08-07 00:09 | PC.NURSE ---
Pt refused tylenol 650 mg PO. Pt stated he can't take it due to his reflux and pointed at his throat.
--- NOTE | 2019-08-07 02:30 | PC.NURSE ---
0010- Pt complained of continuous chest pain of 8. This RN notified MD Deng. MD advised to give pt ordered Phenergan, started a new order of Protonix 40 mg IV Daily, and to order cardiac enzymes for AM labs. 0140- Pt stated chest pain was at a 9 and asked this RN when will you all give me something for this pain? This RN offered the pt PRN acetaminophen, but he refused due to his gag reflex. MD Deng notified. Nitro Paste 1 inch ONCE and toradol 30 mg IV ONCE were ordered. 0230- Pt is sleeping in bed
[2019-08-07 02:40] LABS: Troponin I 0.07 ng/ml (0.00-0.034)
[2019-08-07 05:24] LABS: POC Glucose,Bedside 277 (70-110)
[2019-08-07 06:00] LABS: Basophils % 0.1 % (0.1-2.0); Eosinophils % 0.1 % (0.1-12.0); Lymphocytes # 0.7 K/mm3 (0.7-4.5); Lymphocytes % 10.9 % (10-50); Mean Corpuscular HGB Conc 31.7 g/dL (31.8-35.4); Mean Corpuscular Hemoglobin 27.9 pg (27.0-31.2); Mean Corpuscular Volume 88.2 fl (80-94); Mean Platelet Volume 7.1 fl (7.4-10.4); Monocytes # 0.3 K/mm3 (0.1-1.0); Monocytes % 5.1 % (1.7-9.3); Neutrophils # 5.3 K/mm3 (1.8-7.8); Neutrophils % 83.9 % (37.0-80.0); Platelet Count 404 K/mm3 (142-424); Red Blood Count 2.87 M/mm3 (4.60-6.20); Red Cell Distribution Width 14.7 % (11.5-17.5); White Blood Count 6.4 K/mm3 (4.8-10.8)
[2019-08-07 06:05] LABS: Hematocrit 25.3 % (42.0-52.0)
[2019-08-07 06:07] LABS: Anion Gap 6.2 mEq/L (5-15); Blood Urea Nitrogen 10 mg/dl (9-20); Calcium 7.1 mg/dl (8.4-10.2); Carbon Dioxide 26 mmol/L (22.0-30.0); Chloride 101 mmol/L (98-107); Creatine Kinase 109 U/L (55-170); Creatinine Clearance Estimated 112 mL/min (50-200); Estimated Glomerular Filt Rate 118 ml/min (>60); GFR (African American) 142 ML/MIN (>60); Glucose 234 mg/dl (74-100); Potassium 4.2 mmoL/L (3.5-5.1); Sodium 129 mmol/L (136-145)
[2019-08-07 06:18] LABS: CKMB Relative Index 0.7 U/L (0-4.0); Creatine Kinase MB 0.8 ng/ml (0.0-2.03); Troponin I 0.13 ng/ml (0.00-0.034)
--- NOTE | 2019-08-07 06:32 | PC.NURSE ---
MD Deng notified of pt's Hgb of 8.0 and Hct of 25.3. Also was made aware of pt's increased troponin of 0.13. No new orders.
--- NOTE | 2019-08-07 07:16 | PC.NURSE ---
Dr. Summers was beeped and i spoke with him about consult
--- NOTE | 2019-08-07 07:54 | PC.NURSE ---
called pre-op and spoke with Tanya about consult
--- NOTE | 2019-08-07 08:09 | HMH.ACPN2 ---
<Arin Alejandra - Last Filed: 08/07/19 08:09> Internal Medicine - PN: Subj *Date: 08/07/19 *Time: 08:09 Interval history: Patient had a miserable night. He ate a good dinner. Then developed chest pain around 10:30 PM. Meds did not help. His states he finally went to sleep about 1:30 in the morning. He denies chest pain this a.m. He has difficulty describing the chest pain. He states it was just pain. He was also somewhat short of breath. He denies abdominal pain, nausea and vomiting and reflux at the time. He states he did eat a good dinner consisting of roast beef. He ate it all. He continues to have bloody stools. He cannot account for how many. He feels he is voiding without difficulty. Laboratory data this morning reveals sodium of 129. Blood sugars have been elevated And is covered by sliding scale. Troponin I series reveal 0.07, 0.07 and 0.13 this a.m.. White blood cell count is 6400 this a.m. with a hemoglobin decreased to 8 and hematocrit of 25.3. Blood pressure remains low. He is afebrile. O2 sats are good. Exam Vital signs and Labs for Last 24 Hours: Temp Pulse Resp BP Pulse Ox 97.5 F L 80 18 90/59 L 100 08/07/19 08:00 08/07/19 08:00 08/07/19 08:00 08/07/19 08:00 08/07/19 08:00 Laboratory Results - last 24 hr 08/06/19 09:10: WBC 9.0, RBC 3.61 L, Hgb 10.3 L, Hct 31.6 L, MCV 87.4, MCH 28.4, MCHC 32.5, RDW 14.6, Plt Count 535 H, MPV 7.5, Neut % (Auto) 73.4, Lymph % (Auto) 18.6, [place] % (Auto) 5.9, Eos % (Auto) 1.7, Baso % (Auto) 0.4, Neut # (Auto) 6.6, Lymph # (Auto) 1.7, [place] # (Auto) 0.5, Eos # (Auto) 0.2, Baso # (Auto) 0.0 08/06/19 09:10: C-Reactive Protein 19.0 H 08/06/19 11:10: POC Glucose 123 H 08/06/19 16:28: POC Glucose 259 H 08/06/19 20:50: POC Glucose 317 H* 08/06/19 23:00: Troponin I 0.07 H 08/07/19 02:00: Troponin I 0.07 H 08/07/19 05:16: POC Glucose 277 H 08/07/19 05:39: WBC 6.4 D, RBC 2.87 L, Hgb 8.0 L D, Hct 25.3 L, MCV 88.2, MCH 27.9, MCHC 31.7 L, RDW 14.7, Plt Count 404, MPV 7.1 L, Neut % (Auto) 83.9 H, Lymph % (Auto) 10.9, [place] % (Auto) 5.1, Eos % (Auto) 0.1, Baso % (Auto) 0.1, Neut # (Auto) 5.3, Lymph # (Auto) 0.7, [place] # (Auto) 0.3, Eos # (Auto) 0.0, Baso # (Auto) 0.0 08/07/19 05:39: Sodium 129 L, Potassium 4.2, Chloride 101, Carbon Dioxide 26, Anion Gap 6.2, BUN 10, Creatinine 0.70 D, Estimated Creat Clear 112, Estimated GFR 118, Est GFR ( Amer) 142 D, Glucose 234 H, Calcium 7.1 L, Total Creatine Kinase 109, CK-MB (CK-2) 0.8, CK-MB (CK-2) Rel Index 0.7, Troponin I 0.13 H I & O for Last 24 hours: Intake & Output 08/04/19 08/05/19 08/06/19 08/07/19 11:59 11:59 11:59 11:59 Intake Total 4522 / 4522 3304 / 3304 Output Total 304 / 304 Balance 4218 / 4218 3304 / 3304 Weight 141 lb 5 oz 145 lb 5 oz - Constitutional no acute distress Comments: Appears not to feel well - Routine Chest/Breast/Axilla Exam Chest wall: Absent: tenderness - *Routine Respiratory Exam Present: CTA bilaterally (Anteriorly and posteriorly) - *Routine Cardiovascular Exam Present: RRR - *Routine Abdominal Exam Present: soft, normoactive bowel sounds. Absent: tenderness, distended, guarding - *Routine Extremities Exam Present: pulses intact. Absent: edema - *Routine Skin Exam Present: dry, pallor, warm - *Routine Neurological Exam Present: alert, oriented X3 - Routine Psychiatric Exam Comments: Frustrated and depressed. Assessment and Plan (1) Ulcerative colitis Current visit: No Status: Acute Category: Medical Code(s): K51.90 - Ulcerative colitis, unspecified, without complications (2) Tachycardia Current visit: Yes Status: Acute Category: Medical Code(s): R00.0 - Tachycardia, unspecified (3) Dehydration Current visit: No Status: Acute Category: Medical Code(s): E86.0 - Dehydration (4) History of coronary artery disease Current visit: No Status: Acute Category: Medical Code(s): Z86.79 - Personal history of
--- NOTE | 2019-08-07 09:13 | HMH.CNCARD ---
History of Present Illness Consult date: 08/07/19 Requesting physician: Cristobal Batista Consult reason: chest pain Chief complaint: chest pain Additional Medical History:: 1. Ulcerative colitis, moderate to severe by colonoscopy 03/2019 2. Diabetes mellitus, treated for about 10 years 3. History of tobacco use, [id number] history, discontinued approximately 2009 at the time of his heart attack 4. Family history of heart disease in both his mother in her mid 30s and his father in his late 50s (both were smokers) 5. Coronary artery disease A. History of myocardial infarction approximately 2009 with subsequent placement of [address] Desir at [facility] in [place], [place] 6. Hyperlipidemia 7. Hypertension History of present illness: 53-year-old white male admitted for nausea, vomiting, diarrhea and abdominal pain of one-week duration with history of ulcerative colitis diagnosed about 4 months ago. Reportedly patient has been unable to tolerate his home medications off and on for about a month and relates a 50 to 60 pound weight loss over the last 6 months. Last evening while at rest watching TV he developed substernal chest pain with radiation to the left shoulder but without diaphoresis, shortness of breath, nausea or vomiting. He relates it felt like his heart was racing but was reportedly told that his heart rate was within normal limits. His EKG shows sinus rhythm with no acute ST segment changes. Question old septal infarct noted. Cardiac enzymes were drawn overnight and were reported as 0.07, 0.07 and 0.13 this AM. Cardiology consulted for evaluation recommendations. Patient does relate his chest discomfort resolved after nitroglycerin paste was applied. He was able to sleep after symptoms improved. Patient relates a heart attack about 10 years ago with subsequently having 3 coronary stents placed by Dr. Desir at [facility] in [place], [place]. He has not seen Dr. Desir in several years and has not had any recent cardiac testing. He has been a diabetic for about 10 years and at the time of the heart attack he quit smoking. On admission to the hospital, his blood pressure noted to be low so his medications (including chronic use of aspirin and Plavix) have been held with IV fluids given for BP support. Patient does appear to be weak and oral mucosa is dry despite a net positive of 7 L of fluid during his admission with subsequent drop in his hemoglobin from 10-8. He does relate some blood in his stool intermittently over the past several months. His colonoscopy earlier this year by Dr. Mcdaniels was noted to show moderate to severe ulcerative colitis. [facility] History Medical History: Reports:: Coronary Artery Disease, Diabetes Mellitus Type 2, Hyperlipidemia, Hypertension, Myocardial Infarction (2009) Denies:: Cancer, Diabetes Mellitus Type 1, MRSA *Have you ever received a pneumonia vaccine?: No *Have you received a flu vaccine this season?: Yes Other Medical History: Reports: Hypothyroidism, Other (Ulcerative colitis). Denies: Arthritis Other Surgeries: Yes: Cardiac Catheterization, Colonoscopy, Coronary Stent (x2, 2009) Amputation: No - *Social History Educational Level: Completed High School Smoking Status: Former smoker Tobacco Type: cigarettes # Packs/Day (cigarettes): 1 #Yrs smoked (if former smoker): 18 Smoking End Date: 02/08/2009 Alcohol Intake: never Substance Use Type: denies use *Occupational Status:: employed Housing: house Household Members: spouse, children *Travel in the last 8 weeks: None Family Hx:: Coronary Artery Disease, Diabetes, Heart Attack, Hypertension Meds Home Medications Medication Instructions Recorded Confirmed Type Atorvastatin Calcium [Lipitor 80mg 80 mg PO HS 03/27/19 08/05/19 History Tab] Clopidogrel Bisulfate [Plavix 75mg 75 mg PO DAILY 03/27/19 08/05/19 History Tab] Glimepiride 4 mg PO BID 03/27/19 08/05/19 History Metformin H
--- NOTE | 2019-08-07 09:16 | CA_ITS ---
APPROVED REPORT EXAM: Comprehensive 2D, Doppler, and color-flow Echocardiogram Wilton Weaver: Ainsley Vo RVT Ht: 5 ft 8 in Wt: 145lbs BSA: 1.78 BP: 90/59 mmHg Indications: CP CAD EX SMOKER 2D Dimensions LVOT 2.01 cm (M/F) 1.5-2.5 M-Mode Dimensions RVDd 2.07 cm (0.9-2.6) LVDd 5.17 cm (3.5-5.7) LVDs 4.23 cm (3.5-5.7) IVSd 0.72 cm (0.6-1.1) PWd 0.71 cm (0.6-1.1) EF (Teich) 37.50% FS 18.20% EDV (Teich) 127.80 mL ESV (Teich) 79.90 mL Left Ventricle Technically difficult study because of the patient fact in poor acoustic windows. Repeat study with Definity contrast is recommended. Left atrium is mildly enlarged, left ventricle is normal size, mild concentric left ventricular hypertrophy, visually estimated ejection fraction approximately 40 to 45%, there is moderate hypokinesis involving the mid to distal septum and anterior apical wall. Diastolic parameters are inconclusive. Right Ventricle Right atrium and right ventricle are mildly enlarged with normal contractility. Aortic Valve Aortic valve is minimally thickened and calcified leaflet chordae display good mobility. There is no aortic stenosis or aortic insufficiency. Mitral Valve Mitral valve is grossly normal, there is mild mitral regurgitation. Tricuspid Valve Tricuspid valve is grossly normal, there is mild tricuspid regurgitation, tricuspid regurgitation jet velocity is inadequate for calculation of the right ventricular systolic pressure. Pulmonic Valve Pulmonic valve is poorly visualized. Great Vessels Aortic root is normal size. Pericardium No significant pericardial effusion noted. Conclusion 1. Technically difficult study because of the patient factors and poor acoustic windows. Repeat study with Definity contrast is recommended. 2. Mildly enlarged left atrium, normal left ventricular size, mild concentric left ventricular hypertrophy, visually estimated ejection fraction of 40 to 45% as described above with segmental wall motion abnormalities. Diastolic parameters are inconclusive. 3. Mildly enlarged right ventricle with normal contractility. 4. Mild mitral and tricuspid regurgitation. 5. No significant pericardial effusion noted. Electronically signed by : Suhail Krishnan, 08/15/2019 18:54:10
--- NOTE | 2019-08-07 09:56 | CT_ITS ---
PROCEDURE: CT ABDOMEN PELVIS W CON CLINICAL INDICATION: N/V, anemia, history of ulverative colitis COMPARISON: CT ABDOMEN PELVIS W CON from 04/24/2019 TECHNIQUE: IV Contrast: 75ML OPTIRAY 350 Oral Contrast 20ml Gastroview Axial images obtained with sagittal and coronal reformats. All CT scans at the facility use one or more dose reduction, viz: automated exposure control, ma/kV adjustment per patient size (including targeted exams where dose is matched to indication, i.e. head), or iterative reconstruction technique. FINDINGS: LOWER THORAX: Coronary artery calcifications ABDOMEN & PELVIS: The liver, gallbladder, spleen, adrenal glands, and pancreas have an unremarkable appearance. No renal or ureteral calculi. No hydronephrosis. No evidence of appendicitis. There is diffuse mucosal thickening of the entire colon. No abscess. There is questionable mucosal thickening of the stomach and duodenum. Gas density noted within the transverse portion of the duodenum which may merely represent air trapped within the mucosal folds. Pneumatosis would be included in the differential diagnosis. No free air is evident. No acute bony anomalies. The cecum is slightly distended. The colon is otherwise nondistended. IMPRESSION: 1. Mild diffuse colonic thickening consistent with colitis. No evidence of pneumatosis of the colon. 2. Mucosal thickening versus nondistention of the stomach and duodenum with questionable pneumatosis of the duodenum versus air trapped within the mucosal folds. Dictated by: Reno Luna MD 08/08/2019 07:31 Electronically signed by Reno Luna MD in [facility] 08/08/2019 07:31
[2019-08-07 12:19] LABS: POC Glucose,Bedside 190 (70-110)
--- NOTE | 2019-08-07 14:50 | PC.NURSE ---
PT to preop at this time-1440.
--- NOTE | 2019-08-07 15:53 | HMH.PROC ---
[facility] Procedure Note Procedure Note:: Upper Endoscopy Procedure Report: Esophagogastroduodenoscopy with cold biopsies and TTS balloon dilation Endoscopost: Savage Mcdaniels II, MD Referring Physician: Humza Batista MD Date of Procedure: August 07, 2019 Equipment: Olympus GIF 180 standard upper endoscope Sedation: MAC sedation Indications: Mr. Fountain is a 53-year-old gentleman with moderate to severe left-sided ulcerative colitis. He did have a CAT scan in March 2019 showing thickening of the left colon and rectum consistent with proctocolitis. He did have a positive ASCA IgA antibody but a negative p-ANCA. He had low iron levels. He was placed on prednisone 60 mg and a previous. The patient return for follow-up (Ayesha LEWIS) on May 15, 2019. We discussed Rosemary at that time. The patient now is admitted with nausea and vomiting. He still has symptoms of colitis. The patient does have abdominal pain, diarrhea. He has lost nearly 60 pounds. He has not had a repeat CAT scan. His colonoscopy with ok on April 03, 2019 was to the hepatic flexure. The patient's blood work now shows hemoglobin 8.0/hematocrit 25.3. His C-reactive protein was 19.0. His amylase 29 and lipase 146 were normal. He did have hyponatremia. Procedure: Prior to the procedure, a history and physical exam was performed, and patient's medications and allergies were reviewed. The risks, benefits and alternatives of the sedation and procedure were discussed with the patient. All questions were answered and informed consent was obtained. The patient was brought to the procedure room. Patient identification and proposed procedure were verified by the physician and the nurse. The patient was placed in a left lateral decubitus position and the scope was passed under direct vision. Throughout the procedure, the patient's blood pressure, pulse, and oxygen saturations were monitored continuously. The upper GI endoscopy was accomplished without difficulty. The patient tolerated the procedure well. Findings: The scope was passed directly into the upper esophagus and advanced to the third portion of the duodenum. The post bulbar duodenum had some mild chronic duodenitis of the first portion. Cold biopsies were obtained. The scope was withdrawn through a normal duodenal bulb and pylorus into the stomach. There was mild reactive gastropathy of the antrum and body. The remainder of the antrum, body and fundus of the stomach were grossly normal. Upon retroflexion there was a small 1 to 2 cm hiatal hernia. 2 biopsies were taken in the antrum and along the lesser curvature for histology to rule out gastritis and/or H pylori. The scope was then withdrawn into the esophagus. There was a distal Schatzki's ring. This was dilated to 20 mm with a TTS hydrostatic balloon. There was no evidence of reflux esophagitis or Llamas's. The remainder of the esophageal mucosa was normal. Impression: 1. Schatzki's ring dilated to 20 mm 2. Reactive gastropathy and peptic duodenitis Plan: I do not feel that the endoscopic findings explain the clinical severity of the patient's symptoms. I do suspect that this is Crohn's colitis rather than ulcerative colitis. Also, based on the fact that he has markers for Crohn's (positive ASCA IgA antibody) and colonoscopy was to the hepatic flexure, I would recommend CT enterography or CT scan of the abdomen and pelvis with oral contrast. I would like to rule out any sort of small bowel obstructive process. I do feel that the patient will need more aggressive induction treatment and maintenance of remission treatment for his Crohn's disease. As long as his TB Gold test and hepatitis B surface antigen/core antibody was negative (negative by labs in April 2019), I would recommend that we go ahead and proceed with Rosemary. I would recommend present therapy with hydrocortisone or Solu-Medrol to then transition to oral prednisone.
--- NOTE | 2019-08-07 15:59 | PC.NURSE ---
Pt is down for egd still at this time. Has received one unit of blood this am. Awaiting pt to return to floor at this time. Did make THOMAS Chowdary aware of pts low bps this am as well and he didn't want to order anything in addition at that time
[2019-08-07 17:20] LABS: POC Glucose,Bedside 127 (70-110)
--- NOTE | 2019-08-07 17:40 | HMH.CONS ---
*Admission Date: 08/05/19 *Reason for consult:: N/V/ulcerative colitis *History of present illness: This is a 53-year-old male with a past medical history of diabetes, hypertension, coronary artery disease and an MT in 2009. He was also diagnosed with ulcerative colitis several months ago by Dr. Mcdaniels. He was having some diarrhea with blood in it and CT scan showed colitis of the interval from splenic flexure to the rectum. He underwent colonoscopy with Dr. Mcdaniels at that time which showed moderate to severe left-sided ulcerative colitis. He was started on steroids and mesalamine but was having trouble keeping his medications down. I saw him for a virtual visit and due to the struggle with nausea and vomiting started him on Zofran [id number] and his reports that he had improvement on that medication and was able to eat and drink again started to gain a little weight back. He saw Dr. Mcdaniels for a telemedicine visit few weeks after that and was doing well. He started Humira for ulcerative colitis on June 04 and has been getting injections every 2 weeks. His last injection was 1 week ago. This past month the patient has developed more nausea and vomiting and increased gagging reflex. He has been unable to take most of his medications over the course the past month including the mesalamine and found that he has had a worsening of his diarrhea and nausea and vomiting. Over the past week it got progressively worse. He denies any fever chills but over the course of several months he has lost 60 pounds. He was admitted to this hospital over the weekend for similar symptoms and was found to be dehydrated, anemic and hypotensive. His hemoglobin was as low as 8 and he has required blood transfusion. He did have a CRp of 19 GI has been consulted and as he also developed some chest pain, cardiology has been consulted as well. On exam, the patient appears fatigued and pale. His abdominal exam is benign however. He denied an increase in his blood in his bowel movements but reports that he usually has a little bit with every bowel movement. He denies any melena. He denies any hematemesis. [facility] History Medical History: Reports:: Coronary Artery Disease, Diabetes Mellitus Type 2, Hyperlipidemia, Hypertension, Myocardial Infarction (2009) Denies:: Cancer, Diabetes Mellitus Type 1, MRSA *Have you ever received a pneumonia vaccine?: No *Have you received a flu vaccine this season?: Yes Other Medical History: Reports: Hypothyroidism, Other (Ulcerative colitis). Denies: Arthritis Other Surgeries: Yes: Cardiac Catheterization, Colonoscopy, Coronary Stent (x2, 2009) Amputation: No - *Social History Educational Level: Completed High School Smoking Status: Former smoker Tobacco Type: cigarettes # Packs/Day (cigarettes): 1 #Yrs smoked (if former smoker): 18 Smoking End Date: 02/08/2009 Alcohol Intake: never Substance Use Type: denies use *Occupational Status:: employed Housing: house Household Members: spouse, children *Travel in the last 8 weeks: None Family Hx:: Coronary Artery Disease, Diabetes, Heart Attack, Hypertension Review of Systems - Constitutional Reports anorexia, Reports fatigue, Reports weakness, Reports weight loss - Eyes Denies blurry vision, Denies discharge, Denies pain - ENT Denies abnormal hearing, Denies dizziness, Denies pain with swallowing - *Cardiovascular Reports chest pain, Denies shortness of breath, Denies rapid, pounding, or irregular heartbeat - *Respiratory Denies chest congestion, Denies shortness of breath, Denies wheezing - *Gastrointestinal Reports change in bowel habits, Reports loose stools, Reports bright, red blood in stools, Reports nausea, Reports vomiting, Denies constipation, Denies heartburn, Denies incontinent of stools, Denies vomiting blood, Denies black, tarry stools - *Genitourinary Denies difficulty urinating, Denies blood in urine, Denies urinary frequency - *Neurologic Reports weakn
--- NOTE | 2019-08-07 18:19 | PC.NURSE ---
Spoke with Dr. Mcdaniels and he has ordered a low residue diet post ct scan and also increased solu medrol to 60 mg q 8 hrs IV. Will cont to mx. VSS at this time. Has had approx 4 loose stools this shift shift that have been bloody. Dr. Membreno has also ordered to do heart cath tomorrow.
--- NOTE | 2019-08-07 19:18 | PC.NURSE ---
report given to mina
[2019-08-07 23:51] LABS: POC Glucose,Bedside 295 (70-110)
[2019-08-08] VITALS (24 sets, daily range): BP systolic 80–111; BP diastolic 51–66; PULSE 59–92; RESP 14–20; TEMP 36.4–37; O2SAT 98–100; BMI 23.0
--- NOTE | 2019-08-08 | IR_ITS ---
APPROVED REPORT Patient Location: Inpatient PROCEDURES Left heart catheterization Left ventriculogram Selective coronary angiogram INDICATION Acute non-ST elevation myocardial infarction, Known coronary artery disease Informed consent was obtained prior to the procedure. COMPLICATIONS None Estimated Blood Loss: less than 10 ml TECHNIQUE One percent lidocaine used to anesthetize the right anterior aspect of the wrist. The right radial artery was accessed via the Seldinger technique. A 6 [place] sheath was placed in the right radial artery. 2.5 mg of verapamil, 800 mcg of nitroglycerin, 1mg Lidocaine were given through the arterial sheath. The trap catheter was also used to perform left heart catheterization, left ventriculogram and selective coronary angiogram. At the end of the procedure the sheath was removed good hemostasis was achieved using Traclet band, patient was transferred to the postop holding area in stable condition. ANGIOGRAPHIC RESULTS The left main artery Normal The left anterior descending artery Has proximal 40% stenosis then proximally occluded. The midportion fills via septal collaterals from the right coronary artery The circumflex artery Nondominant yet still large vessel with a stent in the proximal segment. Which has a concentric 30% stenosis. At the distal portion of the stent is a large 3 mm obtuse marginal artery which bifurcates from the stent. This large obtuse marginal artery has an ostial 90% stenosis The right coronary artery Is a large dominant vessel and has proximal 40% stenoses with mid vessel 50% stenosis and a focal 90% concentric stenosis followed by an additional 40 to 50% stenosis. The posterior descending and posterior lateral branches are large The RODRÍGUEZ ventriculogram reveals Preserved at 55% The left ventricular end-diastolic pressure 10 mmHg IMPRESSION Severe three-vessel coronary disease as described above Preserved ejection fraction Normal left ventricular end-diastolic pressure PLAN 1. Patient will be referred for coronary artery bypass surgery Electronically signed by : Justin Membreno, 08/08/2019 11:50:40
[2019-08-08 03:44] LABS: Hematocrit 30.1 % (42.0-52.0)
[2019-08-08 03:47] LABS: Hemoglobin 10.1 g/dL (14.1-18.0)
--- NOTE | 2019-08-08 04:36 | PC.NURSE ---
A&OX4. PT TOLERATING RA WELL THIS SHIFT. PT X1 ASSIST IN ROOM, USING BEDSIDE COMMODE. PT HAS CONTINUED TO HAVE LIQUID BM THIS SHIFT, WITH BRIGHT RED BLOOD PRESENT IN STOOL, STRONG ODOR NOTED. PT TOLERATED 1 UNIT OF BLOOD THIS SHIFT. PT HAS HAD NO C/O NA/VO, OR PAIN THIS SHIFT, BUT HAS ONLY STATED THAT HE FEELS VERY WEAK AND TIRED. PT HAS TOLERATED NPO DIET WELL SINCE MIDNIGHT. AT BEDSIDE. NO FURTHER COMPLAINTS, VSS WILL CONTINUE TO MONITOR.
[2019-08-08 05:40] LABS: POC Glucose,Bedside 179 (70-110)
[2019-08-08 06:50] LABS: Chloride 107 mmol/L (98-107); Potassium 4.5 mmoL/L (3.5-5.1); Sodium 131 mmol/L (136-145)
[2019-08-08 06:53] LABS: Blood Urea Nitrogen 10 mg/dl (9-20); Creatinine Clearance Estimated 105 mL/min (50-200); Estimated Glomerular Filt Rate 101 ml/min (>60); GFR (African American) 122 ML/MIN (>60)
[2019-08-08 06:54] LABS: Anion Gap 3.5 mEq/L (5-15); Calcium 7.4 mg/dl (8.4-10.2); Carbon Dioxide 25 mmol/L (22.0-30.0); Glucose 171 mg/dl (74-100)
--- NOTE | 2019-08-08 07:29 | HMH.ACPN2 ---
<Arin Alejandra - Last Filed: 08/08/19 07:29> Internal Medicine - PN: Subj *Date: 08/08/19 *Time: 07:29 Interval history: Patient had a better night last night. He did sleep. His confirms this. He denies any further chest discomfort. He is breathing without difficulty. He had a sandwich yesterday p.m. without nausea or vomiting. Does not recall having difficulty with swallowing. He has had fewer stools. Is up to the bedside commode. Observed stool this morning which appeared watery/loose with pink tinge surrounding. Patient states he is voiding. Laboratory data this morning: Sodium has improved to 131, potassium 3.5. BUN 10 with a creatinine of 0.8. After 2 units of packed red blood cells at 3:35 AM hemoglobin was 10.1 and hematocrit 30.1. Echo and CT of the abdomen results are pending. He is n.p.o. for cardiac cath today. Exam Vital signs and Labs for Last 24 Hours: Temp Pulse Resp BP Pulse Ox 97.7 F 73 17 94/53 L 100 08/08/19 04:47 08/08/19 04:47 08/08/19 04:47 08/08/19 04:47 08/08/19 04:47 Laboratory Results - last 24 hr 08/07/19 08:37: Blood Type B Positive, Antibody Screen Negative, Crossmatch (AHG) See Detail 08/07/19 12:10: POC Glucose 190 H 08/07/19 16:49: POC Glucose 127 H 08/07/19 23:36: POC Glucose 295 H 08/08/19 03:35: Hgb 10.1 L D, Hct 30.1 L 08/08/19 05:25: POC Glucose 179 H 08/08/19 06:15: Sodium 131 L, Potassium 4.5, Chloride 107, Carbon Dioxide 25, Anion Gap 3.5 L, BUN 10, Creatinine 0.80, Estimated Creat Clear 105, Estimated GFR 101, Est GFR ( Amer) 122, Glucose 171 H, Calcium 7.4 L I & O for Last 24 hours: Intake & Output 08/05/19 08/06/19 08/07/19 08/08/19 11:59 11:59 11:59 11:59 Intake Total 4522 / 4522 3304 / 3304 1852 / 1852 Output Total 304 / 304 0 / 0 Balance 4218 / 4218 3304 / [id number] Weight 141 lb 5 oz 145 lb 5 oz 155 lb 5 oz Microbiology Reports for the Last 24 Hours: Microbiology 08/05/19 12:00 Blood Blood Culture - Preliminary NO GROWTH AFTER 48 HOURS 08/05/19 12:00 Blood Blood Culture - Preliminary NO GROWTH AFTER 48 HOURS - Constitutional no acute distress - *Routine Respiratory Exam Present: CTA bilaterally (Anteriorly and posteriorly) - *Routine Cardiovascular Exam Comments: Audible premature beats. Monitor showing sinus rhythm with PACs some in bigeminal rhythm - *Routine Abdominal Exam Present: soft, normoactive bowel sounds. Absent: tenderness - *Routine Extremities Exam Absent: edema - *Routine Neurological Exam Present: alert, oriented X3 Assessment and Plan (1) Ulcerative colitis Current visit: No Status: Acute Category: Medical Code(s): K51.90 - Ulcerative colitis, unspecified, without complications (2) Tachycardia Current visit: Yes Status: Acute Category: Medical Code(s): R00.0 - Tachycardia, unspecified (3) Dehydration Current visit: No Status: Acute Category: Medical Code(s): E86.0 - Dehydration (4) History of coronary artery disease Current visit: No Status: Acute Category: Medical Code(s): Z86.79 - Personal history of other diseases of the circulatory system (5) Nausea and vomiting Current visit: No Status: Acute Category: Medical Code(s): R11.2 - Nausea with vomiting, unspecified (6) Type 2 diabetes mellitus Current visit: No Status: Acute Category: Medical Code(s): E11.9 - Type 2 diabetes mellitus without complications (7) Weight loss Current visit: No Status: Acute Category: Medical Code(s): R63.4 - Abnormal weight loss (8) Dysphagia Current visit: Yes Status: Acute Category: Medical Code(s): R13.10 - Dysphagia, unspecified (9) Chest pain Current visit: Yes Status: Acute Category: Medical Code(s): R07.9 - Chest pain, unspecified (10) Anemia Current visit: Yes Status: Acute Category: Medical Code(s): D64.9 - Anemia, unspec
--- NOTE | 2019-08-08 08:27 | HMH.PNCARD ---
Subjective Date: 08/08/19 Time: 08:27 Principal diagnosis: Non-ST elevation W[place] Interval history: 53-year-old white male in bed in no acute distress. EGD yesterday revealed a Schatzki's ring which was dilated and mild gastropathy. Patient had no chest pain overnight. Echo report official results are still pending Exam Vital signs and Labs for Last 24 Hours: Temp Pulse Resp BP Pulse Ox 97.6 F 61 18 92/64 L 100 08/08/19 07:47 08/08/19 07:47 08/08/19 07:47 08/08/19 07:47 08/08/19 07:47 Laboratory Results - last 24 hr 08/07/19 08:37: Blood Type B Positive, Antibody Screen Negative, Crossmatch (AHG) See Detail 08/07/19 12:10: POC Glucose 190 H 08/07/19 16:49: POC Glucose 127 H 08/07/19 23:36: POC Glucose 295 H 08/08/19 03:35: Hgb 10.1 L D, Hct 30.1 L 08/08/19 05:25: POC Glucose 179 H 08/08/19 06:15: Sodium 131 L, Potassium 4.5, Chloride 107, Carbon Dioxide 25, Anion Gap 3.5 L, BUN 10, Creatinine 0.80, Estimated Creat Clear 105, Estimated GFR 101, Est GFR ( Amer) 122, Glucose 171 H, Calcium 7.4 L I & O for Last 24 hours: Intake & Output 08/05/19 08/06/19 08/07/19 08/08/19 11:59 11:59 11:59 11:59 Intake Total 4522 / 4522 3304 / 3304 1852 / 1852 Output Total 304 / 304 Balance 4218 / 4218 3304 / 3304 1851 / 1851 Weight 141 lb 5 oz 145 lb 5 oz 155 lb 5 oz Microbiology Reports for the Last 24 Hours: Microbiology 08/05/19 12:00 Blood Blood Culture - Preliminary NO GROWTH AFTER 48 HOURS 08/05/19 12:00 Blood Blood Culture - Preliminary NO GROWTH AFTER 48 HOURS - *Routine Respiratory Exam Present: CTA bilaterally. Absent: accessory muscle use, rales, rhonchi, wheezes - *Routine Cardiovascular Exam Present: RRR. Absent: murmur, gallop, rubs - *Routine Neurological Exam Present: alert, oriented X3, moving all extremities Progress Note: A&P (1) Ulcerative colitis Status: Acute Current Visit: No (2) Tachycardia Status: Acute Current Visit: Yes (3) Dehydration Status: Acute Current Visit: No (4) History of coronary artery disease Status: Acute Current Visit: No (5) Nausea and vomiting Status: Acute Current Visit: No (6) Type 2 diabetes mellitus Status: Acute Current Visit: No (7) Weight loss Status: Acute Current Visit: No (8) Dysphagia Status: Acute Current Visit: Yes (9) Chest pain Status: Acute Current Visit: Yes (10) Anemia Status: Acute Current Visit: Yes (11) NSTEMI (non-ST elevated myocardial infarction) Status: Acute Current Visit: Yes (12) CAD (coronary artery disease) Status: Acute Current Visit: Yes (13) History of coronary artery stent placement Status: Acute Current Visit: Yes (14) Hyponatremia Status: Acute Current Visit: Yes Assessment and Plan for All Diagnoses:: Plan?proceed with left heart catheterization today with further recommendations to follow. Aspirin and Plavix have been held at this time due to the patient's anemia and heme positive stools. Patient did receive blood yesterday with hemoglobin of 10.1 this morning.
[2019-08-08 09:32] LABS: Troponin I 0.23 ng/ml (0.00-0.034)
--- NOTE | 2019-08-08 16:55 | PC.NURSE ---
ATTEMPTED TO CALL REPORT TO [address] DOCUMENT REVIEWER ASKED WHICH ROOM PT WAS GOING TO, TOLD HER 619, DOCUMENT REVIEWER THEN TRANSFERRED ME TO ANOTHER LINE IN WHICH DID NOT ANSWER. WILL ATTEMPT TO CALL AGAIN.
--- NOTE | 2019-08-08 17:25 | PC.NURSE ---
ATTEMPTED TO CALL REPORT TO . YAZAN ALSTON IS TO CALL THIS EXT. BACK WHEN ABLE.
[2019-08-08 17:27] LABS: POC Glucose,Bedside 188 (70-110)
--- NOTE | 2019-08-08 19:25 | PC.NURSE ---
attempted to call report to [facility] again. spoke with annette Adam. she stated the room was mistakenly marked as cleaned and it is not. states restaurant shift leader will call back. told warehouse checker yasmin who stated to preet Boogie RN on restaurant shift leader to call in an hour. pt has done well since cath procedure. pt is awaiting to be transferred.
--- NOTE | 2019-08-08 20:10 | PC.NURSE ---
CALLED URI RYAN, NURSE TO TAKE REPORT. SHE IS UNABLE TO TAKE REPORT AT THIS TIME, SUPPOSED TO CALL BACK IN 15 MINUTES.
[2019-08-08 21:26] LABS: POC Glucose,Bedside 144 (70-110)
--- NOTE | 2019-08-08 22:29 | PC.NURSE ---
GAVE REPORT TO URI RYAN AT [facility] @ 2015. PT RESTING IN BED, NO COMPLAINTS AT THIS TIME. FAMILY AT BEDSIDE. BROWNDonte TO GET PT AT 2117. PT LEAVING THIS FACILITY WITH NO COMPLAINTS.
[2019-08-09 04:39] LABS: Covid-19 Nasal PCR Sendout Lex NOT DETECTED
--- NOTE | 2019-08-10 08:44 | HMH.DCSUM ---
General - General Admission date:: 08/05/19 <Cristobal Batista - 08/30/19 13:24> 08/05/19 <AileenEvelyn - 08/10/19 08:55> Discharge date: 08/08/19 <AileenEvelyn - 08/10/19 08:55> HPI HPI: 53 year old male who appears older than stated age presented to office of [facility] with a 1 week history of nausea, vomiting, diarrhea and some abdominal pain. Patient stated everything he tried to eat made him sick. He had had problems tolerating his medications as well. He had noted a small amount of blood in a few of his bowel movements. He denied fever and chills, he had had some weight loss. He had had no recent travel. He was diagnosed with ulcerative colitis about [address] Mcdaniels. <AileenEvelyn - 08/10/19 08:55> Hospital Course Hospital Course: Patient was admitted [facility] for further evaluation and treatment. He was given a bolus of normal saline and started on a clear liquid diet. Labs were ordered. He did admit to not being able to take his medications for a month prior to admission. He stated he could not swallow them without getting sick. He continued to have bloody stools after admission. He had continued to follow with Dr. Mcdaniels, but had stopped taking his Humira injections and mesalamine. He was able to tolerate a few liquids and his diet was advanved. His stool panel was negative. He was started on IV steroids and sliding scale insulin. Dr. Mcdaniels was consulted. He had a chest x-ray which showed nothing acute. He began having chest pain and troponins were ordered. They were elevated. Cardiology was consulted. His hemoglobin did decrease to 8 and his hematocrit decreased to 25.3. His blood pressure also dropped as well, therefore he was given 2 units of packed red blood cells with improvement in his BP and H&H. Dr. Mcdaniels saw the patient and performed an EGD with cold biopsies and TTS balloon dilatation. He did find a Schatzki's ring, which he dilated to 20 mm, and reactive gastropathy with peptic duodenitis. He suspected that the patient had Crohn's colitis rather than ulcerative colitis. He recommended CT enterography or CT scan of the abdomen and pelvis with oral contrast and that the patient proceed with Humira treatment. He also recommended hydrocortisone or Solu-Medrol therapy with transition to oral prednisone. The patient had an abdominal pelvic CT which showed mild diffuse colonic thickening consistent with colitis. There was mucosal thickening versus nondistention of the stomach and duodenum with questionable pneumatosis of the duodenum versus air trapped within mucosal folds. He was also seen in consultation by cardiology and they wanted to proceed with a heart cath. They ordered an echo as well. The patient's heart cath showed severe three-vessel coronary disease with a preserved ejection fraction. The patient had to be emergently transferred for coronary artery bypass surgery. <Evelyn Gallagher - 08/10/19 08:55> Objective Vital signs: Temp Pulse Resp BP Pulse Ox 98.6 F 73 18 102/64 L 100 08/08/19 19:58 08/08/19 19:58 08/08/19 19:58 08/08/19 19:58 08/08/19 19:58 <Cristobal Batista - 08/30/19 13:24> Temp Pulse Resp BP Pulse Ox 98.6 F 73 18 102/64 L 100 08/08/19 19:58 08/08/19 19:58 08/08/19 19:58 08/08/19 19:58 08/08/19 19:58 <Evelyn Gallagher - 08/10/19 08:55> Narrative: - Constitutional no acute distress - *Routine Respiratory Exam Present: CTA bilaterally (Anteriorly and posteriorly) - *Routine Cardiovascular Exam Comments: Audible premature beats. Monitor showing sinus rhythm with PACs some in bigeminal rhythm - *Routine Abdominal Exam Present: soft, normoactive bowel sounds. Absent: tenderness - *Routine Extremities Exam Absent: edema - *Routine Neurological Exam Present: alert, oriented X3 <Evelyn Gallagher - 08/10/19 08:55> Results Labs on day o
== END 2019-08-08 21:18 | disposition short-term general hospital (02) ==
PROVIDERS: Internal Medicine; Internal Medicine Gastroenterology; Physician Assistant; Admitting Provider Family Medicine; PCP Family Medicine; Visit Provider Family Medicine
PROC: 0DJ08ZZ Inspection of Upper Intestinal Tract, Via Natural or Artificial Opening Endoscopic (ICD-10-PCS; CPT 43235; principal; 2019-08-07 12:30)
DX: E86.0 Dehydration (principal); K51.90 Ulcerative colitis, unspecified, without complications; I21.4 Non-ST elevation (NSTEMI) myocardial infarction; I25.10 Atherosclerotic heart disease of native coronary artery without angina pectoris; I11.0 Hypertensive heart disease with heart failure; I25.2 Old myocardial infarction; Z95.5 Presence of coronary angioplasty implant and graft; E11.9 Type 2 diabetes mellitus without complications; E03.9 Hypothyroidism, unspecified; Z79.84 Long term (current) use of oral hypoglycemic drugs; Z79.82 Long term (current) use of aspirin; Z79.02 Long term (current) use of antithrombotics/antiplatelets; Z79.899 Other long term (current) drug therapy; K22.2 Esophageal obstruction; K29.80 Duodenitis without bleeding; K31.9 Disease of stomach and duodenum, unspecified
CPT/HCPCS: 43249; 43239; 36415; 71045; 74177; 80048; 80053; 81001; 82550; 82553; 82962; 83605; 84484; 85014; 85018; 85025; 86140; 86850; 87040; 87507; 93005; 93306; 93458; 99152; C1726; C1769; G0378; J1644; J2405; P9016; Q9967; U0004

== ENCOUNTER 2019-09-04 08:56 | Outpatient (CLI) | payer OTHER, SELFPAY ==
[2019-09-04] VITALS (9 sets, daily range): BP systolic 86–113; BP diastolic 48–70; PULSE 100–112; RESP 20; TEMP 37.1; O2SAT 99–100; BMI 22.6
[2019-09-04 09:25] LABS: Basophils % 0.5 % (0.1-2.0); Eosinophils # 0.1 K/mm3 (0.0-0.4); Eosinophils % 1.2 % (0.1-12.0); Hematocrit 33.9 % (42.0-52.0); Hemoglobin 10.8 g/dL (14.1-18.0); Lymphocytes % 15.1 % (10-50); Mean Corpuscular HGB Conc 31.9 g/dL (31.8-35.4); Mean Corpuscular Hemoglobin 30.4 pg (27.0-31.2); Mean Corpuscular Volume 95.2 fl (80-94); Mean Platelet Volume 7.4 fl (7.4-10.4); Monocytes # 0.7 K/mm3 (0.1-1.0); Neutrophils # 5.1 K/mm3 (1.8-7.8); Neutrophils % 73.3 % (37.0-80.0); Platelet Count 479 K/mm3 (142-424); Red Blood Count 3.56 M/mm3 (4.60-6.20); Red Cell Distribution Width 17.3 % (11.5-17.5); White Blood Count 6.9 K/mm3 (4.8-10.8)
[2019-09-04 09:32] LABS: Chloride 100 mmol/L (98-107); Potassium 4.5 mmoL/L (3.5-5.1); Sodium 134 mmol/L (136-145)
[2019-09-04 09:34] LABS: Alanine Aminotransferase 22 U/L (12-78); Alkaline Phosphatase 59 U/L (38-126); Anion Gap 12.5 mEq/L (5-15); Aspartate Amino Transferase 16 U/L (17-59); Bilirubin,Total 0.3 mg/dl (0.2-1.3); Blood Urea Nitrogen 14 mg/dl (9-20); Carbon Dioxide 26 mmol/L (22.0-30.0); Creatinine Clearance Estimated 166 mL/min (50-200); Estimated Glomerular Filt Rate 173 ml/min (>60); GFR (African American) 210 ML/MIN (>60)
[2019-09-04 09:35] LABS: Albumin Level 2.9 g/dl (3.5-5.0); Albumin/Globulin Ratio 0.9 (1.1-1.8); Calcium 8.5 mg/dl (8.4-10.2); Globulin 3.1 g/dL (1.3-3.2); Glucose 279 mg/dl (74-100)
[2019-09-04 09:40] LABS: C-Reactive Protein 7.3 mg/L (0-4)
== END 2019-09-04 12:20 | disposition home or self-care (01) ==
LOC: INF 08:56
PROVIDERS: Referring Provider Internal Medicine Gastroenterology; Visit Provider Internal Medicine Gastroenterology
DX: K51.00 Ulcerative (chronic) pancolitis without complications (principal)
CPT/HCPCS: 80053; 85025; 86140; 96413; 96415; J1745

== ENCOUNTER → 2019-10-02 16:33 | Outpatient (CLI) | payer OTHER, SELFPAY ==
[2019-10-02 16:47] LABS: Basophils # 0.1 K/mm3 (0-0.2); Basophils % 0.4 % (0.1-2.0); Eosinophils # 0.1 K/mm3 (0.0-0.4); Eosinophils % 0.7 % (0.1-12.0); Hematocrit 35.4 % (42.0-52.0); Hemoglobin 11.4 g/dL (14.1-18.0); Lymphocytes # 1.9 K/mm3 (0.7-4.5); Lymphocytes % 11.8 % (10-50); Mean Corpuscular HGB Conc 32.2 g/dL (31.8-35.4); Mean Corpuscular Hemoglobin 28.9 pg (27.0-31.2); Mean Corpuscular Volume 89.7 fl (80-94); Mean Platelet Volume 6.8 fl (7.4-10.4); Monocytes % 6.3 % (1.7-9.3); Neutrophils # 12.8 K/mm3 (1.8-7.8); Neutrophils % 80.8 % (37.0-80.0); Platelet Count 792 K/mm3 (142-424); Red Blood Count 3.94 M/mm3 (4.60-6.20); White Blood Count 15.8 K/mm3 (4.8-10.8)
[2019-10-02 16:53] LABS: MANUAL DIFFERENTIAL MANUAL DIFFERENTIAL (MANUAL DIFF)
[2019-10-02 17:24] LABS: Chloride 90 mmol/L (98-107); Sodium 125 mmol/L (136-145)
[2019-10-02 17:25] LABS: Potassium 5.7 mmoL/L (3.5-5.1)
[2019-10-02 17:27] LABS: Alanine Aminotransferase 16 U/L (12-78); Albumin/Globulin Ratio 0.9 (1.1-1.8); Alkaline Phosphatase 66 U/L (38-126); Anion Gap 14.7 mEq/L (5-15); Aspartate Amino Transferase 18 U/L (17-59); Bilirubin,Total 0.4 mg/dl (0.2-1.3); Blood Urea Nitrogen 17 mg/dl (9-20); Calcium 8.9 mg/dl (8.4-10.2); Carbon Dioxide 26 mmol/L (22.0-30.0); Estimated Glomerular Filt Rate 69 ml/min (>60); GFR (African American) 84 ML/MIN (>60); Globulin 3.2 g/dL (1.3-3.2); Glucose 259 mg/dl (74-100); Total Protein,Serum 6.2 g/dl (6.3-8.2)
[2019-10-02 17:33] LABS: C-Reactive Protein 18.2 mg/L (0-4)
[2019-10-02 17:47] LABS: Eosinophils % 2 % (0-3); Lymphocytes % 17 % (10-50); Monocytes % 2 % (2-9); Neutrophils % 79 % (42-76); Platelet Estimate Marked Increase; RBC Morphology Normal; Total Cells Counted 100
== END ==
PROVIDERS: Visit Provider Internal Medicine Gastroenterology
DX: K51.00 Ulcerative (chronic) pancolitis without complications (principal)
CPT/HCPCS: 36415; 80053; 85007; 85025; 86140; 87493

== ENCOUNTER 2019-12-03 18:23 | Emergency (ER) | payer OTHER, SELFPAY ==
[2019-12-03 18:37] VITALS: BP 104/68; PULSE 105; RESP 18; TEMP 37.2; O2SAT 98; BMI 23.9
--- NOTE | 2019-12-03 18:43 | XR_ITS ---
PROCEDURE: XR CHEST 2V CLINICAL HISTORY: COUGH COMPARISON: CR XR CHEST PORTABLE from 08/06/2019 FINDINGS: The cardiomediastinal silhouette and pulmonary vascularity are within normal limits. There is a mild pectus deformity. Increased markings are present in both lower lobes and may be due to overlying vasculature. Follow-up exam may confirm if clinically desired. No acute bony abnormalities. IMPRESSION: Increased markings in the lower lobes which may be due to under penetrated exam an overlying vasculature. Cannot exclude mild airspace disease. Dictated by: Reno Luna MD 12/04/2019 05:34 Reno Luna MD in [place] 12/04/2019 05:34
[2019-12-03 18:52] VITALS: BP 104/68; PULSE 105; RESP 18; TEMP 37.2; O2SAT 98; BMI 24.0
--- NOTE | 2019-12-03 18:52 | HMH.EDUTC ---
[facility] Disposition Clinical Impression: Cough Disposition: Home, Self-Care Condition on Discharge: Good Additional Instructions: follow up with pcp take lasix as ordered record outpt- inform pcp if symptoms worsen return or be seen in in ed Prescriptions: Furosemide [Lasix 20mg tab] 20 mg PO DAILY 5 Days #5 tab Transmission Status: Pending to [id number] Referrals: Cristobal Batista MD [Primary Care Provider] - Time of Disposition: 19:32 Medical Decision Making - Eusebio Inquiry Pt receiving controlled substance: No Vital Signs: 12/03/19 18:37 12/03/19 18:52 Temperature 99 F 99.0 F Temperature Source Oral Oral Pulse Rate [Radial] 105 H 105 H Respiratory Rate 18 18 Blood Pressure [Right Arm] 104/68 L 104/68 L Blood Pressure Mean [Right Arm] 80 80 Blood Pressure Source [Right Arm] Automatic Cuff Blood Pressure Position [Right Arm] Sitting Sitting 02 Sat by Pulse Oximetry 98 98 Oxygen Delivery Method Room Air Room Air Orders (Tests/Meds): ORDERS Category Date Time Status CXR 2 view (NOT portable) [XR chest 2V] Stat Exams 12/03/19 18:43 Taken - Physician Consults Physician Consulted: armani Time: 19:26 Reason -: Other Comment/Response: informed chest xray clear, lungs clear [facility] HPI - General Chief complaint: Urgent Treatment Center Stated complaint: scratchy cough dr lomeli wants chest xray Time Seen by Provider: 12/03/19 18:52 Mode of Arrival: Ambulatory Source of Information: Patient Limitations: No Limitations Description of Symptoms (Recalled from Triage Doc. by RN): to ed per pvt car pt c/o dry cough x several days pt states he is scheduled for heart surgery wednesday called pcp and told to come to hospital for a chest xray. pt denies fever, chills, nausea, vomiting or other c/o - History of Present Illness Provider Complaint: 54 yr old male to ed per pvt car pt c/o dry cough x several days pt states he is scheduled for heart surgery wednesday called pcp and told to come to hospital for a chest xray. pt denies fever, chills, nausea, vomiting or other c/o - Related Data Home Medications Medication Instructions Recorded Confirmed Aspirin [Aspirin 81mg EC Tab] 81 mg PO DAILY 12/03/19 12/03/19 Atorvastatin Calcium [Lipitor 80mg 80 mg PO HS 12/03/19 12/03/19 Tab] Insulin Glargine,Hum.rec.anlog 15 units SQ BID 12/03/19 12/03/19 [Lantus Solostar 100 Units/mL 3mL flexpen] Insulin Lispro [Humalog Kwikpen 6 unit SQ TID 12/03/19 12/03/19 U-100] Previous Rx's Medication Instructions Recorded Furosemide [Lasix 20mg tab] 20 mg PO DAILY 5 Days #5 tab 12/03/19 Allergies Allergy/AdvReac Type Severity Reaction Status Date / Time No Known Allergies Allergy Verified 03/27/19 15:10 [facility] History - Hepatitis A Screen Attestation statement:: This patient has been screened for Hepatitis A risk factors. I have reviewed the patient's past medical history: Yes Medical History: Reports:: Coronary Artery Disease, Diabetes Mellitus Type 2, Hyperlipidemia, Hypertension, Myocardial Infarction (2009) Denies:: Cancer, Diabetes Mellitus Type 1, MRSA Other Medical History: Reports: Arthritis, Hypothyroidism, Other (Ulcerative colitis) Other Surgeries: Yes: Cardiac Catheterization, Colonoscopy, Coronary Stent (, 2009) Amputation: No - Social History Smoking Status: Former smoker Tobacco Type: cigarettes # Packs/Day (cigarettes): 1 #Yrs smoked (if former smoker): 18 Alcohol Intake: never Substance Use Type: denies use Occupational Status: employed Housing: house Household Members: spouse Family Hx:: Coronary Artery Disease, Diabetes, Heart Attack, Hypertension ROS Obtained: Yes Systems reviewed as appropriate & no additional complaints - Constitutional Constitutional: Reports system reviewed and no additional complaints, except as docu, Denies fever(s) - Eyes Eyes: Reports system reviewed and no additional complaints, except
[2019-12-03 19:46] VITALS: BP 104/68; PULSE 105; RESP 18; TEMP 37.2; O2SAT 98
== END 2019-12-03 19:47 | disposition home or self-care (01) ==
PROVIDERS: Emergency Provider Nurse Practitioner Family; PCP Family Medicine
DX: R05 Cough (principal); E11.9 Type 2 diabetes mellitus without complications; E78.5 Hyperlipidemia, unspecified; I10 Essential (primary) hypertension; I25.10 Atherosclerotic heart disease of native coronary artery without angina pectoris; I25.2 Old myocardial infarction; E03.9 Hypothyroidism, unspecified; Z87.891 Personal history of nicotine dependence
CPT/HCPCS: 71046; 99201

== ENCOUNTER → 2019-12-29 08:16 | Outpatient (CLI) | payer OTHER, SELFPAY ==
--- NOTE | 2019-12-29 08:21 | CA_ITS ---
APPROVED REPORT Right Lower Extremity Venous Study for DVT. Plaster Form Maker: ADAM Indications Lower Extremity Pain: Right Lower Extremity Edema: Right Patient recently had triple bypass surgery x 1-2 weeks ago. RLE GSV was harvested. Vein Imaging CFV (R): compressive, spontaneous, phasic, augmentation FEM (R): compressive, spontaneous, phasic, augmentation POP (R): compressive, spontaneous, phasic, augmentation PTV (R): Not Visualized SSV (R): Compressible Peroneals (R):Not Visualized GAS (R): Compressible Findings No evidence of DVT or superficial thrombophlebitis in the veins scanned of the right lower extremity. GSV was dilated and clotted off post harvesting for CABG x 1.5 weeks ago. Conclusion No evidence of DVT or superficial thrombophlebitis in the veins scanned of the right lower extremity. GSV was dilated and clotted off post harvesting for CABG x 1.5 weeks ago. Electronically signed by : Reno Luna MD 12/29/2019 17:57:07
== END ==
PROVIDERS: PCP Family Medicine; Visit Provider Family Medicine
DX: M79.605 Pain in left leg (principal); R60.0 Localized edema
CPT/HCPCS: 93971

== ENCOUNTER 2020-01-15 12:15 | Outpatient (CLI) | payer OTHER, SELFPAY ==
[2020-01-15 12:24] VITALS: BMI 25.1
[2020-01-15 12:43] LABS: Basophils # 0.1 K/mm3 (0-0.2); Basophils % 0.8 % (0.1-2.0); Eosinophils # 0.3 K/mm3 (0.0-0.4); Eosinophils % 2.8 % (0.1-12.0); Hematocrit 41.1 % (42.0-52.0); Lymphocytes # 1.4 K/mm3 (0.7-4.5); Lymphocytes % 15.8 % (10-50); Mean Corpuscular HGB Conc 31.7 g/dL (31.8-35.4); Mean Corpuscular Hemoglobin 26.7 pg (27.0-31.2); Mean Corpuscular Volume 84.1 fl (80-94); Mean Platelet Volume 7.7 fl (7.4-10.4); Monocytes # 0.7 K/mm3 (0.1-1.0); Monocytes % 7.5 % (1.7-9.3); Neutrophils # 6.7 K/mm3 (1.8-7.8); Neutrophils % 73.1 % (37.0-80.0); Platelet Count 364 K/mm3 (142-424); Red Blood Count 4.89 M/mm3 (4.60-6.20); Red Cell Distribution Width 15.4 % (11.5-17.5); White Blood Count 9.1 K/mm3 (4.8-10.8)
[2020-01-15 12:54] LABS: Alanine Aminotransferase 22 U/L (12-78); Albumin Level 4.3 g/dl (3.5-5.0); Albumin/Globulin Ratio 1.2 (1.1-1.8); Alkaline Phosphatase 81 U/L (38-126); Anion Gap 13.1 mEq/L (5-15); Aspartate Amino Transferase 29 U/L (17-59); Bilirubin,Total 0.5 mg/dl (0.2-1.3); Blood Urea Nitrogen 17 mg/dl (9-20); Calcium 10.4 mg/dl (8.4-10.2); Carbon Dioxide 30 mmol/L (22.0-30.0); Chloride 103 mmol/L (98-107); Creatinine Clearance Estimated 114 mL/min (50-200); Estimated Glomerular Filt Rate 100 ml/min (>60); GFR (African American) 121 ML/MIN (>60); Globulin 3.7 g/dL (1.3-3.2); Glucose 103 mg/dl (74-100); Potassium 4.1 mmoL/L (3.5-5.1); Sodium 142 mmol/L (136-145)
[2020-01-15 13:00] LABS: C-Reactive Protein 2.9 mg/L (0-4)
[2020-01-15 13:05] VITALS: BP 94/61; PULSE 98; RESP 18; TEMP 37.1; O2SAT 97
[2020-01-15 13:20] VITALS: BP 96/61; PULSE 91; RESP 18
[2020-01-15 13:43] VITALS: BP 92/53; PULSE 90; RESP 18
== END 2020-01-15 13:43 | disposition home or self-care (01) ==
LOC: INF 12:22
PROVIDERS: Visit Provider Internal Medicine Gastroenterology
DX: K51.00 Ulcerative (chronic) pancolitis without complications (principal)
CPT/HCPCS: 80053; 85025; 86140; 96413; J3380

== ENCOUNTER 2020-01-30 10:55 | Outpatient (CLI) | payer OTHER, SELFPAY ==
[2020-01-30 11:03] VITALS: BMI 26.2
[2020-01-30 11:33] VITALS: BP 92/59; PULSE 88; RESP 18; TEMP 36.8; O2SAT 98
[2020-01-30 11:34] LABS: Basophils # 0.1 K/mm3 (0-0.2); Basophils % 0.8 % (0.1-2.0); Eosinophils # 0.4 K/mm3 (0.0-0.4); Eosinophils % 4.7 % (0.1-12.0); Hematocrit 40.9 % (42.0-52.0); Hemoglobin 12.9 g/dL (14.1-18.0); Lymphocytes # 1.3 K/mm3 (0.7-4.5); Lymphocytes % 16.4 % (10-50); Mean Corpuscular HGB Conc 31.6 g/dL (31.8-35.4); Mean Corpuscular Hemoglobin 26.8 pg (27.0-31.2); Mean Corpuscular Volume 84.6 fl (80-94); Mean Platelet Volume 8.7 fl (7.4-10.4); Monocytes # 0.6 K/mm3 (0.1-1.0); Monocytes % 7.6 % (1.7-9.3); Neutrophils # 5.3 K/mm3 (1.8-7.8); Neutrophils % 70.4 % (37.0-80.0); Platelet Count 321 K/mm3 (142-424); Red Blood Count 4.83 M/mm3 (4.60-6.20); Red Cell Distribution Width 15.6 % (11.5-17.5); White Blood Count 7.6 K/mm3 (4.8-10.8)
[2020-01-30 12:00] VITALS: BP 99/62; PULSE 79; RESP 16; TEMP 36.8; O2SAT 98
[2020-01-30 12:08] LABS: Chloride 104 mmol/L (98-107)
[2020-01-30 12:09] LABS: Potassium 4.3 mmoL/L (3.5-5.1); Sodium 140 mmol/L (136-145)
[2020-01-30 12:11] LABS: Alanine Aminotransferase 21 U/L (12-78); Aspartate Amino Transferase 24 U/L (17-59); Bilirubin,Total 0.4 mg/dl (0.2-1.3); Blood Urea Nitrogen 13 mg/dl (9-20); Creatinine Clearance Estimated 136 mL/min (50-200); Estimated Glomerular Filt Rate 117 ml/min (>60); GFR (African American) 142 ML/MIN (>60)
[2020-01-30 12:12] LABS: Albumin Level 3.9 g/dl (3.5-5.0); Albumin/Globulin Ratio 1.1 (1.1-1.8); Alkaline Phosphatase 71 U/L (38-126); Anion Gap 11.3 mEq/L (5-15); Calcium 9.8 mg/dl (8.4-10.2); Carbon Dioxide 29 mmol/L (22.0-30.0); Globulin 3.4 g/dL (1.3-3.2); Glucose 95 mg/dl (74-100); Total Protein,Serum 7.3 g/dl (6.3-8.2)
[2020-01-30 12:17] LABS: C-Reactive Protein 1.4 mg/L (0-4)
== END 2020-01-30 12:00 | disposition home or self-care (01) ==
LOC: INF 11:00
PROVIDERS: Visit Provider Internal Medicine Gastroenterology
DX: K51.00 Ulcerative (chronic) pancolitis without complications (principal)
CPT/HCPCS: 80053; 85025; 86140; 96413; J3380

== ENCOUNTER 2020-02-14 13:42 | Outpatient (RCR) | payer MEDICAID, SELFPAY | END 2020-05-22 09:40 | disposition home or self-care (01) | LOC: PT 13:42 | PROVIDERS: Visit Provider Nurse Practitioner Family | DX: I25.810 Atherosclerosis of coronary artery bypass graft(s) without angina pectoris (principal); Z95.1 Presence of aortocoronary bypass graft | CPT/HCPCS: 93798 ==

== ENCOUNTER 2020-02-26 11:14 | Outpatient (CLI) | payer MEDICAID, SELFPAY ==
[2020-02-26 11:16] VITALS: BMI 34.5
[2020-02-26 11:38] LABS: Basophils # 0.1 K/mm3 (0-0.2); Basophils % 0.7 % (0.1-2.0); Eosinophils # 0.3 K/mm3 (0.0-0.4); Eosinophils % 3.3 % (0.1-12.0); Hematocrit 40.3 % (42.0-52.0); Hemoglobin 12.3 g/dL (14.1-18.0); Lymphocytes # 1.4 K/mm3 (0.7-4.5); Mean Corpuscular HGB Conc 30.6 g/dL (31.8-35.4); Mean Corpuscular Hemoglobin 26.5 pg (27.0-31.2); Mean Corpuscular Volume 86.7 fl (80-94); Mean Platelet Volume 11.9 fl (7.4-10.4); Monocytes # 0.6 K/mm3 (0.1-1.0); Monocytes % 7.7 % (1.7-9.3); Neutrophils # 5.3 K/mm3 (1.8-7.8); Neutrophils % 70.3 % (37.0-80.0); Platelet Count 270 K/mm3 (142-424); Red Blood Count 4.65 M/mm3 (4.60-6.20); Red Cell Distribution Width 15.7 % (11.5-17.5); White Blood Count 7.5 K/mm3 (4.8-10.8)
[2020-02-26 11:45] VITALS: BP 101/62; PULSE 76; RESP 18; TEMP 36.1; O2SAT 99
[2020-02-26 11:57] LABS: Alanine Aminotransferase 19 U/L (12-78); Albumin Level 3.6 g/dl (3.5-5.0); Albumin/Globulin Ratio 1.1 (1.1-1.8); Alkaline Phosphatase 73 U/L (38-126); Anion Gap 10.1 mEq/L (5-15); Aspartate Amino Transferase 22 U/L (17-59); Bilirubin,Total 0.3 mg/dl (0.2-1.3); Blood Urea Nitrogen 8 mg/dl (9-20); Calcium 9.6 mg/dl (8.4-10.2); Carbon Dioxide 29 mmol/L (22.0-30.0); Chloride 103 mmol/L (98-107); Creatinine Clearance Estimated 135 mL/min (50-200); Estimated Glomerular Filt Rate 117 ml/min (>60); GFR (African American) 142 ML/MIN (>60); Globulin 3.4 g/dL (1.3-3.2); Glucose 93 mg/dl (74-100); Potassium 4.1 mmoL/L (3.5-5.1); Sodium 138 mmol/L (136-145)
[2020-02-26 12:25] LABS: C-Reactive Protein 2.9 mg/L (0-4)
[2020-02-26 12:28] VITALS: BP 109/63; PULSE 74; RESP 18
== END 2020-02-26 12:28 | disposition home or self-care (01) ==
LOC: INF 11:14
PROVIDERS: Visit Provider Internal Medicine Gastroenterology
DX: K51.00 Ulcerative (chronic) pancolitis without complications (principal)
CPT/HCPCS: 80053; 85025; 86140; 96413; J3380

== ENCOUNTER → 2020-03-05 10:52 | Outpatient (CLI) | payer MEDICAID, SELFPAY ==
--- NOTE | 2020-03-05 10:59 | XR_ITS ---
PROCEDURE: XR SHOULDER RT MIN 2V CLINICAL INDICATION: RT shoulder pain COMPARISON: No exams were available for comparison FINDINGS: There are mild osteoarthritic changes at the acromioclavicular and glenohumeral joint. Spurring is present along the inferior surface of the acromion with subacromial stenosis. There is an extra calcific density at the AC joint superiorly. IMPRESSION: Mild osteoarthritic change of the AC joint and glenohumeral joint with subacromial stenosis Dictated by: Reno Luna MD 03/05/2020 15:49 Reno Luna MD in [place] 03/05/2020 15:49
== END ==
PROVIDERS: PCP Family Medicine; Visit Provider Orthopaedic Surgery
DX: M25.511 Pain in right shoulder (principal)
CPT/HCPCS: 73030

== ENCOUNTER → 2020-03-22 12:51 | Outpatient (CLI) | payer MEDICAID, SELFPAY ==
--- NOTE | 2020-03-22 12:56 | XR_ITS ---
PROCEDURE: XR SHOULDER RT MIN 3V Referring Doctor: Bri Lockhart Patient Age:54Y CLINICAL INDICATION: RT shoulder pain No trauma. Persistent pain. The a COMPARISON: CR XR CHEST PORTABLE from 08/06/2019 CR XR CHEST 2V from 12/03/2019 CR XR SHOULDER RT MIN 2V from 03/05/2020 FINDINGS: RIGHT SHOULDER 3 VIEWS: Supraspinatus view, Axillary view, Grashey view: Today's study is a compared to March 05. The The glenohumeral joint is intact. The humeral head and neck intact. Glenoid appears adequate and well-formed with some only suggestion of scant hypertrophic ridging about its margin between available studies but AC joint: Small 5 mm corticated ovoid osseous density noted a at the superior aspect of AC joint likely reflecting old trauma and mild degenerative changes here at AC joint. These features are noted and appear unchanged prior February the study. There is a previous portable chest from July 2019 which shows mild degenerative changes of both right and left AC joint. Slight roughening at the inferior aspect of the acromion. Acromion seems to have a fairly neutral course on this set of images but the scapula is intact but the upper right chest and right clavicle unremarkable otherwise but previous sternotomy/CABG noted. The IMPRESSION: No acute findings . Mild osteoarthritic changes AC joint again noted. . Only suggestion of scant degenerative changes at glenoid and glenohumeral joint. Dictated by: Cristi Rodriguez MD 03/22/2020 14:07 Cristi Rodriguez MD in [place] 03/22/2020 14:07
== END ==
PROVIDERS: PCP Family Medicine; Visit Provider Orthopaedic Surgery
DX: M25.511 Pain in right shoulder (principal)
CPT/HCPCS: 73030

== ENCOUNTER 2020-04-22 10:40 | Outpatient (CLI) | payer MEDICAID, SELFPAY ==
[2020-04-22 10:44] VITALS: BMI 28.6
[2020-04-22 11:02] LABS: Basophils # 0.1 K/mm3 (0-0.2); Basophils % 0.8 % (0.1-2.0); Eosinophils # 0.2 K/mm3 (0.0-0.4); Hematocrit 41.3 % (42.0-52.0); Hemoglobin 13.4 g/dL (14.1-18.0); Lymphocytes # 1.2 K/mm3 (0.7-4.5); Lymphocytes % 19.4 % (10-50); Mean Corpuscular HGB Conc 32.5 g/dL (31.8-35.4); Mean Corpuscular Hemoglobin 27.2 pg (27.0-31.2); Mean Corpuscular Volume 83.8 fl (80-94); Mean Platelet Volume 8.3 fl (7.4-10.4); Monocytes # 0.5 K/mm3 (0.1-1.0); Monocytes % 8.2 % (1.7-9.3); Neutrophils # 4.2 K/mm3 (1.8-7.8); Neutrophils % 68.6 % (37.0-80.0); Platelet Count 233 K/mm3 (142-424); Red Blood Count 4.93 M/mm3 (4.60-6.20); Red Cell Distribution Width 16.1 % (11.5-17.5); White Blood Count 6.1 K/mm3 (4.8-10.8)
[2020-04-22 11:12] LABS: Chloride 110 mmol/L (98-107)
[2020-04-22 11:13] LABS: Potassium 4.1 mmoL/L (3.5-5.1); Sodium 142 mmol/L (136-145)
[2020-04-22 11:15] VITALS: BP 125/74; PULSE 83; RESP 18; TEMP 36.3; O2SAT 97
[2020-04-22 11:15] LABS: Alanine Aminotransferase 28 U/L (12-78); Aspartate Amino Transferase 39 U/L (17-59); Blood Urea Nitrogen 12 mg/dl (9-20); Creatinine Clearance Estimated 130 mL/min (50-200); Estimated Glomerular Filt Rate 100 ml/min (>60); GFR (African American) 121 ML/MIN (>60)
[2020-04-22 11:16] LABS: Albumin Level 4.4 g/dl (3.5-5.0); Albumin/Globulin Ratio 1.2 (1.1-1.8); Alkaline Phosphatase 79 U/L (38-126); Anion Gap 10.1 mEq/L (5-15); Bilirubin,Total 0.5 mg/dl (0.2-1.3); Calcium 10.2 mg/dl (8.4-10.2); Carbon Dioxide 26 mmol/L (22.0-30.0); Globulin 3.7 g/dL (1.3-3.2); Glucose 93 mg/dl (74-100); Total Protein,Serum 8.1 g/dl (6.3-8.2)
[2020-04-22 11:22] LABS: C-Reactive Protein 0.6 mg/L (0-4)
[2020-04-22 12:05] VITALS: BP 110/70; PULSE 72; RESP 18
== END 2020-04-22 12:05 | disposition home or self-care (01) ==
LOC: INF 10:42
PROVIDERS: Visit Provider Internal Medicine Gastroenterology
DX: K51.00 Ulcerative (chronic) pancolitis without complications (principal)
CPT/HCPCS: 80053; 85025; 86140; 96413; J3380

== ENCOUNTER → 2020-05-27 13:39 | Outpatient (CLI) | payer MEDICAID, SELFPAY ==
--- NOTE | 2020-05-27 13:40 | CA_ITS ---
APPROVED REPORT EXAM: Comprehensive 2D, Doppler, and color-flow Echocardiogram Health Companion: Janae Morrow, ARTHUR, RVS Ht: 5 ft 9 in Wt: 182lbs BSA: 1.99 BP: 119/80 mmHg Indications: Pre-op for froizen Lt shouder, CAD-CABG, DM, HTN, HLD, EX-SMOKER, CROHN'S DISEASE Echo Enhancing Agent Comments: Technically limited exam due to inability to be positioned with frozen Left shoulder. 2D Dimensions IVSd 0.90 cm LVEF (Visual) 50.10 % PWd 0.86 cm LA Volume 29.60 mL LVDd 3.88 cm LA Volume Index 14.90 mL/m2 (M/F) 16-34 LVDs 2.91 cm Aortic Root 3.57 cm Left Atrium 2.75 cm LVOT 1.91 cm (M/F) 1.5-2.5 Ascending Aorta 3.07 cm M-Mode Dimensions LA Diam 2.62 cm (1.9-4.0) Ao Diam 3.59 cm (2.0-3.7) LV Diastology E Decel Time 283.00 (160-240 msec) E/A Ratio 1.02 MED E' 11.60 (< 7 cm/sec) MED A' 9.20 cm/s E'/MED E' Ratio 4.97 (>14) LAT E' 12.90 (<10 cm/sec) LAT A' 7.60 cm/s E/LAT E' Ratio 4.47 (>14) Aortic Valve LVOT Max 92.00 (70-110 cm/s) LVOT VTI 19.60 cm AoV Peak Yovanny. 110.00 (50-130 cm/s) AO Peak GR. 4.80 mmHg AO Mean GR. 2.40 (<5 mmHg) AO VTI 23.99 (18-25 cm) CLIFFORD (VTI) 2.34 (2.5-4.5 cm2) Mitral Valve MV E Max Yovanny. 58.00 (40-130 cm/s) MV A Velocity 57.00 (40-130 cm/s) E/A Ratio 1.02 MV Decel. Time 283.00 (160-240 ms) MV PHT 83.00 ms Pulmonary Valve PV Peak Velocity 60.00 (50-150 cm/s) Tricuspid Valve TR P. Velocity 149.00 cm/s RAP Estimate 10.00 mmHg RVSP 18.90 mmHg Left Ventricle Left atrium is normal size, left ventricle is normal size, there is preserved left ventricular systolic function, visually estimated ejection fraction 55% with no regional wall motion abnormality, diastolic parameters are within normal range. Right Ventricle Right atrium and right ventricle are normal size and contractility. Aortic Valve Aortic valve is minimally thickened and fibrosed, there is no aortic stenosis or aortic insufficiency. Mitral Valve Mitral valve grossly normal, there is trace mitral regurgitation. Tricuspid Valve Tricuspid grossly normal, there is trace tricuspid regurgitation, tricuspid regurgitation jet velocity is inadequate for calculation of the right ventricular systolic pressure. Pulmonic Valve Pulmonic valve is poorly visualized. Great Vessels Aortic root is normal size. Pericardium No significant pericardial effusion noted. Conclusion 1. Normal left ventricular size, preserved left ventricular systolic function, visually estimated ejection fraction 55% with no regional wall motion abnormality, diastolic parameters are within normal range. 2. Trace mitral and tricuspid regurgitation. 3. No significant pericardial effusion noted. Electronically signed by : Suhail Krishnan, 05/27/2020 21:14:38
== END ==
PROVIDERS: PCP Family Medicine; Visit Provider Internal Medicine
DX: I10 Essential (primary) hypertension (principal); R94.31 Abnormal electrocardiogram [ECG] [EKG]; E11.9 Type 2 diabetes mellitus without complications; E78.5 Hyperlipidemia, unspecified; Z95.1 Presence of aortocoronary bypass graft; Z79.4 Long term (current) use of insulin
CPT/HCPCS: 93306

== ENCOUNTER 2020-05-29 10:00 | Outpatient (RCR) | payer MEDICAID, SELFPAY ==
--- NOTE | 2020-05-06 15:44 | HMH.OTOPEV ---
OT Inpatient Evaluation Rehab OT Outpatient Eval Start: 05/06/20 15:14 Freq: Status: Active Protocol: Document 05/06/20 15:14 RMARSHALL (Rec: 05/06/20 15:44 [facility] [id number]) Electronically Signed By Cortney Charles OT 05/06/20 15:14 Outpatient Therapy Subjective History Subjective History Pt is a 54 year old man who reports to initial evaluation for bilateral shoulders. Pt reports he had a triple bypass surgery in October 2019. Shortly after this surgery he began having significant pain in bilateral shoulders. Pt had also had a surgery in August of [address] a colostomy. Pt presents today with a decrease in AROM and strength at bilateral shoulders. Pt had a cortizone shot in his right shoulder ~1 1/2 months ago. He claims at the time the right shoulder was worse, but now his left shoulder is worse. Pt will continue to be seen to address bilateral shoulder deficits. Pt will be having surgery at the end of May which may require him to stop therapy. Right STG AROM Flex: 120 Abd: 120 ER: 65 IR: 65 Right LTG AROM Flex: 140 Abd: 140 ER: 70 IR: 70 Left STG AROM Flex: 110 Abd: 110 ER: 55 IR: 55 Left LTG AROM Flex: 130 Abd: 130 ER: 65 IR: 65 Chief Complaint Pain,Stiff,Weakness Symptom Type Ache,Throb,Dull Symptoms Relieved By Rest/Positioning Symptoms Aggravated By Physical Activity,Lifting Prior Functional Limitations None Current Functional Limitations Reaching,Lifting,Housework,
== END 2020-05-29 10:05 | disposition home or self-care (01) ==
LOC: OT 10:00
PROVIDERS: PCP Family Medicine; Visit Provider Orthopaedic Surgery
DX: M75.01 Adhesive capsulitis of right shoulder (principal); M75.02 Adhesive capsulitis of left shoulder
CPT/HCPCS: 97014; 97110; 97140; 97166; G0283

== ENCOUNTER → 2020-08-16 11:26 | Outpatient (CLI) | payer MEDICAID, SELFPAY ==
--- NOTE | 2020-08-16 11:31 | XR_ITS ---
PROCEDURE: XR SHOULDER LT MIN 2V CLINICAL INDICATION: left shoulder pain COMPARISON: CR XR SHOULDER RT MIN 2V from 03/05/2020 CR XR SHOULDER RT MIN 2V from 03/22/2020 FINDINGS: No fracture or dislocation. No lytic or blastic change. There is normal mineralization. The joint spaces are well-preserved. No significant degenerative/arthritic changes. No erosive changes evident. Other findings:None. IMPRESSION: No acute findings. Dictated by: Reno Luna MD 08/16/2020 11:55 Reno Luna MD in [place] 08/16/2020 11:55
== END ==
PROVIDERS: PCP Family Medicine; Visit Provider Orthopaedic Surgery
DX: M25.512 Pain in left shoulder (principal)
CPT/HCPCS: 73030

== ENCOUNTER 2020-11-20 10:00 | Outpatient (RCR) | payer MEDICAID, SELFPAY ==
--- NOTE | 2020-08-26 11:36 | HMH.OTOPEV ---
OT Inpatient Evaluation Rehab OT Outpatient Eval Start: 08/26/20 11:23 Freq: Status: Active Protocol: Document 08/26/20 11:23 RMERICA (Rec: 08/26/20 11:36 [id number][facility] Electronically Signed By Cortney Charles OT 08/26/20 11:23 Outpatient Therapy Subjective History Subjective History Pt is a 54 year old male who reports to therapy for evaluation to bilateral shoulders. Pt was seen earlier in the year for adhesive capsulitis bilaterally. However, he had to stop therapy due to having an extensive surgery for a rectal removal on June 03. Pt's shoulders started hurting him following a tripple bypass surgery he had in February of 2020. Pt reports his right shoulder has improved since attending therapy earlier this year. He had a steroid injection in the L shoulder ~ 1 week ago that has helped him significantly. Pt does demonstrate with decreased AROM and strength at both shoulders. Pt will continue to be seen in order to address all deficits. STG R shoulder AROM Flex: 140 degrees Abd: 150 degrees ER: 85 degrees IR: 85 degrees L shoulder AROM Flex: 130 degrees Abd: 130 degrees ER: 70 degrees IR: 90 degrees LTG R shoulder AROM Flex: 160 degrees Abd: 160 degrees ER: 90 degrees IR: 90 degrees L shoulder AROM Flex: 150 degrees Abd: 150 degrees ER: 80 degrees IR: 90 degrees Chief Complaint Pain,Stiff,Weakness Symptom Type
--- NOTE | 2020-09-23 10:07 | HMH.RHREAS ---
Rehab Reassessment Rehab OP Re-assessment Start: 09/23/20 08:58 Freq: Status: Active Protocol: Document 09/23/20 09:00 RMSHIKHAHALL (Rec: 09/23/20 10:06 RMARSHALL [id number]) Electronically Signed By Cortney Charles OT 09/23/20 09:00 Rehab Re-assessment Subjective Subjective I see great improvements. Objective Objective Notes Pt continues to be seen twice a week in order to address bilateral shoulder deficits. Each session, pt engages in bilateral shoulder AROM, AAROM , and strengthening exercises. Pt does receive PROM manual stretching to both shoulders. Modalties are provided in order to improve pain/ inflammation. Assessment Progress Assessment Progressing as Expected Assessment Notes Pt demonstrates great improvement at both shoulders since initial evaluation. Pt reports he does not have pain in the right shoulder anymore and his left is not as severe as before. Pt explains his left shoulder is a 3/10 at worst now. Usually the left is painful with abudction. After completing measurements it appears the right shoulder is now within normal limits. Left shoulder is still limited but still improved. Pt feels he is 65% better sin starting therapy. Current AROM R shoulder Flex: 160 degrees Abd: 155 degrees ER: 90 degrees IR: 90 degrees Current AROM L shoulder Flex: 135 degrees Abd: 126 degrees ER: 75 degrees IR: 80 degrees Patient goals met All short term goals have been met LTG of R shoulder AROM exercises Goals Not Met See below Revised Goals LTG with L shoulder AROM goals Plan Plan Continues with OT plan of care
--- NOTE | 2020-10-21 10:09 | HMH.RHREAS ---
Rehab Reassessment Rehab OP Re-assessment Start: 09/23/20 08:58 Freq: Status: Active Protocol: Document 10/21/20 10:02 BUSHRA (Rec: 10/21/20 10:09 BUSHRA [id number]) Electronically Signed By Cortney Sim OT 10/21/20 10:02 Rehab Re-assessment Subjective Subjective I do feel it is doing better than before. Objective Objective Notes Pt continues to be seen twice a week in order to address left shoulder deficits. Each session, pt engages in left shoulder AROM, AAROM, and strengthening exercises. Pt does receive PROM manual stretching to left shoulders. Modalties are provided in order to improve pain/ inflammation. Assessment Progress Assessment Progressing as Expected Assessment Notes Patient has met all goals for right shoulder. Therefore, therapist has been focusing only on left shoulder. Pt feels his pain has improved significantly, but still feels tightness in left shoulder. Pt reports he is able to complete all activities needed at home, but does have pain with reaching to the side and overhead. Pt reports pain at worst 2/10. Overall great improvement at shoulder. Current AROM L shoulder Flex: 140 degrees Abd: 130 degrees ER: 80 degrees IR: 80 degrees Patient goals met All short term goals have been met LTG of R shoulder AROM exercises Goals Not Met See below Revised Goals LTG with L shoulder AROM goals Plan Plan Continues with OT plan of care at this time Frequency of Therapy 2x's a week Duration of therapy 4 more weeks Time and Billing Re-Eval Time 10 Re-Eval Billing Units 1 PHYSICIAN CERTIFICATION: I certify the specified therapy services for Victorino Fountain are required, authorized,
== END 2020-11-20 10:05 | disposition home or self-care (01) ==
LOC: OT 10:00
PROVIDERS: PCP Family Medicine; Visit Provider Orthopaedic Surgery
DX: M25.511 Pain in right shoulder (principal); M25.512 Pain in left shoulder; M75.42 Impingement syndrome of left shoulder; M75.52 Bursitis of left shoulder; M75.22 Bicipital tendinitis, left shoulder
CPT/HCPCS: 97014; 97110; 97140; 97164; 97166; 97530; G0283

== ENCOUNTER → 2021-07-31 18:33 | Outpatient (CLI) | payer SELFPAY | PROVIDERS: PCP Family Medicine; Visit Provider Nurse Practitioner Family | DX: Z02.4 Encounter for examination for driving license (principal) ==

== ENCOUNTER → 2021-10-20 21:34 | Outpatient (CLI) | payer MEDICARE, MEDICAID, SELFPAY ==
[2021-10-20 22:05] LABS: Alanine Aminotransferase 28 U/L (12-78); Alkaline Phosphatase 133 U/L (38-126); Aspartate Amino Transferase 35 U/L (17-59); Bilirubin,Unconjugated 0.2 mg/dL (0.0-1.1); Triglycerides 325 mg/dl (30-150); VLDL Cholesterol 65 mg/dL (0-40)
[2021-10-20 22:06] LABS: Albumin Level 3.8 g/dl (3.5-5.0); Chol/HDL Ratio 4.8 (1-3.5); Cholesterol 153 mg/dl (140-200); HDL Cholesterol 32 mg/dl (40-60); Total Protein,Serum 6.6 g/dl (6.3-8.2)
[2021-10-20 22:14] LABS: Bilirubin,Indirect 0.1 mg/dL (0.0-0.9); Bilirubin,Total < 0.1 mg/dl (0.2-1.3)
[2021-10-20 22:17] LABS: Direct LDL Cholesterol 73.56 mg/dL (100-129)
== END ==
PROVIDERS: PCP Nurse Practitioner Family; Visit Provider Nurse Practitioner Family
DX: E11.69 Type 2 diabetes mellitus with other specified complication (principal); E78.2 Mixed hyperlipidemia; I10 Essential (primary) hypertension; I25.10 Atherosclerotic heart disease of native coronary artery without angina pectoris; I25.810 Atherosclerosis of coronary artery bypass graft(s) without angina pectoris; R94.31 Abnormal electrocardiogram [ECG] [EKG]; Z95.1 Presence of aortocoronary bypass graft; Z79.4 Long term (current) use of insulin
CPT/HCPCS: 80061; 80076

== ENCOUNTER → 2022-01-19 10:14 | Outpatient (CLI) | payer MEDICARE, MEDICAID, SELFPAY ==
[2022-01-19 20:30] LABS: Alanine Aminotransferase 39 U/L (12-78); Albumin Level 4.5 g/dl (3.5-5.0); Albumin/Globulin Ratio 1.6 (1.1-1.8); Alkaline Phosphatase 137 U/L (38-126); Anion Gap 14.4 mEq/L (5-15); Aspartate Amino Transferase 33 U/L (17-59); Bilirubin,Total 0.9 mg/dl (0.2-1.3); Blood Urea Nitrogen 11 mg/dl (9-20); Calcium 10.4 mg/dl (8.4-10.2); Carbon Dioxide 25 mmol/L (22.0-30.0); Chloride 102 mmol/L (98-107); Chol/HDL Ratio 5.6 (1-3.5); Cholesterol 211 mg/dl (140-200); Estimated Glomerular Filt Rate 100 ml/min (>60); GFR (African American) 121 ML/MIN (>60); Globulin 2.8 g/dL (1.3-3.2); Glucose 318 mg/dl (74-100); HDL Cholesterol 38 mg/dl (40-60); Potassium 4.4 mmoL/L (3.5-5.1); Sodium 137 mmol/L (136-145); Total Protein,Serum 7.3 g/dl (6.3-8.2); Triglycerides 284 mg/dl (30-150); VLDL Cholesterol 57 mg/dL (0-40)
[2022-01-19 20:37] LABS: Hemoglobin A1C 12.2 % (4.0-6.0)
[2022-01-19 20:41] LABS: Direct LDL Cholesterol 116.32 mg/dL (100-129)
== END ==
PROVIDERS: PCP Family Medicine; Visit Provider Family Medicine
DX: Z00.00 Encounter for general adult medical examination without abnormal findings (principal); R07.9 Chest pain, unspecified; R79.89 Other specified abnormal findings of blood chemistry
CPT/HCPCS: 80053; 80061; 83036

== ENCOUNTER → 2022-04-21 23:00 | Outpatient (CLI) | payer MEDICARE, SELFPAY ==
[2022-04-21 18:36] LABS: Basophils # 0.1 K/mm3 (0-0.2); Basophils % 0.8 % (0.1-2.0); Eosinophils # 0.2 K/mm3 (0.0-0.4); Eosinophils % 2.2 % (0.1-12.0); Hematocrit 45.8 % (42.0-52.0); Hemoglobin 15.5 g/dL (14.1-18.0); Lymphocytes # 1.2 K/mm3 (0.7-4.5); Lymphocytes % 17.9 % (10-50); Mean Corpuscular HGB Conc 33.7 g/dL (31.8-35.4); Mean Corpuscular Hemoglobin 30.1 pg (27.0-31.2); Mean Corpuscular Volume 89.3 fl (80-94); Mean Platelet Volume 9.8 fl (7.4-10.4); Monocytes # 0.4 K/mm3 (0.1-1.0); Monocytes % 6.3 % (1.7-9.3); Neutrophils # 5.1 K/mm3 (1.8-7.8); Neutrophils % 72.8 % (37.0-80.0); Platelet Count 263 K/mm3 (142-424); Red Blood Count 5.13 M/mm3 (4.60-6.20)
[2022-04-21 18:37] LABS: Alanine Aminotransferase 26 U/L (12-78); Albumin Level 4.3 g/dl (3.5-5.0); Albumin/Globulin Ratio 1.5 (1.1-1.8); Alkaline Phosphatase 108 U/L (38-126); Anion Gap 15.3 mEq/L (5-15); Aspartate Amino Transferase 27 U/L (17-59); Blood Urea Nitrogen 9 mg/dl (9-20); Calcium 9.4 mg/dl (8.4-10.2); Carbon Dioxide 22 mmol/L (22.0-30.0); Chloride 102 mmol/L (98-107); Estimated Glomerular Filt Rate 139 ml/min (>60); GFR (African American) 168 ML/MIN (>60); Globulin 2.9 g/dL (1.3-3.2); Glucose 223 mg/dl (74-100); Potassium 4.3 mmoL/L (3.5-5.1); Sodium 135 mmol/L (136-145); Total Protein,Serum 7.2 g/dl (6.3-8.2)
[2022-04-21 18:49] LABS: Microalbumin < 6.000 mg/L (0-16.7)
[2022-04-21 18:58] LABS: Creatinine,Urine Random 87 mg/dL (Not Estab.)
[2022-04-21 19:06] LABS: Thyroid Stimulating Hormone 1.27 uIU/mL (0.465-4.68)
[2022-04-21 19:25] LABS: Vitamin B12 722 pg/mL (239-931)
== END ==
PROVIDERS: PCP Family Medicine; Visit Provider Family Medicine
DX: Z90.49 Acquired absence of other specified parts of digestive tract (principal); I25.810 Atherosclerosis of coronary artery bypass graft(s) without angina pectoris; E11.69 Type 2 diabetes mellitus with other specified complication; Z79.4 Long term (current) use of insulin
CPT/HCPCS: 80053; 82043; 82570; 82607; 84443; 85025

== ENCOUNTER → 2022-10-27 11:21 | Outpatient (CLI) | payer MEDICARE, MEDICAID, SELFPAY ==
[2022-10-27 21:00] LABS: Alanine Aminotransferase 37 U/L (12-78); Albumin/Globulin Ratio 1.3 (1.1-1.8); Alkaline Phosphatase 98 U/L (38-126); Anion Gap 14.1 mEq/L (5-15); Aspartate Amino Transferase 34 U/L (17-59); Bilirubin,Total 0.8 mg/dl (0.2-1.3); Blood Urea Nitrogen 10 mg/dl (9-20); Calcium 10.3 mg/dl (8.4-10.2); Carbon Dioxide 26 mmol/L (22.0-30.0); Chloride 104 mmol/L (98-107); Estimated Glomerular Filt Rate 99 ml/min (>60); GFR (African American) 120 ML/MIN (>60); Globulin 3.1 g/dL (1.3-3.2); Glucose 184 mg/dl (74-100); Potassium 5.1 mmoL/L (3.5-5.1); Sodium 139 mmol/L (136-145); Total Protein,Serum 7.1 g/dl (6.3-8.2)
[2022-10-27 22:35] LABS: Hemoglobin A1C 9.1 % (4.0-6.0)
== END ==
PROVIDERS: PCP Family Medicine; Visit Provider Family Medicine
DX: E11.9 Type 2 diabetes mellitus without complications (principal)
CPT/HCPCS: 80053; 83036

== ENCOUNTER → 2023-01-26 23:09 | Outpatient (CLI) | payer MEDICARE, MEDICAID, SELFPAY ==
[2023-01-26 19:04] LABS: Basophils # 0.1 K/mm3 (0-0.2); Basophils % 0.7 % (0.1-2.0); Eosinophils # 0.2 K/mm3 (0.0-0.4); Eosinophils % 2.4 % (0.1-12.0); Hematocrit 44.6 % (42.0-52.0); Hemoglobin 15.5 g/dL (14.1-18.0); Lymphocytes # 1.3 K/mm3 (0.7-4.5); Lymphocytes % 18.5 % (10-50); Mean Corpuscular HGB Conc 34.8 g/dL (31.8-35.4); Mean Corpuscular Hemoglobin 31.7 pg (27.0-31.2); Mean Corpuscular Volume 91.1 fl (80-94); Mean Platelet Volume 8.9 fl (7.4-10.4); Monocytes # 0.5 K/mm3 (0.1-1.0); Monocytes % 6.4 % (1.7-9.3); Neutrophils # 5.1 K/mm3 (1.8-7.8); Platelet Count 240 K/mm3 (142-424); Red Cell Distribution Width 14.4 % (11.5-17.5); White Blood Count 7.1 K/mm3 (4.8-10.8)
[2023-01-26 19:08] LABS: Alanine Aminotransferase 31 U/L (12-78); Albumin Level 4.3 g/dl (3.5-5.0); Albumin/Globulin Ratio 1.4 (1.1-1.8); Alkaline Phosphatase 111 U/L (38-126); Anion Gap 9.1 mEq/L (5-15); Aspartate Amino Transferase 33 U/L (17-59); Bilirubin,Total 0.7 mg/dl (0.2-1.3); Blood Urea Nitrogen 10 mg/dl (9-20); Carbon Dioxide 25 mmol/L (22.0-30.0); Chloride 103 mmol/L (98-107); Chol/HDL Ratio 4.9 (1-3.5); Cholesterol 157 mg/dl (140-200); Estimated Glomerular Filt Rate 116 ml/min (>60); GFR (African American) 140 ML/MIN (>60); Globulin 3.1 g/dL (1.3-3.2); Glucose 246 mg/dl (74-100); HDL Cholesterol 32 mg/dl (40-60); Potassium 4.1 mmoL/L (3.5-5.1); Sodium 133 mmol/L (136-145); Total Protein,Serum 7.4 g/dl (6.3-8.2); Triglycerides 215 mg/dl (30-150); VLDL Cholesterol 43 mg/dL (0-40)
[2023-01-26 19:19] LABS: Direct LDL Cholesterol 84.37 mg/dL (100-129)
[2023-01-26 19:38] LABS: Prostate Specific Ag Screen 0.8 ng/ml (0.0-4.0)
[2023-01-26 19:50] LABS: Creatinine,Urine Random 72 mg/dL (Not Estab.); Microalbumin < 6.000 mg/L (0-16.7)
[2023-01-26 19:58] LABS: Vitamin B12 835 pg/mL (239-931)
[2023-01-26 20:11] LABS: Hemoglobin A1C 9.8 % (4.0-6.0)
== END ==
PROVIDERS: PCP Nurse Practitioner; Visit Provider Nurse Practitioner
DX: E78.5 Hyperlipidemia, unspecified; I10 Essential (primary) hypertension; Z12.5 Encounter for screening for malignant neoplasm of prostate; E11.69 Type 2 diabetes mellitus with other specified complication; Z79.4 Long term (current) use of insulin
CPT/HCPCS: 80053; 80061; 82043; 82570; 82607; 83036; 85025; G0103

== ENCOUNTER 2023-02-09 10:35 | Outpatient (CLI) | payer MEDICARE, MEDICAID, SELFPAY ==
[2023-02-09 20:31] LABS: Chloride 104 mmol/L (98-107); Potassium 4.6 mmoL/L (3.5-5.1); Sodium 136 mmol/L (136-145)
[2023-02-09 20:33] LABS: Blood Urea Nitrogen 10 mg/dl (9-20); Estimated Glomerular Filt Rate 116 ml/min (>60); GFR (African American) 140 ML/MIN (>60)
[2023-02-09 20:34] LABS: Anion Gap 12.6 mEq/L (5-15); Calcium 8.8 mg/dl (8.4-10.2); Carbon Dioxide 24 mmol/L (22.0-30.0); Glucose 215 mg/dl (74-100)
== END 2023-02-09 23:59 ==
LOC: LAB.DROPOF 02-10 10:36
PROVIDERS: PCP Family Medicine; Visit Provider Family Medicine
DX: E11.9 Type 2 diabetes mellitus without complications (principal); I11.9 Hypertensive heart disease without heart failure; I25.10 Atherosclerotic heart disease of native coronary artery without angina pectoris; Z90.49 Acquired absence of other specified parts of digestive tract; Z93.2 Ileostomy status; Z95.1 Presence of aortocoronary bypass graft; Z95.5 Presence of coronary angioplasty implant and graft; Z79.4 Long term (current) use of insulin; Z87.891 Personal history of nicotine dependence
CPT/HCPCS: 80048

== ENCOUNTER 2023-06-15 11:47 | Outpatient (CLI) | payer MEDICARE, MEDICAID, SELFPAY ==
[2023-06-15 19:06] LABS: Basophils # 0.1 K/mm3 (0-0.2); Basophils % 0.8 % (0.1-2.0); Eosinophils # 0.1 K/mm3 (0.0-0.4); Eosinophils % 2.2 % (0.1-12.0); Hematocrit 46.2 % (42.0-52.0); Hemoglobin 15.2 g/dL (14.1-18.0); Lymphocytes # 1.6 K/mm3 (0.7-4.5); Lymphocytes % 25.2 % (10-50); Mean Corpuscular HGB Conc 32.9 g/dL (31.8-35.4); Mean Corpuscular Hemoglobin 30.9 pg (27.0-31.2); Mean Corpuscular Volume 93.9 fl (80-94); Monocytes # 0.5 K/mm3 (0.1-1.0); Neutrophils # 3.9 K/mm3 (1.8-7.8); Neutrophils % 63.8 % (37.0-80.0); Platelet Count 223 K/mm3 (142-424); Red Blood Count 4.92 M/mm3 (4.60-6.20); Red Cell Distribution Width 14.6 % (11.5-17.5); White Blood Count 6.1 K/mm3 (4.8-10.8)
[2023-06-15 19:57] LABS: Alanine Aminotransferase 27 U/L (12-78); Albumin Level 4.3 g/dl (3.5-5.0); Albumin/Globulin Ratio 1.6 (1.1-1.8); Alkaline Phosphatase 94 U/L (38-126); Anion Gap 14.6 mEq/L (5-15); Aspartate Amino Transferase 26 U/L (17-59); Bilirubin,Total 1.1 mg/dl (0.2-1.3); Blood Urea Nitrogen 13 mg/dl (9-20); Carbon Dioxide 27 mmol/L (22.0-30.0); Chloride 104 mmol/L (98-107); Estimated Glomerular Filt Rate 116 ml/min (>60); GFR (African American) 140 ML/MIN (>60); Globulin 2.7 g/dL (1.3-3.2); Glucose 201 mg/dl (74-100); Potassium 4.6 mmoL/L (3.5-5.1); Sodium 141 mmol/L (136-145)
== END 2023-06-15 23:59 | disposition home or self-care (01) ==
LOC: LAB.DROPOF 06-16 11:48
PROVIDERS: PCP Family Medicine; Visit Provider Family Medicine
DX: Z93.2 Ileostomy status (principal); D64.9 Anemia, unspecified
CPT/HCPCS: 80053; 85025

== ENCOUNTER 2023-12-28 11:30 | Outpatient (CLI) | payer MEDICARE, MEDICAID, SELFPAY ==
[2023-12-28 18:55] LABS: Basophils % 0.7 % (0.1-2.0); Eosinophils # 0.2 K/mm3 (0.0-0.4); Eosinophils % 2.7 % (0.1-12.0); Hematocrit 44.9 % (42.0-52.0); Hemoglobin 15.6 g/dL (14.1-18.0); Lymphocytes # 1.7 K/mm3 (0.7-4.5); Lymphocytes % 28.6 % (10-50); Mean Corpuscular HGB Conc 34.6 g/dL (31.8-35.4); Mean Corpuscular Hemoglobin 30.7 pg (27.0-31.2); Mean Corpuscular Volume 88.7 fl (80-94); Mean Platelet Volume 9.2 fl (7.4-10.4); Monocytes # 0.5 K/mm3 (0.1-1.0); Monocytes % 7.4 % (1.7-9.3); Neutrophils # 3.7 K/mm3 (1.8-7.8); Neutrophils % 60.6 % (37.0-80.0); Platelet Count 223 K/mm3 (142-424); Red Blood Count 5.06 M/mm3 (4.60-6.20); Red Cell Distribution Width 14.5 % (11.5-17.5); White Blood Count 6.1 K/mm3 (4.8-10.8)
[2023-12-28 19:16] LABS: Alanine Aminotransferase 24 U/L (12-78); Albumin/Globulin Ratio 1.6 (1.1-1.8); Alkaline Phosphatase 87 U/L (38-126); Anion Gap 14.9 mEq/L (5-15); Aspartate Amino Transferase 28 U/L (17-59); Bilirubin,Total 1.1 mg/dl (0.2-1.3); Blood Urea Nitrogen 8 mg/dl (9-20); Calcium 9.6 mg/dl (8.4-10.2); Carbon Dioxide 22 mmol/L (22.0-30.0); Chloride 108 mmol/L (98-107); Estimated Glomerular Filt Rate 115 ml/min (>60); GFR (African American) 140 ML/MIN (>60); Globulin 2.5 g/dL (1.3-3.2); Glucose 70 mg/dl (74-100); Potassium 3.9 mmoL/L (3.5-5.1); Sodium 141 mmol/L (136-145); Total Protein,Serum 6.5 g/dl (6.3-8.2)
== END 2023-12-28 23:59 | disposition home or self-care (01) ==
LOC: LAB.DROPOF 12-29 07:55
PROVIDERS: PCP Family Medicine; Visit Provider Family Medicine
DX: Z90.49 Acquired absence of other specified parts of digestive tract (principal); E11.9 Type 2 diabetes mellitus without complications
CPT/HCPCS: 80053; 85025

== ENCOUNTER 2024-05-23 12:29 | Outpatient (CLI) | payer MEDICARE, SELFPAY ==
[2024-05-23 19:20] LABS: Chloride 109 mmol/L (98-107); Sodium 145 mmol/L (136-145)
[2024-05-23 19:23] LABS: Blood Urea Nitrogen 10 mg/dl (9-20); Estimated Glomerular Filt Rate 86 ml/min (>60); GFR (African American) 105 ML/MIN (>60)
[2024-05-23 19:24] LABS: Anion Gap 17.7 mEq/L (5-15); Calcium 9.8 mg/dl (8.4-10.2); Carbon Dioxide 23 mmol/L (22.0-30.0); Glucose 86 mg/dl (74-100); Potassium 4.7 mmoL/L (3.5-5.1)
== END 2024-05-23 23:59 | disposition home or self-care (01) ==
LOC: LAB.DROPOF 05-24 12:00
PROVIDERS: PCP Family Medicine; Visit Provider Family Medicine
DX: E11.69 Type 2 diabetes mellitus with other specified complication (principal); Z79.4 Long term (current) use of insulin
CPT/HCPCS: 80048

== ENCOUNTER 2024-08-22 12:25 | Outpatient (CLI) | payer MEDICARE, SELFPAY ==
[2024-08-22 19:41] LABS: Anion Gap 16.7 mEq/L (5-15); Blood Urea Nitrogen 12 mg/dl (9-20); Calcium 10.6 mg/dl (8.4-10.2); Carbon Dioxide 24 mmol/L (22.0-30.0); Chloride 103 mmol/L (98-107); Creatinine,Serum 0.70 mg/dl (0.66-1.25); Estimated Glomerular Filt Rate 115 ml/min (>60); GFR (African American) 140 ML/MIN (>60); Glucose 104 mg/dl (74-100); Potassium 4.7 mmoL/L (3.5-5.1); Sodium 139 mmol/L (136-145)
--- OUTSIDE RECORDS SUMMARY | 2024-08-23 10:01 | XMS_ITS | Clinical Summary ---
Author Organization [facility] Address [address] [place] [address] Care Team Providers Care Production Control Manager Name Role Phone Cristobal Batista MD Primary Care Provider [phone]- [phone] Allergies No known active allergies Medications atorvastatin (Lipitor) 80 MG tablet Take 80 mg by mouth every night. 1 Active Continuous Blood Gluc Mill Tender Washing (Dexcom G6 book publisher) device See administration instructions. 1 Active Continuous Blood Gluc Sensor (Dexcom G6 Sensor) misc CHANGE EVERY 10 DAYS 1 Active Continuous Blood Gluc Transmit (Dexcom G6 transmitter) misc USE DAILY (NEW TRANSMITTER EVERY 3 MONTHS) 1 Active Nascobal 500 MCG/0.1ML solution nasal solution INHALE 1 SPRAY INTO ONE NOSTRIL ONCE A WEEK 1 Active ergocalciferol 1.25 MG (53796 UT) capsule Take 1 capsule by mouth 1 (one) time per week. 0 Active OneTouch Verio test strip USE 1 STRIP TO CHECK GLUCOSE 4 TIMES DAILY 1 Active Lancets (OneTouch Delica Plus [id number]) misc USE 1 LANCET TO CHECK GLUCOSE 4 TIMES DAILY 1 Active metoprolol tartrate (Lopressor) 25 MG tablet Take 25 mg by mouth 2 (two) times a day. 1 Active oxyCODONE (Roxicodone) 5 MG immediate release tablet 1 Active aspirin 81 MG EC tablet Take 81 mg by mouth 1 (one) time each day. Active Lantus SoloStar 100 UNIT/ML injection pen Inject 15 Units under the skin 2 (two) times a day. 30 mL 1 2 Active HumaLOG KWIKPEN 100 UNIT/ML injection Instructed to inject 8 units before meals plus correction 1:50>150. MDD: 30 units 15 mL 3 2 Active Continuous Blood Gluc Transmit (Dexcom G6 transmitter) misc change every 90 days 1 each 3 2 Active Continuous Blood Gluc Sensor (Dexcom G6 Sensor) misc Change every 10 days 3 each 11 2 Active Active Problems Problem Noted Date Diagnosed Date Poorly controlled diabetes mellitus 10/02/2020 Ileostomy status 10/02/2020 Poor personal hygiene 10/02/2020 Anemia, chronic disease 09/12/2019 Coronary artery disease 09/12/2019 Diabetes mellitus type 2 with complications 08/09 Ulcerative pancolitis 08/23/2019 Immunizations Immunization Administration Dates Next Due Influenza, injectable, quadrivalent, preservativ e free 01/11/2020 Family History Medical History Relation Name Comments Cardiac disorder Father Diabetes Father Hypertension Father Cardiac disorder Mother Relation Name Status Comments Father Mother Social History Tobacco Use Types Packs/Day Years Used Date Smoking Tobacco: Former Smokeless Tobacco: Never Alcohol Use Standard Drinks/Week Comments No 0 (1 standard drink = 0.6 oz pur e alcohol) Sex and Gender Information Value Date Recorded Sex Assigned at Not on file Legal Sex Male 7:50 PM EDT Gender Identity Not on file Sexual Orientation Not on file Last Filed Vital Signs Vital Sign Reading Time Taken Comments Blood Pressure 108/69 10/02/2020 8:06 AM EDT Pulse 77 10/02/2020 8:06 AM EDT Temperature 36.8 C (98.2 F) 10/02/2020 8:06 AM EDT Respiratory Rate - - Oxygen Saturation - - Inhaled Oxygen Concentration - - Weight 99.8 kg (220 lb) 05/29/2021 3:00 PM EDT Height 175.3 cm (5' 9 ) 07/31/2020 10:41 AM EDT Body Mass Index 32.49 07/31/2020 10:41 AM EDT Plan of Treatment Health Maintenance Due Date Last Done Comments [facility]-Depression Screening 1964 [facility]-Infant/Child/Adol SDOH Screenings 1965 [facility]- SDOH Screenings 1982 [facility]-Adult SDOH Screenings 1982 [facility]-Hepatitis B Vaccines (1 of 3 - 19+ 3-dose series) 09/21/1983 CT Colonography 2009 FIT-DNA 2009 FIT 2009 FOBT 2009 Sigmoidoscopy 2009 [facility]-Zoster Vaccines (1 of 2) 2014 [facility]-Pneumococcal Vaccine: 50+ Years (2 of 2 - PCV) 05/14/2018 05/14/2017 [id number] Vaccine ( - 2023- season) 2023 12/25/2020, 04/27/2020, 04/06/2020 [facility]-Influenza Vaccine (#1) 10/09/202412/21, 01/11/2020, 11/08/2018, Additional history exists [facility]-DTaP,Tdap,and Td Vaccines (2 - Td or Tdap) 05/26/2026 05/26/2016 Colonoscopy 08/13/2029 08/14/2019, 08/14/2019 [facility]-Colorectal Cancer Screening 08/13/2029 [facility]-Diabetes: Hemoglobin A1C Discontinued 05/01/2020, 11/09/2019, 10/06/2019, Additional history exists HPV Vaccines Aged Out No longer eligi ble based on patient's age to complete this topic [facility]-HIB Vaccines Aged Out No longer e ligible based on patient's age to complete this topic [facility]-Hepatitis A Vaccines Aged Out No longer eligible based on patient's age to complete this topic [facility]-IPV Vaccines Aged Out No longer e ligible based on patient's age to complete this topic [facility]-Rotavirus Vaccines Aged Out No lo nger eligible based on patient's age to complete this topic Procedures Procedure Name Priority Date/Time Associated Diagnosis Comments HEMOGLOBIN A1C Routine 05/01/2020 9:37 AM EDT COLONOSCOPY 08/14/2019 from Last 3 Months or Most Recently Relevant to Health Maintenance Results * (ABNORMAL) Hemoglobin A1c (05/01/2020 9:37 AM EDT) Hemoglobin A1c 7.5(H) 4.7 - 6.0 % [facility] Comment: Glycohemoglobin Reference Range, 0 years and up: 4.7 to 6.0% . HA1C Interpretive Data: Diagnosis of Diabetes: Diabetic > or = 6.5% Pre-diabetic 5.7 to 6.4% Non-diabetic < or = 5.6% . Glycemic Targets for Type I and Type II Diabetics: Non- Adults <7.0% Adults <6.0% Children and Adolescents <7.5% . Source: [employer]. Standards of medical care in diabetes, 2017. Diabetes Care.2017:40 (suppl 1):S1-S135. . HbA1c assay performed by an ion-exchange chromatography method that is certified traceable to the DCCT. 05/01/2020 9:37 AM EDT 05/01/2020 10:33 AM EDT David Sanders MD LAB BLOOD ORDERABLES Final Res ult SUNQUEST * COLONOSCOPY (08/14/2019) Anatomical Region Laterality Modality Endoscopy Narrative 08/14/2019 Ordered by an unspecified provider. Historical Provider GI PROCEDURE ORDERABLES F inal Result from Last 3 Months or Most Recently Relevant to Health Maintenance [facility] [place] Care Teams Production Control Manager Relationship Specialty Start Date End Date Cristobal Batista MD [address] [place] [id number] PCP - General 06/21/20
--- OUTSIDE RECORDS SUMMARY | 2024-08-23 10:01 | XMS_ITS | Encounter Summary ---
Author Organization [facility] Address [address] [place] [address] Care Team Providers Care Line Haul Driver Name Role Phone Cristobal Batista MD Primary Care Provider +1- [phone] Encounter Details Date Type Department Care Team (Latest Contact Info) Description 02/15/2023 [facility] [address] [place] [address] Stephen Leyva MD [address] [id number] Diabetes mellitus type 2 with complications (CMS/HCC) (Primary Dx) Social History Tobacco Use Types Packs/Day Years Used Date Smoking Tobacco: Former Smokeless Tobacco: Never Alcohol Use Standard Drinks/Week Comments No 0 (1 standard drink = 0.6 oz pur e alcohol) Sex and Gender Information Value Date Recorded Sex Assigned at Not on file Legal Sex Male 7:50 PM EDT Gender Identity Not on file Sexual Orientation Not on file documented as of this encounter Plan of Treatment Not on file documented as of this encounter Visit Diagnoses Diagnosis Diabetes mellitus type 2 with complications (CMS/HCC)- Primary documented in this encounter Additional Health Concerns Assessment Noted Time A fall risk assessment has been complete d for the patient 10/02/2020 8:08 AM EDT documented as of this encounter Care Teams Line Haul Driver Relationship Specialty Start Date End Date Cristobal Batista MD [address] [place] [phone] PCP - General 06/21/20 documented as of this encounter
== END 2024-08-22 23:59 | disposition home or self-care (01) ==
LOC: LAB.DROPOF 08-23 09:56
PROVIDERS: PCP Family Medicine; Visit Provider Family Medicine
DX: E11.69 Type 2 diabetes mellitus with other specified complication (principal)
CPT/HCPCS: 80048

== ENCOUNTER 2024-10-31 12:00 | Outpatient (CLI) | payer MEDICARE, SELFPAY ==
[2024-10-31 15:54] LABS: Chloride 104 mmol/L (98-107); Potassium 4.2 mmoL/L (3.5-5.1); Sodium 139 mmol/L (136-145)
[2024-10-31 15:57] LABS: Anion Gap 14.2 mEq/L (5-15); Blood Urea Nitrogen 14 mg/dl (9-20); Calcium 9.8 mg/dl (8.4-10.2); Carbon Dioxide 25 mmol/L (22.0-30.0); Creatinine,Serum 0.70 mg/dl (0.66-1.25); Estimated Glomerular Filt Rate 115 ml/min (>60); GFR (African American) 139 ML/MIN (>60); Glucose 112 mg/dl (74-100)
--- OUTSIDE RECORDS SUMMARY | 2024-11-01 09:42 | XMS_ITS | Clinical Summary ---
Author Organization [facility] Address [address] [place] [address] Care Team Providers Care Us Customs And Border Officer Name Role Phone Cristobal Batista MD Primary Care Provider +1- [phone] Allergies No known active allergies Medications atorvastatin (Lipitor) 80 MG tablet Take 80 mg by mouth every night. 1 Active Continuous Blood Gluc Capital Equipment Specialist (Dexcom G6 saw maker) device See administration instructions. 1 Active Continuous Blood Gluc Sensor (Dexcom G6 Sensor) misc CHANGE EVERY 10 DAYS 1 Active Continuous Blood Gluc Transmit (Dexcom G6 transmitter) misc USE DAILY (NEW TRANSMITTER EVERY 3 MONTHS) 1 Active Nascobal 500 MCG/0.1ML solution nasal solution INHALE 1 SPRAY INTO ONE NOSTRIL ONCE A WEEK 1 Active ergocalciferol 1.25 MG (34670 UT) capsule Take 1 capsule by mouth 1 (one) time per week. 0 Active OneTouch Verio test strip USE 1 STRIP TO CHECK GLUCOSE 4 TIMES DAILY 1 Active Lancets (OneTouch Delica Plus [id number]) misc USE 1 LANCET TO CHECK GLUCOSE [...] SDOH Screenings 1982 [facility]-Adult SDOH Screenings 1982 CT Colonography 2009 FIT-DNA 2009 FIT 2009 FOBT 2009 Sigmoidoscopy 2009 [facility]-Zoster Vaccines (1 of 2) 2014 [facility]-Pneumococcal Vaccine: 50+ Years (2 of 2 - PCV) 05/14/2018 05/14/2017 [id number] Vaccine (4 - 2024- season) 2024 12/25/2020, 04/27/2020, 04/06/2020 [facility]-Influenza Vaccine (#1) 10/09/202412/21, 01/11/2020, 11/08/2018, Additional history exists [facility]-DTaP,Tdap,and Td Vaccines (2 - Td or Tdap) 05/26/2026 05/26/2016 Colonoscopy 08/13/2029 08/14/2019, 08/14/2019 [facility]-Colorectal Cancer Screening 08/13/2029 [facility]-RSV Vaccine: 60+ Years or (1 - 1-dose 75+ series) 09/21/2039 [facility]-Diabetes: Hemoglobin A1C Discontinued 05/01/2020, 11/09/2019, 10/06/2019, [...] <6.0% Children and Adolescents <7.5% . Source: [place] [employer]. Standards of medical care in diabetes, 2017. Diabetes Care.2017:40 (suppl 1):S1-S135. . HbA1c assay performed by an ion-exchange chromatography method that is certified traceable to the DCCT. 05/01/2020 9:37 AM EDT 05/01/2020 10:33 AM EDT David Sanders MD LAB BLOOD ORDERABLES Final Res ult CAM * COLONOSCOPY (08/14/2019) Anatomical Region Laterality Modality Endoscopy Narrative 08/14/2019 Ordered by an unspecified provider. Historical Provider GI PROCEDURE ORDERABLES Josey l Result from Last 3 Months or Most Recently Relevant to Health Maintenance Insurance [facility] MEDICAID [place] Care Teams Us Customs And Border Officer Relationship Specialty Start Date End Date Lynne, Cristobal H, MD [address] [place] [id number] PCP - General 06/21/20
--- OUTSIDE RECORDS SUMMARY | 2024-11-01 09:42 | XMS_ITS | Encounter Summary ---
Author Organization [facility] Address [address] 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
== END 2024-10-31 23:59 ==
LOC: LAB.DROPOF 11-01 09:33
PROVIDERS: PCP Family Medicine; Visit Provider Family Medicine
DX: E11.9 Type 2 diabetes mellitus without complications (principal)
CPT/HCPCS: 80048; 82043; 82570

== ENCOUNTER 2025-01-16 10:45 | Outpatient (CLI) | payer MEDICARE, SELFPAY ==
[2025-01-16 15:24] LABS: Anion Gap 18.1 mEq/L (5-15); Blood Urea Nitrogen 9 mg/dl (9-20); Calcium 9.4 mg/dl (8.4-10.2); Carbon Dioxide 21 mmol/L (22.0-30.0); Chloride 103 mmol/L (98-107); Creatinine,Serum 0.70 mg/dl (0.66-1.25); Estimated Glomerular Filt Rate 115 ml/min (>60); GFR (African American) 139 ML/MIN (>60); Glucose 225 mg/dl (74-100); Potassium 5.1 mmoL/L (3.5-5.1); Sodium 137 mmol/L (136-145)
== END 2025-01-16 23:59 ==
LOC: LAB.DROPOF 01-18 10:46
PROVIDERS: PCP Family Medicine; Visit Provider Family Medicine
DX: I25.10 Atherosclerotic heart disease of native coronary artery without angina pectoris (principal)
CPT/HCPCS: 80048

== ENCOUNTER 2025-01-18 08:26 | Outpatient (CLI) | payer MEDICARE, SELFPAY ==
--- OUTSIDE RECORDS SUMMARY | 2025-01-18 08:33 | XMS_ITS | Clinical Summary ---
Author Organization [facility] Address [address] [place] [address] Care Team Providers Care Signing Teacher Name Role Phone Cristobal Batista MD Primary Care Provider +1- [phone] Allergies No known active allergies Medications atorvastatin (Lipitor) 80 MG tablet Take 80 mg by mouth every night. 1 Active Continuous Blood Gluc Scanning Manager (Dexcom G6 software configuration manager) device See administration instructions. 1 Active Continuous Blood Gluc Sensor (Dexcom G6 Sensor) misc CHANGE EVERY 10 DAYS 1 Active Continuous Blood Gluc Transmit (Dexcom G6 transmitter) misc USE DAILY (NEW TRANSMITTER EVERY 3 MONTHS) 1 Active Nascobal 500 MCG/0.1ML solution nasal solution INHALE 1 SPRAY INTO ONE NOSTRIL ONCE A WEEK 1 Active ergocalciferol 1.25 MG (92602 UT) capsule Take 1 capsule by mouth 1 (one) time per week. 0 Active OneTouch Verio test strip USE 1 STRIP TO CHECK GLUCOSE 4 TIMES DAILY 1 Active Lancets (OneTouch Delica Plus [id number]) misc USE 1 LANCET TO CHECK GLUCOSE [...] Date Last Done Comments [facility]-Depression Screening 1964 [facility]-/Child/Adol SDOH Screenings 1964 [facility]- SDOH Screenings 1982 [facility]-Adult SDOH Screenings 1982 CT Colonography 2009 FIT-DNA 2009 FIT 2009 FOBT 2009 Sigmoidoscopy 2009 [facility]-Zoster Vaccines (1 of 2) 2014 [facility]-Pneumococcal Vaccine: 50+ Years (2 of 2 - PCV) 05/14/2018 05/14/2017 [id number] Vaccine (4 - 2024- season) 2024 12/25/2020, [...] <6.0% Children and Adolescents <7.5% . Source: [place] [employer]. Standards of medical care in [...] Most Recently Relevant to Health Maintenance Insurance [facility] MEDICAID [place] Care Teams Signing Teacher Relationship Specialty Start Date End Date Lynne, Cristobal H, MD [address] [place] [id number] PCP - General 06/21/20
--- OUTSIDE RECORDS SUMMARY | 2025-01-18 08:33 | XMS_ITS | Encounter Summary ---
Author Organization [facility] Address [address] 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
--- NOTE | 2025-01-18 08:45 | CA_ITS ---
APPROVED REPORT EXAM: Comprehensive 2D, Doppler, and color-flow Echocardiogram Seafood Specialist: ARTHUR Roy, RVS Ht: 5 ft 9 in Wt: 210lbs BSA: 2.11 BP: 122/70 mmHg Indications: ASCVD, CABG, Stent, HTN, DM 2D Dimensions Left Atrium 3.45 cm LA Volume 44.60 mL Ascending Aorta 3.63 cm LA Volume Index 20.60 mL/m2 (M/F) 16-34 M-Mode Dimensions RVDd 2.93 cm (0.9-2.6) LA Diam 2.80 cm (1.9-4.0) LVDd 4.14 cm (3.5-5.7) LVDs 2.89 cm (3.5-5.7) IVSd 1.07 cm (0.6-1.1) PWd 1.21 cm (0.6-1.1) EF (Teich) 58.00% EPSs 0.36 cm FS 30.20% EDV (Teich) 75.90 mL TAPSE 1.86 (<1.7) ESV (Teich) 31.90 mL LV Diastology E Decel Time 270 (160-240 msec) E/A Ratio 1.08 MED A' 9.40 cm/s LAT A' 9.80 cm/s Aortic Valve CLIFFORD Index 1.51 cm2/m2 AoV Peak Yovanny. 107.0 (50-130 cm/s) AO Peak GR. 4.60 mmHg AO Mean GR. 2.30 (<5 mmHg) AO VTI 20.3 (18-25 cm) CLIFFORD (VTI) 3.27 (2.5-4.5 cm2) Mitral Valve MV A Velocity 63.0 (40-130 cm/s) E/A Ratio 1.08 Pulmonary Valve MT End VMAX 156.0 cm/s Left Ventricle The left ventricle is normal size. Left ventricular systolic function is low-normal. There is normal left ventricular wall thickness. There is moderate hypokinesis of the septal and inferoseptal LV martines. Transmitral Doppler flow pattern suggests impaired LV relaxation. LVEF is 50% Right Ventricle The right ventricle is mildly dilated. The right ventricular systolic function is normal. Atria The left atrium size is normal. The right atrium size is normal. There is no color Doppler evidence of interatrial shunt. Aortic Valve The aortic valve opens well. There is no hemodynamically significant aortic valvular stenosis. Trace aortic regurgitation is present. Mitral Valve The mitral valve is normal in structure. No evidence of mitral valve stenosis. Trace mitral regurgitation is present. Tricuspid Valve The tricuspid valve leaflets are thin and pliable. Trace tricuspid regurgitation. There is insufficient TR jet to estimate RVSP. Pulmonic Valve The pulmonary valve is grossly normal in structure. Trace pulmonic valve regurgitation is present. Great Vessels The aortic root is normal in size. The ascending aorta is mildly dilated, measuring 3.9 cm in diameter. IVC is normal in size and collapses >50% with inspiration. Pericardium There is no pericardial effusion. Other Information Study Quality: Technically Difficult Conclusion Low-normal LV systolic function (LVEF 50%). Moderate hypokinesis of the septal and inferoseptal LV martines. Mild RV dilation. No significant valvular stenosis or regurgitation. The ascending aorta is mildly dilated, measuring 3.9 cm in diameter. Correlation with new or recent CTA chest is recommended. Electronically signed by : Clau Hair MD 01/28/2025 15:50:23
== END 2025-01-18 23:59 | disposition home or self-care (01) ==
LOC: RT 08:26
PROVIDERS: PCP Family Medicine; Visit Provider Family Medicine
DX: I25.10 Atherosclerotic heart disease of native coronary artery without angina pectoris (principal)
CPT/HCPCS: 93306